=== PATIENT | male | born 1945 | race Caucasian/White ===

== ENCOUNTER 2020-05-27 09:13 | Outpatient (REF) | payer MEDICARE, SELFPAY ==
[2020-05-27 11:07] LABS: MANUAL DIFF FLAG NO
[2020-05-27 11:16] LABS: Basophils Percent Auto 0.5 % (0-2); Eosinophils Absolute Auto 0.3 X10*3/uL (0.0-0.4); Eosinophils Percent Auto 4.7 % (0-4); Hematocrit 45.5 % (42-52); Hemoglobin 14.8 g/dl (14.0-18.0); Imm Gran Abs Auto 0.01 X10*3/uL (0.00-0.03); Imm Gran Pct Auto 0.2 % (0.0-0.4); Lymphocytes Absolute Auto 2.6 X10*3/uL (1.2-4.9); Mean Corpuscular HGB Conc 32.5 g/dl (31.0-36.0); Mean Corpuscular Hemoglobin 31.2 pg (27.0-33.0); Mean Platelet Volume 12.9 fL (9.4-12.4); Monocytes Absolute Auto 0.5 X10*3/uL (0.1-1.2); Monocytes Percent Auto 8.3 % (2-11); Neutrophils Absolute Auto 2.2 X10*3/uL (2.0-8.3); Neutrophils Percent Auto 39.3 % (45-73); Platelet Count 119 X10*3/uL (160-400); Red Blood Count 4.74 X10*6/uL (4.60-5.80); Red Cell Distribution Width 12.7 % (11.0-16.0); White Blood Count 5.5 X10*3/uL (4.8-10.8)
[2020-05-27 11:39] LABS: Alanine Aminotransferase 102 U/L (0-40); Albumin Level 4.2 g/dL (3.5-5.0); Alkaline Phosphatase 93 U/L (39-117); Anion Gap 12 (12-20); Aspartate Amino Transferase 80 U/L (5-37); Bilirubin Total 0.8 mg/dL (0.0-1.0); Blood Urea Nitrogen 18 mg/dL (9-16); Calcium 8.7 mg/dL (8.4-10.2); Carbon Dioxide 28 mmol/L (22-29); Chloride 104 mmol/L (96-108); Estimated Glomerular Filt Rate > 60; Glucose Fasting 105 mg/dL (60-99); Potassium 4.2 mmol/l (3.3-5.1); Sodium 140 mmol/L (135-145); Total Protein 6.8 g/dL (6.5-8.0)
[2020-05-27 11:54] LABS: Hepatitis B Core Antibody Nonreactive (Nonreactive); ~Hepatitis B Surface Antibody NONREACTIVE (Nonreactive); ~Hepatitis C Antibody Nonreactive (Nonreactive)
[2020-05-27 11:59] LABS: HBsAGNum1 0.19 S/CO (0.00-0.99); Hepatitis A Antibody IgM 0.13 Index (0-0.79); Hepatitis B Surface Antigen Negative (Negative); ~Hepatitis A Antibody IgM Nonreactive (Nonreactive)
[2020-05-27 12:20] LABS: PSA,Total (Free>4and<10) < 0.05 ng/mL (0.00-4.00)
== END 2020-05-27 09:14 | disposition home or self-care (01) ==
LOC: HO.HMGCLDS 09:13
PROVIDERS: PCP Internal Medicine; Visit Provider Internal Medicine
DX: D69.6 Thrombocytopenia, unspecified (principal); I10 Essential (primary) hypertension; R74.8 Abnormal levels of other serum enzymes; R73.01 Impaired fasting glucose; Z12.5 Encounter for screening for malignant neoplasm of prostate
CPT/HCPCS: 36415; 80053; 84153; 85025; 86704; 86706; 86709; 86803; 87340

== ENCOUNTER 2020-12-20 10:19 | Outpatient (REF) | payer MEDICARE, SELFPAY ==
[2020-12-20 11:17] LABS: MANUAL DIFF FLAG NO
[2020-12-20 11:28] LABS: Basophils Percent Auto 0.5 % (0-2); Eosinophils Absolute Auto 0.2 X10*3/uL (0.0-0.4); Hemoglobin 14.3 g/dl (14.0-18.0); Imm Gran Abs Auto 0.01 X10*3/uL (0.00-0.03); Imm Gran Pct Auto 0.2 % (0.0-0.4); Lymphocytes Absolute Auto 2.5 X10*3/uL (1.2-4.9); Lymphocytes Percent Auto 45.9 % (20-40); Mean Corpuscular HGB Conc 32.5 g/dl (31.0-36.0); Mean Corpuscular Volume 95.4 fL (80-98); Mean Platelet Volume 12.8 fL (9.4-12.4); Monocytes Absolute Auto 0.5 X10*3/uL (0.1-1.2); Monocytes Percent Auto 9.7 % (2-11); Neutrophils Absolute Auto 2.2 X10*3/uL (2.0-8.3); Neutrophils Percent Auto 39.7 % (45-73); Platelet Count 112 X10*3/uL (160-400); Red Blood Count 4.61 X10*6/uL (4.60-5.80); Red Cell Distribution Width 13.2 % (11.0-16.0); White Blood Count 5.5 X10*3/uL (4.8-10.8)
[2020-12-20 12:07] LABS: Alanine Aminotransferase 84 U/L (0-40); Albumin Level 3.9 g/dL (3.5-5.0); Alkaline Phosphatase 87 U/L (39-117); Anion Gap 13 (12-20); Aspartate Amino Transferase 82 U/L (5-37); Blood Urea Nitrogen 18 mg/dL (9-16); Carbon Dioxide 25 mmol/L (22-29); Chloride 108 mmol/L (96-108); Estimated Glomerular Filt Rate > 60; Glucose Fasting 111 mg/dL (60-99); Potassium 4.4 mmol/L (3.3-5.1); Sodium 142 mmol/L (135-145); Total Protein 6.5 g/dL (6.5-8.0)
[2020-12-20 12:16] LABS: TSH reflex Free T4 2.62 uIU/mL (0.32-4.0)
== END 2020-12-20 10:20 | disposition home or self-care (01) ==
LOC: HO.HMGCLDS 10:19
PROVIDERS: PCP Internal Medicine; Visit Provider Internal Medicine
DX: D69.6 Thrombocytopenia, unspecified (principal); I10 Essential (primary) hypertension; R73.01 Impaired fasting glucose; R74.8 Abnormal levels of other serum enzymes
CPT/HCPCS: 36415; 80053; 82306; 84443; 85025

== ENCOUNTER 2021-02-12 17:21 | Emergency (ER) | payer MEDICARE, OTHER, SELFPAY ==
--- NOTE | ~2021-02-12 | CT_ITS ---
EXAMINATION: CT HEAD WITHOUT CONTRAST CLINICAL INFORMATION: Vertigo. COMPARISON: None TECHNIQUE: Contiguous axial imaging was performed from the skull base to vertex without intravenous administration of contrast. This CT examination was performed using dose optimization techniques as appropriate, variously including the following: *Automated exposure control. *Adjustment of mA and/or kV according to patient size (this includes techniques or standardized protocols for targeted exams where dose is matched to indication/reason for exam; i.e. extremities or head). *Use of iterative reconstruction technique. DLP: 697 mGy-cm FINDINGS: There is no evidence of acute intracranial hemorrhage or territorial infarction. No abnormal mass effect or midline shift is seen. [id number] matter differentiation is well preserved. No extra-axial fluid collections are identified. The ventricles and sulci are mildly prominent, consistent with diffuse atrophy. Mild periventricular white matter hypoattenuation, consistent with mild chronic microvascular ischemic disease. The osseous structures and soft tissues are normal. The mastoid air cells and visualized portions of the paranasal sinuses are well aerated. CT/CT head/brain wo con IMPRESSION: 1. No acute intracranial hemorrhage or mass effect. 2. Mild diffuse volume loss and chronic microvascular ischemic disease.
[2021-02-12 17:26] VITALS: BP 160/90; PULSE 45; O2SAT 98
[2021-02-12 17:30] VITALS: BP 166/59; PULSE 43; RESP 18; O2SAT 97; BMI 34.5
--- NOTE | 2021-02-12 17:42 | ED_ITS ---
HPI - Dizziness General Chief Complaint: Dizziness Stated Complaint: DIZZINESS X'S 2 TODAY Time Seen by Provider: 02/12/21 17:25 Source: patient, family, EMS and old records reviewed History of Present Illness HPI Narrative: Patient is a history of vertigo. He states he has recently been seen in a clinic and was started on meclizine which he has been taking once daily. He has been having intermittent episodes of feeling dizzy which he describes as the room spinning. It is worse with head movement. A causes nausea and vomiting. Episodes typically were lasting 1-2 minutes. The patient lasting increasingly longer. His last 2 episodes, 1 this morning and the 1 that brought him in hip so far lasted 15-20 minutes each. His current episode seems to be improving but he still has some disease symptoms. He has chronic tinnitus but it is not getting worse. He wears hearing aids. He is due to see physical therapy for his vertigo. He has never had imaging the with. History of reflux and hypertension. Not a smoker. No other obvious risk factors for stroke. Related Data Home Medications Medication Instructions Recorded Confirmed aspirin 81 mg tablet,delayed 81 mg PO DAILY 05/16/20 01/24/21 release (Adult Aspirin Regimen) flu vacc 2019-(65yr See Rx Instructions .ROUTE .COMPLEX 05/16/20 01/24/21 up)-MF59C(PF) 60 mcg(15 mcgx4)/0.5 mL IM syringe multivitamin 1 tab PO DAILY 05/16/20 01/24/21 Previous Rx's Medication Instructions Recorded lisinopril 20 mg tablet 20 mg PO DAILY 90 Days #90 tab 09/21/20 omeprazole 20 mg capsule,delayed 20 mg PO DAILY #90 cap 12/20/20 release prednisone 20 mg tablet 20 mg PO .COMPLEX #18 tab 01/14/21 meclizine 25 mg tablet 25 mg PO DAILY #10 tab 02/09/21 ondansetron HCl 4 mg tablet 4 mg PO Q8H PRN #20 tab 02/12/21 (Zofran) Allergies Allergy/AdvReac Type Severity Reaction Status Date / Time No Known Allergies Allergy Verified 02/09/21 13:59 [No Known Allergies*] Review of Systems Constitutional: Comments: No recent fevers or chills Eyes: Comments: No change in vision ENT: Comments: Chronic tinnitus without recent change Cardiovascular: Comments: No chest pain Respiratory: Comments: No difficulty breathing Gastrointestinal: Comments: No abdominal pain. Positive nausea vomiting. No diarrhea Neurologic: Comments: No focal weakness numbness or paresthesias. No diffi culty speaking. [facility] Past Medical History Medical History Elevated liver enzymes Essential hypertension GERD (gastroesophageal reflux disease) Impaired fasting glucose Prostate cancer Right bundle branch block Thrombocytopenia Surgical History History of hernia repair History of prostatectomy Family History Family History Father Diabetes mellitus Mother Alcoholic Brother Cancer of prostate Brother No problems noted. Sister No problems noted. Social History Social History Housing: House Alcohol intake: never Patient Tobacco Use Status: Never used Tobacco e-Cigarette/Vaping Use: Never Used Second Hand Smoke Exposure: No Advance Directives: No Advance Directives Information Provided: No Current occupational status: retired Physical Exam Vital Signs: Vital Signs: Last Vital Signs Temp 97.6 F 02/12/21 20:50 Pulse 45 L 02/12/21 20:50 Resp 18 02/12/21 20:50 BP 130/66 02/12/21 20:50 Pulse Ox 98 02/12/21 20:50 Body Mass Index 34.5 Const: Other: Awake and alert. Initially holding emesis bag and looking uncomfortable. Improved spontaneously during interview HENMT: Other: Normocephalic atraumatic Eyes: Other: Pupils equal round reactive to light. Positive extinguishing horizontal nystagmus on right lateral gaze. He also gets right-sided nystagmus on upward gaze. Also horizontal. No rotatory nystagmus. Vision is at baseline per patient Neck: Other: Full range of motion Resp: Other: Clear and equal bilaterally without wheezes rales or rhonchi. Good air entry Cardio: Other: Regular rhythm without murmurs rubs or gallops. Bradycardic which he states is baseline GI: Other: Soft nontender nondistended. Normoactive bowel sounds Skin: Other: Warm pink and dry without obvious rash Neuro: Other: Normal finger to nose. Normal heel to ruiz. 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 No pronator drift. Normal speech. No facial droop. Extrem: Other: No extremity trauma Psych: Other: Normal Course Course Course Narrative: Vertigo. Most likely peripheral. Less likely central Given risk factors of age and hypertension, will order CT scan to rule out obvious mass or hemorrhage. Treated with meclizine and Zofran. 9:04 p.m.. Workup is negative including CT scan urinalysis and lab work. Patient is feeling much better and was able ambulate independently. Stable for discharge home MDM - Dizziness Lab Data Result diagrams: 02/12/21 18:50 02/12/21 18:50 Labs: Lab Results 02/12/21 02/12/21 02/12/21 Range/Units 18:50 18:50 20:51 WBC 5.4 (4.8-10.8) X10*3/uL RBC 4.32 L (4.60-5.80) X10*6/uL Hgb 13.8 L (14.0-18.0) g/dl Hct 41.1 L (42-52) % MCV 95.1 (80-98) fL MCH 31.9 (27.0-33.0) pg MCHC 33.6 (31.0-36.0) g/dl RDW 13.1 (11.0-16.0) % Plt Count 116 L (160-400) X10*3/uL MPV 12.0 (9.4-12.4) fL Immature Gran % (Auto) 0.2 (0.0-0.4) % Neut % (Auto) 61.2 (45-73) % Lymph % (Auto) 25.2 (20-40) % [place] % (Auto) 9.1 (2-11) % Eos % (Auto) 3.9 (0-4) % Baso % (Auto) 0.4 (0-2) % Lymph # (Auto) 1.4 (1.2-4.9) X10*3/uL [place] # (Auto) 0.5 (0.1-1.2) X10*3/uL Eos # (Auto) 0.2 (0.0-0.4) X10*3/uL Baso # (Auto) 0.0 (0.0-0.2) X10*3/uL Abs Immat Gran (auto) 0.01 (0.00-0.03) X10*3/uL Absolute Neuts (auto) 3.3 (2.0-8.3) X10*3/uL Absolute Nucleated RBC 0.000 (0.0-0.012) X10*3/uL Nucleated RBC % (auto) 0.0 (0.0-0.2) /100WBC Sodium 143 (135-145) mmol/L Potassium 4.2 (3.3-5.1) mmol/L Chloride 110 H (96-108) mmol/L Carbon Dioxide 24 (22-29) mmol/L Anion Gap 13 (12-20) BUN 15 (9-16) mg/dL Creatinine 0.72 (0.5-1.4) mg/dL Estim Creat Clear Calc 119.9 Estimated GFR > 60 Random Glucose 126 H (60-115) mg/dL Calcium 8.8 (8.4-10.2) mg/dL Total Bilirubin 0.7 (0.0-1.0) mg/dL AST 80 H (5-37) U/L ALT 92 H (0-40) U/L Alkaline Phosphatase 86 (39-117) U/L Total Protein 6.3 L (6.5-8.0) g/dL Albumin 3.7 (3.5-5.0) g/dL Urine Color STRAW Urine Appearance CLEAR Urine pH 6.0 (5.0-8.0) Ur Specific [place] <= 1.005 (1.005-1.025) Urine Protein NEG (NEG-TRACE) MG/DL Urine Glucose (UA) NEG (NEG) MG/DL Urine Ketones NEG (NEG) MG/DL Urine Blood NEG (NEG) Urine Nitrite NEG (NEG) Ur Leukocyte Esterase NEG (NEG) Discharge Plan Discharge Clinical Impression: BPV (benign positional vertigo) Patient Disposition: Home, Self-Care Instructions: Benign Paroxysmal Positional Vertigo (ED) Prescriptions: New ondansetron HCl [Zofran] 4 mg tablet 4 mg PO Q8H PRN (Reason: nausea and vomiting) Qty: 20 RF: 0 No Action lisinopril 20 mg tablet 20 mg PO DAILY 90 Days Qty: 90 RF: 1 omeprazole 20 mg capsule,delayed release(DR/EC) 20 mg PO DAILY Qty: 90 RF: 0 Fluad Quad 2020-21(65y up)(PF) 60 mcg (15 mcg x 4)/0.5 mL syringe See Rx Instructions .ROUTE .COMPLEX RF: 0 multivitamin Tablet 1 tab PO DAILY RF: 0 aspirin [Adult Aspirin Regimen] 81 mg tablet,delayed release (DR/EC) 81 mg PO DAILY RF: 0 prednisone 20 mg tablet 20 mg PO .COMPLEX Qty: 18 RF: 0 meclizine 25 mg tablet 25 mg PO DAILY Qty: 10 RF: 0
[2021-02-12] MEDS: Ondansetron ODT 4 MG TAB.RAPDIS TRANSLINGU (17:52)
[2021-02-12] MEDS: Meclizine HCl 25 MG TABLET PO (17:52)
--- NOTE | 2021-02-12 18:00 | PC.NURSE ---
pt alert and oriented x3, vss. HR rate high 40s, pt states that is his baseline and PCP is aware. His also reports he sometimes runs lower than that. Pt reports he had a few episodes of dizziness accompanied by nausea this morning while in [employer]. He has history of vertigo and is on Meclizine. He states his past episodes of dizziness usually do not last long and no nausea however the episodes he had this morning lasted about 15 minutes. He denies pain, vomiting, fever, chills, headache. No other symptoms reported. Pt given PO meds for nausea and dizziness and tolerated meds well. Pt's is at his bedside.
[2021-02-12 18:55] LABS: MANUAL DIFF FLAG NO
[2021-02-12 18:57] LABS: Basophils Percent Auto 0.4 % (0-2); Eosinophils Absolute Auto 0.2 X10*3/uL (0.0-0.4); Eosinophils Percent Auto 3.9 % (0-4); Hematocrit 41.1 % (42-52); Hemoglobin 13.8 g/dl (14.0-18.0); Imm Gran Abs Auto 0.01 X10*3/uL (0.00-0.03); Imm Gran Pct Auto 0.2 % (0.0-0.4); Lymphocytes Absolute Auto 1.4 X10*3/uL (1.2-4.9); Lymphocytes Percent Auto 25.2 % (20-40); Mean Corpuscular HGB Conc 33.6 g/dl (31.0-36.0); Mean Corpuscular Hemoglobin 31.9 pg (27.0-33.0); Mean Corpuscular Volume 95.1 fL (80-98); Monocytes Absolute Auto 0.5 X10*3/uL (0.1-1.2); Monocytes Percent Auto 9.1 % (2-11); Neutrophils Absolute Auto 3.3 X10*3/uL (2.0-8.3); Neutrophils Percent Auto 61.2 % (45-73); Platelet Count 116 X10*3/uL (160-400); Red Blood Count 4.32 X10*6/uL (4.60-5.80); Red Cell Distribution Width 13.1 % (11.0-16.0); White Blood Count 5.4 X10*3/uL (4.8-10.8)
[2021-02-12 19:21] LABS: Alanine Aminotransferase 92 U/L (0-40); Albumin Level 3.7 g/dL (3.5-5.0); Alkaline Phosphatase 86 U/L (39-117); Anion Gap 13 (12-20); Aspartate Amino Transferase 80 U/L (5-37); Bilirubin Total 0.7 mg/dL (0.0-1.0); Blood Urea Nitrogen 15 mg/dL (9-16); Calcium 8.8 mg/dL (8.4-10.2); Carbon Dioxide 24 mmol/L (22-29); Chloride 110 mmol/L (96-108); Creatinine Clr Calc Pharmacy 119.9; Estimated Glomerular Filt Rate > 60; Glucose Random 126 mg/dL (60-115); Potassium 4.2 mmol/L (3.3-5.1); Sodium 143 mmol/L (135-145); Total Protein 6.3 g/dL (6.5-8.0)
[2021-02-12 19:51] VITALS: BP 156/70; PULSE 46; RESP 18; TEMP 36.4; O2SAT 98
[2021-02-12 20:50] VITALS: BP 130/66; PULSE 45; RESP 18; TEMP 36.4; O2SAT 98
[2021-02-12 20:58] LABS: Appearance Urine CLEAR; Color Urine STRAW; Glucose Urine UA NEG (NEG); Leukocyte Esterase Urine NEG (NEG); Nitrite Urine NEG (NEG); Specific Gravity - Urine <= 1.005 (1.005-1.025); Urine Blood NEG (NEG); Urine Ketones NEG (NEG); Urine Protein NEG (NEG-TRACE)
== END 2021-02-12 21:27 | disposition home or self-care (01) ==
PROVIDERS: Emergency Provider Emergency Medicine; PCP Internal Medicine
DX: H81.13 Benign paroxysmal vertigo, bilateral (principal); Z79.899 Other long term (current) drug therapy
CPT/HCPCS: 36415; 70450; 80053; 81003; 85025; 99283; 99284

== ENCOUNTER 2021-02-14 09:39 | Outpatient (RCR) | payer MEDICARE, OTHER, SELFPAY ==
--- NOTE | 2021-02-14 10:58 | MHC.PT.EP ---
[facility] [place] Office [place] Office [place] Office [address] Yuri Torres [address] [phone] F: [phone] F: [phone] F: [phone] F: [phone] Physical Therapy Plan of Care Date of Evaluation: Date of Surgery: Diagnosis: vertigo Assessment: The patient arrived reporting episodic violent vertigo attacks. Today he was negative for all signs and symptoms of BPPV. He had a slight weakness in his VOR. His dynamic and static balance were fairly normal. Minor deficit noted in static balance so I issued a HEP for his balance and his VOR. However, I was unable to provoke his vertigo in clinic. He may benefit from f/u with his Primary Care Doctor or an ENT to rule out Meniere's disease. He reports low frequency hearing loss, episodic vertigo, tinnitus, and occasional aural fullness. He was educated on reducing his current caffeine and salt level to see if it improved his episodes. (He currently drinks 6-8 cups of coffee/day. Frequency and Duration: The patient will be seen HEP Short Term Goals: Pt to demonstrate initial HEP independently. Goal met today [employer] Goals: Treatment Plan: Modalities to reduce pain, spasms and effusion. Manual therapy to restore motion and function. Therapeutic exercise to improve strength and flexibility. Neuromuscular re-education for posture and balance. Therapeutic activities to return to functional activities of daily living. Electronically signed by: Ashly Reyes PT DPT Please sign and return to therapist. Thank you for your referral.
== END 2021-03-20 08:00 | disposition home or self-care (01) ==
LOC: HO.PT 09:39
PROVIDERS: PCP Internal Medicine; Visit Provider Internal Medicine
DX: H81.10 Benign paroxysmal vertigo, unspecified ear (principal)
CPT/HCPCS: 97112; 97162

== ENCOUNTER 2022-04-18 13:12 | Outpatient (REF) | payer MEDICARE, OTHER, SELFPAY ==
[2022-04-18 14:38] LABS: Influenza A PCR NEGATIVE (Negative); Influenza B PCR NEGATIVE (Negative); Resp Syncy Virus RNA Qual PCR NEGATIVE (Negative); SARS COV2 PCR INHOUSE NEGATIVE (Negative)
== END 2022-04-18 13:13 | disposition home or self-care (01) ==
LOC: HO.LAB 13:12
PROVIDERS: Visit Provider Internal Medicine
DX: R43.9 Unspecified disturbances of smell and taste (principal); Z20.822 Contact with and (suspected) exposure to COVID-19
CPT/HCPCS: 0241U

== ENCOUNTER 2022-07-02 11:46 | Outpatient (AMB) | payer MEDICARE, SELFPAY ==
--- NOTE | 2022-07-02 12:16 | MHC.PC.OV ---
Vital Signs 07/02/22 12:17 Height 6 ft Weight 250 lb BMI 33.9 BP 106/70 Blood Pressure Location Lt brachial Position Sitting Pulse 44 L Pulse Oximetry (%) 98 Oxygen Delivery Method Room Air Intake Visit Reasons: 3 month follow up vertigo Allergies No Known Allergies [No Known Allergies*] Allergy (Verified 04/03/23 10:43) Medication List - Last Reconciled 07/02/22 by Deborah Meyer MD aspirin (Adult Aspirin Regimen) 81 mg PO DAILY hydrochlorothiazide 50 mg PO Q OTHER DAY lisinopril 20 mg PO DAILY 90 days meclizine 25 mg PO TID PRN multivitamin 1 tab PO DAILY omeprazole 20 mg PO DAILY ondansetron HCl (Zofran) 4 mg PO Q8H PRN Tobacco use date assessed: 07/02/22 Fall risk assessment: No Falls in past year Last assessed Fall Risk: 07/02/22 HPI 3 month follow up vertigo HPI Details 76 year old male, with history of thrombocytopenia, history of prostate cancer, impaired fasting glucose levels, GERD, hypertension, here today for follow-up on his blood pressure. Patient has been taking hydrochlorothiazide 50 mg 1 tablet every other day, lisinopril 20 mg daily. Blood pressure today is lower than last check. Patient however denies any complaints of chest pain, no lightheadedness, no nausea vomiting or shortness of breath. It was also noted on his vital sign that he is bradycardic, patient however remains asymptomatic [facility] Medical History Meniere disease Thrombocytopenia Elevated liver enzymes Prostate cancer Impaired fasting glucose Right bundle branch block GERD (gastroesophageal reflux disease) Essential hypertension Surgical History History of hernia repair History of prostatectomy Family History Father Diabetes mellitus Mother Alcoholic Brother Cancer of prostate Brother No problems noted. Sister No problems noted. Social History Household Members: Spouse Housing: House Alcohol intake: never Patient Tobacco Use Status: Never used Tobacco e-Cigarette/Vaping Use: Never Used Second Hand Smoke Exposure: No service: Yes Current occupational status: retired Cognitive needs: No Hearing needs: Yes Vision needs: Yes Questionnaire Thrive Questionnaire Date Thrive assessed: 12/19/20 AUDIT C Alcohol Use Questionnaire (AUDIT-C) 1. How often do you have a drink containing alcohol?: Never 3. How often do you have six or more drinks on one occasion?: Never Total Score: 0 Review of Systems Const Denies body aches, Denies fatigue, Denies fever(s), Denies headache(s) and Denies weakness ENT Denies dizziness, Denies headache(s), Denies nasal congestion, Denies nasal discharge and Denies sore throat Card Denies chest pain, Denies lightheadedness, Denies palpitations and Denies dyspnea Resp Denies chest congestion, Denies cough, Denies dyspnea and Denies wheezing GI Denies abdominal pain, Denies melena, Denies hematochezia, Denies change in bowel habits and Denies heartburn Denies dysuria, Denies urinary frequency and Denies urinary urgency Musc Reports no additional complaints Skin/Breast Denies lesions and Denies rash Neuro Denies dizziness, Denies headache(s) and Denies weakness Endo Denies fatigue, Denies polydipsia, Denies polyuria and Denies palpitations Yao/Lymph Denies easy bleeding and Denies easy bruising Aller/Immun Denies seasonal rhinorrhea and Denies wheezing Physical exam (Primary Care) Vital Signs: Last Vital Signs Pulse 44 L 07/02/22 12:17 BP 106/70 07/02/22 12:17 Pulse Ox 98 07/02/22 12:17 Oxygen Delivery Method Room Air 07/02/22 12:17 BMI result Body Mass Index 33.9 Tobacco/Smoking Status: Tobacco use Status Tobacco use date assessed 07/02/22 07/02/22 12:20 Patient Tobacco Use Status Never used Tobacco 07/02/22 12:20 e-Cigarette/Vaping Use Never Used 07/02/22 12:20 Thrive Assessment: Date of Thrive Assessment Date Thrive assessed 12/19/20 07/02/22 12:20 Const General: cooperative, comfortable and no acute distress Orientation/consciousness: patient oriented x3 HENMT Ears: external ears normal General nose exam: Normal external nose present Mouth: Normal oral and palatal mucosa present, oropharynx normal and moist mucous membranes Throat: Yes posterior oropharynx normal Eyes General: appearance normal, both eyes and all related structures Conjunctivae: conjunctivae normal Pupils: Equal, round and reactive pupils present EOM: EOMs intact bilaterally Neck Neck: Yes full ROM, Yes no lymphadenopathy and Yes supple Resp Effort & Inspection: normal respiratory effort and able to speak in complete sentences Auscultation: clear to auscultation bilaterally Cardio Rate: regular rate Rhythm: regular rhythm Heart sounds: S1 normal heart sound present and S2 normal heart sound present GI Inspection: Yes normal to inspection Palpation (GI): Soft to palpation, nontender and no masses Auscultation: normal bowel sounds Neuro General: patient oriented x3 Cranial nerves: Yes Equal, round and reactive pupils present Assessment and Plan Assessment & Plan (1) Impaired fasting glucose: Code(s): R73.01 - Impaired fasting glucose Plan: Fasting blood sugar and hemoglobin A1c ordered today, adherence to healthy eating habits and cutting back on excess carbohydrate intake recommended. He is staying active (2) Right bundle branch block: Code(s): I45.10 - Unspecified right bundle-branch block Plan: Currently symptomatic (3) Essential hypertension: Code(s): I10 - Essential (primary) hypertension Plan: Blood pressure at goal of less than 130/80. Continue with current medication. Reinforced importance of following a low sodium diet, getting regular exercise, and lowering stress levels. Orders: Orders Hemoglobin A1c 07/04/22 R73.01 - Impaired fasting glucose, I45.10 - Unspecified right bundle-branch block, I10 - Essential (primary) hypertension IRON PROFILE 07/04/22 R73.01 - Impaired fasting glucose, I45.10 - Unspecified right bundle-branch block, I10 - Essential (primary) hypertension Lipid Panel 07/04/22 R73.01 - Impaired fasting glucose, I45.10 - Unspecified right bundle-branch block, I10 - Essential (primary) hypertension Comprehensive [place]. Panel Fast 07/04/22 R73.01 - Impaired fasting glucose, I45.10 - Unspecified right bundle-branch block, I10 - Essential (primary) hypertension Complete Blood Count Auto Diff 07/04/22 R73.01 - Impaired fasting glucose, I45.10 - Unspecified right bundle-branch block, I10 - Essential (primary) hypertension Vitamin D 25-OH Total 07/04/22 R73.01 - Impaired fasting glucose, I45.10 - Unspecified right bundle-branch block, I10 - Essential (primary) hypertension Coding Level of Care Code Est Pt Level 3 (21527) Diagnoses Impaired fasting glucose R73.01 Right bundle branch block I45.10 Essential hypertension I10
[2022-07-02 12:17] VITALS: BP 106/70; PULSE 44; O2SAT 98; BMI 33.9
== END 2022-07-02 12:47 | disposition home or self-care (01) ==
LOC: HO.HMGC 11:46
PROVIDERS: PCP Internal Medicine; Visit Provider Internal Medicine
DX: R73.01 Impaired fasting glucose (principal); I45.10 Unspecified right bundle-branch block; I10 Essential (primary) hypertension
CPT/HCPCS: 99213

== ENCOUNTER 2022-07-04 10:05 | Outpatient (REF) | payer MEDICARE, OTHER, SELFPAY ==
[2022-07-04 12:08] LABS: Basophils Percent Auto 0.5 % (0-2); Eosinophils Absolute Auto 0.3 X10*3/uL (0.0-0.4); Eosinophils Percent Auto 3.4 % (0-4); Hematocrit 44.9 % (42.0-52.0); Hemoglobin 14.5 g/dl (14.0-18.0); Imm Gran Abs Auto 0.01 X10*3/uL (0.00-0.03); Imm Gran Pct Auto 0.1 % (0.0-0.4); Lymphocytes Absolute Auto 3.8 X10*3/uL (1.2-4.9); Lymphocytes Percent Auto 50.4 % (20-40); MANUAL DIFF FLAG SCAN; Mean Corpuscular HGB Conc 32.3 g/dl (31.0-36.0); Mean Corpuscular Hemoglobin 31.1 pg (27.0-33.0); Mean Corpuscular Volume 96.4 fL (80.0-98.0); Monocytes Absolute Auto 0.7 X10*3/uL (0.1-1.2); Monocytes Percent Auto 9.3 % (2-11); Neutrophils Absolute Auto 2.7 x10*3/uL (2.0-8.3); Neutrophils Percent Auto 36.3 % (45-73); PLT CLUMP 1; Red Blood Count 4.66 X10*6/uL (4.60-5.80); SCAN SMEAR FLAG 1
[2022-07-04 12:12] LABS: Alanine Aminotransferase 52 U/L (0-40); Albumin Level 4.1 g/dL (3.5-5.0); Alkaline Phosphatase 72 U/L (39-117); Anion Gap 15 (12-20); Aspartate Amino Transferase 45 U/L (5-37); Bilirubin Total 0.8 mg/dL (0.0-1.0); Blood Urea Nitrogen 20 mg/dL (9-16); Calcium 9.2 mg/dL (8.4-10.2); Carbon Dioxide 26 mmol/L (22-29); Chloride 106 mmol/L (96-108); Cholesterol 208 mg/dL; Estimated Glomerular Filt Rate > 60; Glucose Fasting 115 mg/dL (60-99); HDL Cholesterol 46 mg/dL; Iron 141 mcg/dL (45-160); LDL Cholesterol Calculated 133 mg/dl; Percent Iron Saturation 49 % (15-50); Potassium 4.1 mmol/L (3.3-5.1); Sodium 143 mmol/L (135-145); Total Iron Binding Capacity 289 mcg/dL (228-428); Total Protein 6.7 g/dL (6.5-8.0); Triglycerides 148 mg/dL; Unsaturated Iron Binding 148 ug/dL
[2022-07-04 12:26] LABS: Estimated Average Glucose 114 mg/dL; Hemoglobin A1c % 5.6 %
[2022-07-04 12:28] LABS: Vitamin D 25-OH Total 29.5 ng/mL (>30)
[2022-07-04 12:53] LABS: Platelet Count 121 X10*3/uL (160-400); White Blood Count 7.4 X10*3/uL (4.8-10.8)
[2022-07-04 12:55] LABS: SLIDE REVIEW VERIFIED
== END 2022-07-04 10:06 | disposition home or self-care (01) ==
LOC: HO.HMGCLDS 10:05
PROVIDERS: Visit Provider Internal Medicine
DX: I45.10 Unspecified right bundle-branch block (principal); R73.01 Impaired fasting glucose; I10 Essential (primary) hypertension
CPT/HCPCS: 36415; 80053; 80061; 82306; 83036; 83540; 85025

== ENCOUNTER 2022-12-03 09:09 | Outpatient (AMB) | payer MEDICARE, SELFPAY ==
--- NOTE | 2022-12-03 09:29 | MHC.OFFWIV ---
Intake Vital Signs 12/03/22 09:31 BP 120/68 Blood Pressure Location Rt brachial Position Sitting Pulse 56 Pulse Source Pulse Oximeter Temp 97.5 F Temp Source Oral Pulse Oximetry (%) 98 Oxygen Delivery Method Room Air Intake Visit Reasons: Ep, Cough, Ear Pain, Sinus Intake Note: Patient here for cold symptoms. He has been experiencing symptoms since which are cough, sore throat, slight congestion, chills and bodyaches. Denies any nausea, vomiting and diarrhea. Patient Tobacco Use Status: Never used Tobacco Allergies No Known Allergies [No Known Allergies*] Allergy (Verified 12/03/22 10:22) Medication List - Last Reconciled 12/03/22 by Jeromy Fraser MD aspirin (Adult Aspirin Regimen) 81 mg PO DAILY hydrochlorothiazide 50 mg PO Q OTHER DAY lisinopril 20 mg PO DAILY 90 days meclizine 25 mg PO TID PRN multivitamin 1 tab PO DAILY omeprazole 20 mg PO DAILY ondansetron HCl (Zofran) 4 mg PO Q8H PRN Do you need a note to return to daycare/school/sports/work: No HPI Ep, Cough, Ear Pain, Sinus HPI Details Patient presents for a sick visit. Reporting symptoms of sinus congestion, sore throat and difficulty swallowing. Low-grade fever. No family member is sick. No recent travel. Patient reports symptoms of malaise and fatigue. [facility] Medical History (Updated 07/02/22 @ 12:44 by Deborah Meyer MD) Elevated liver enzymes Essential hypertension GERD (gastroesophageal reflux disease) Impaired fasting glucose Meniere disease Prostate cancer Right bundle branch block Thrombocytopenia Surgical History History of hernia repair History of prostatectomy Family History Father Diabetes mellitus Mother Alcoholic Brother Cancer of prostate Brother No problems noted. Sister No problems noted. Social History Household Members: Spouse Housing: House Alcohol intake: never Patient Tobacco Use Status: Never used Tobacco e-Cigarette/Vaping Use: Never Used Second Hand Smoke Exposure: No service: Yes Current occupational status: retired Cognitive needs: No Hearing needs: Yes Vision needs: Yes Physical Exam Vital Signs: Last Vital Signs Temp 97.5 F 12/03/22 09:31 Pulse 56 12/03/22 09:31 BP 120/68 12/03/22 09:31 Pulse Ox 98 12/03/22 09:31 Oxygen Delivery Method Room Air 12/03/22 09:31 Const General: cooperative and healthy appearing Nutritional Appearance: well nourished Orientation/consciousness: patient oriented x3 Limitations: no limitations HEENT Head: Yes normal to inspection Eyes General: appearance normal, both eyes and all related structures Neck Neck: Yes normal visual inspection Chest Chest palpation & inspection: normal palpation of entire chest wall Resp Effort & Inspection: normal respiratory effort Neuro General: patient oriented x3 Assessment & Plan Assessment & Plan (1) Upper respiratory tract infection: Code(s): J06.9 - Acute upper respiratory infection, unspecified Plan: Antibiotics ordered. Increase fluid intake. Tylenol for aches and pains. If symptoms worsen, follow-up here for a recheck. Coding Level of Care Code Est Pt Level 3 (42008) Diagnoses Upper respiratory tract infection J06.9
[2022-12-03 09:31] VITALS: BP 120/68; PULSE 56; TEMP 36.4; O2SAT 98
== END 2022-12-03 10:41 | disposition home or self-care (01) ==
PROVIDERS: PCP Internal Medicine; Visit Provider Internal Medicine
DX: J06.9 Acute upper respiratory infection, unspecified (principal)
CPT/HCPCS: 99213

== ENCOUNTER 2023-04-03 10:02 | Outpatient (AMB) | payer MEDICARE, SELFPAY ==
[2023-04-03 10:09] VITALS: BP 102/64; PULSE 55; O2SAT 96; BMI 33.3
--- NOTE | 2023-04-03 10:09 | A.OFFVIS_ITS ---
Intake Vital Signs 04/03/23 10:09 Height 6 ft Weight 245 lb 8 oz BMI 33.3 BP 102/64 Blood Pressure Location Lt brachial Position Sitting Pulse 55 Pulse Source Pulse Oximeter Pulse Oximetry (%) 96 Oxygen Delivery Method Room Air Intake Visit Reasons: SWV Allergies No Known Allergies [No Known Allergies*] Allergy (Verified 04/03/23 10:43) Medication List - Last Reconciled 04/03/23 by Deborah Meyer MD aspirin (Adult Aspirin Regimen) 81 mg PO DAILY hydrochlorothiazide 50 mg PO Q OTHER DAY lisinopril 20 mg PO DAILY 90 days meclizine 25 mg PO TID PRN multivitamin 1 tab PO DAILY omeprazole 20 mg PO DAILY HPI SWV HPI Details SWV ? 77 year old presents male with hypertension, thrombocytopenia, Meniere's disease, impaired fasting glucose, with history of right bundle branch block and GERD, presents for his subsequent annual wellness visit.? He is up-to-date with his colonoscopy last done 11/04/2015, done by Dr. Parkinson with negative findings, due again in 2025. He is up-to-date with his cholesterol screening, last done 07/04/2022 as well as is screening for diabetes mellitus, which showed impaired fasting glucose with a glucose level at 115 mg per dL. Has history of prostate cancer status post at ectomy, no longer being followed by Urology, with last PSA level within normal limits 05/27/2020. He is up-to-date with his flu shot and COVID vaccination as well as pneumo coccal vaccination, but has not received his shingles vaccine yet. ? Medical / Social History Reviewed? Past Medical History ?Yes . ? [place] of Care / Care Team list updated ?Yes . ? Surgical/Hospitalization History ?Yes . ? Current Medications (including OTC and supplements) ?Yes . ? Family History ?Yes . ? Tobacco Control form ?Yes . ? AUDIT-C (Alcohol use) form ?Yes . ? Illicit drug use in Social History ?Yes . ? Current diagnosis of depression? ?No ? Appropriate PHQ2/PHQ9 completed ?Yes . ? Data entered by ?Legal Collector and reviewed by provider ? Fall Risk ? Fall History? Have you had any falls with injury in the past year? ?No . ? Have you had two or more falls in the past year? ?No . ? Fall Risk Assessment: ?No falls in the past year . ? HRA filled out by the patient, reviewed by Provider and scanned. ?SWV ? Balance? [place] ?Yes . ? Tandem walk ?Yes . ? Walk and Turn ?Yes . ? Rise from sit to stand ?Yes . ?Vision? Corrective lens ?Yes ? Vision screen ? Up-to-date, he sees Dr. Bach ?Hearing? Whisper test ?failed , wears hearing aid ?Written Plan?Completed. See Patient Documents.? [facility] Medical History Meniere disease Thrombocytopenia Elevated liver enzymes Prostate cancer Impaired fasting glucose Right bundle branch block GERD (gastroesophageal reflux disease) Essential hypertension Surgical History History of hernia repair History of prostatectomy Family History Father Diabetes mellitus Mother Alcoholic Brother Cancer of prostate Brother No problems noted. Sister No problems noted. Social History Household Members: Spouse Housing: House Alcohol intake: never Patient Tobacco Use Status: Never used Tobacco e-Cigarette/Vaping Use: Never Used Second Hand Smoke Exposure: No service: Yes Current occupational status: retired Cognitive needs: No Hearing needs: Yes Vision needs: Yes Questionnaire Medicare Wellness Checkup [age] What gender do you identify with?: male During the past 4 weeks, how much have you been bothered by emotional problems such as feeling anxious, depressed, irritable, sad or downhearted, and blue?: not at all During the past 4 weeks, has your physical & emotional health limited your social activities with family, friends, neighbors, or groups?: not at all During the past 4 weeks, how much bodily pain have you generally had?: very mild pain During the past 4 weeks, was someone available to help you if you needed & wanted help?: yes, quite a bit During the past 4 weeks, what was the hardest physical activity you could do for at least 2 minutes?: heavy Can you get to places out of walking distance without help? (For eg., can you travel alone on buses, taxis or drive your car?): Yes Can you go shopping for groceries or clothes without someone's help?: Yes Can you prepare your own meals?: Yes Can you do your housework without help?: Yes Because of any health problems, do you need the help of another person with your personal care needs such as eating, bathing, dressing or getting around the house?: No Can you handle your own money without help?: Yes During the past 4 weeks, how would you rate your health in general?: very good During the past 4 weeks how have things been going for you?: pretty well Are you having difficulties driving your car?: no Do you always fasten your seat belt when you are in a car?: yes, usually During past 4 weeks, have you been bothered by the following: never: Falling or dizzy when standing up, Trouble eating well?, Teeth or denture problems? and Problems using the telephone?, seldom: Tiredness or fatigue? and sometimes: Sexual problems? Have you fallen 2 or more times in the past year?: No Are you afraid of falling?: No Are you a smoker?: no During the past 4 weeks, how many drinks of wine, beer, or other alcoholic beverages did you have?: no alcohol at all Do you exercise for about 20 minutes 3 or more times a week?: yes, some of the time Have you been given information to help with the following?: yes: Hazards in your house that might hurt you? and yes: Keeping track of your medications? How often do you have trouble taking medicines the way you have been told to take them?: I always take medicine as prescribed How confident are you that you can control & manage most of your health problems?: somewhat confident What is your race?: White Mini Mental State Exam (MMSE) Orientation What is the (year) (season) (date) (day) (month)?: year (2022), season (Fall), date (04/03/2023), day (Saturday) and month (March) Where are we (state) (county) (town or city) (hospital) (floor)?: state ([place]), [facility] ([place]), town or city ([place]) and hospital/clinic ([facility]) Score Score: 9 Activity of Daily Living Bathing - sponge bath, tub bath or shower: receives no assistance (gets in/out by self, if usual bathing means Dressing - getting clothes from closets & drawers, including inner/outer garments & fasteners.: gets clothes & gets completely dressed without help Toileting - going to the 'toilet room' for urine/bowel elimination & cleaning self/arranging clothes: goes to toilet room, cleans self, arranges clothes without help Transfer: moves in & out of bed and chair without help (may use support object) Continence: controls urination/bowel movements completely by self Feeding: feeds self without help Total Score: 0 Information obtained from: patient Using telephone: independent Traveling: independent Shopping: independent Preparing meals: independent Housework: independent Taking medicine: independent Managing money: independent PHQ-9 Over the last 2 weeks, how often have you been bothered by any of the following problems? 1. Little interest or pleasure in doing things: not at all 2. Feeling down, depressed, or hopeless: not at all 3. Trouble falling or staying asleep, or sleeping too much: not at all 4. Feeling tired or having little energy: not at all 5. Poor appetite or overeating: not at all 6. Feeling bad about yourself - or that you are a failure or have let yourself or your family down: not at all 7. Trouble concentrating on things, such as reading the newspaper or watching television: not at all 8. Moving or speaking so slowly that other people could have noticed. Or the opposite - being so fidgety or restless that you have been moving around a lot more than usual: not at all 9. Thoughts that you would be better off or of hurting yourself in some way: not at all Total score: 0 Depression Screening Interpretation: Negative Depression Screening Done: Yes 89917 - PHQ-9 Billing: Yes Source: Developed by Drs. Brien Jacinto, Raiza Willams, Neil Pastor and colleagues, with an educational erin from [employer]. Physical Exam Vital Signs: Last Vital Signs Pulse 55 04/03/23 10:09 BP 102/64 04/03/23 10:09 Pulse Ox 96 04/03/23 10:09 Oxygen Delivery Method Room Air 04/03/23 10:09 BMI result Body Mass Index 33.3 Assessment & Plan Assessment & Plan (1) Encounter for subsequent annual wellness visit (AWV) in Medicare patient: Code(s): Z00.00 - Encounter for general adult medical examination without abnormal findings Plan: Medical wellness checklist reviewed, discussed with patient and updated. Copy given. (2) Meniere disease: Comment: sees Dr Harvey , placed on meclizine and HCTZ Code(s): H81.09 - Meniere's disease, unspecified ear Qualifiers: Laterality: bilateral Qualified Code(s): H81.03 - Meniere's disease, bilateral (3) Impaired fasting glucose: Code(s): R73.01 - Impaired fasting glucose Plan: Your fasting blood sugars elevated above 100 mg/dL. Impaired glucose metabolism O2 at risk for developing diabetes mellitus type 2, as well as heart attack and stroke later on. Lifestyle changes at just weight loss, healthy eating habits, and regular exercise are important, and can prevent the progression to diabetes (4) Thrombocytopenia: Code(s): D69.6 - Thrombocytopenia, unspecified Plan: Currently asymptomatic (5) GERD (gastroesophageal reflux disease): Code(s): K21.9 - Gastro-esophageal reflux disease without esophagitis Plan: Takes omeprazole 20 mg daily (6) Essential hypertension: Code(s): I10 - Essential (primary) hypertension Plan: Continue with hydrochlorothiazide and lisinopril Quality Reporting (2019) Depression/Bipolar (159/160/161/177) PHQ-9: Total score: 0 Coding Level of Care Code Medicare Subsequent (G0439) Diagnoses Encounter for subsequent annual wellness visit (AWV) in Medicare patient Z00.00 Meniere's disease of both ears H81.03 Laterality: bilateral Impaired fasting glucose R73.01 Thrombocytopenia D69.6 GERD (gastroesophageal reflux disease) K21.9 Essential hypertension I10 CPT Codes Advance Care Planning - Advance Care Planning discussion: On file, no changes ([id number]) Advance Care Planning - Time spent: 1-15 minutes, on File ([id number]) Advance Care Planning Advance Care Planning discussion: On file, no changes Date of discussion: 04/03/23 Who was present: patient and Time spent: 1-15 minutes, on File Actual minutes spent: 15
== END 2023-04-03 11:09 | disposition home or self-care (01) ==
PROVIDERS: Visit Provider Internal Medicine
DX: Z00.00 Encounter for general adult medical examination without abnormal findings (principal); D69.6 Thrombocytopenia, unspecified; H81.03 Meniere's disease, bilateral; R73.01 Impaired fasting glucose; K21.9 Gastro-esophageal reflux disease without esophagitis; I10 Essential (primary) hypertension
CPT/HCPCS: 1123F; G0439

== ENCOUNTER 2023-06-13 15:09 | Outpatient (AMB) | payer MEDICARE, SELFPAY ==
[2023-06-13 15:10] VITALS: BP 126/72; PULSE 52; TEMP 36.4; O2SAT 96; BMI 33.9
--- NOTE | 2023-06-13 15:10 | AM.OFFWIN_ITS ---
Intake Vital Signs 06/13/23 15:10 Height 6 ft Weight 250 lb BMI 33.9 BP 126/72 Blood Pressure Location Lt brachial Position Sitting Pulse 52 Pulse Source Pulse Oximeter Temp 97.5 F Temp Source Temporal Artery Scan Pulse Oximetry (%) 96 Oxygen Delivery Method Room Air Intake Visit Reasons: EP blood in urine kidney pain Intake Note: pt is here today for blood in urine kidney pain started saturday Patient Tobacco Use Status: Never used Tobacco Allergies No Known Allergies [No Known Allergies*] Allergy (Verified 06/13/23 15:23) Do you need a note to return to daycare/school/sports/work: No HPI HPI Comments History of Present Illness Details 78 y/o male patient presents to walk in clinic with c/o blood in urine since Saturday this week. Reports sharp pain left lower back. Denies Dysuria, burning or odor with urination. Prior h/o Prostate CA with Prostectomy performed by Dr. Trammell ([facility] Medical History Meniere disease Thrombocytopenia Elevated liver enzymes Prostate cancer Impaired fasting glucose Right bundle branch block GERD (gastroesophageal reflux disease) Essential hypertension Surgical History History of hernia repair History of prostatectomy Family History Father Diabetes mellitus Mother Alcoholic Brother Cancer of prostate Brother No problems noted. Sister No problems noted. Social History Household Members: Spouse Housing: House Alcohol intake: never Patient Tobacco Use Status: Never used Tobacco e-Cigarette/Vaping Use: Never Used Second Hand Smoke Exposure: No service: Yes Current occupational status: retired Cognitive needs: No Hearing needs: Yes Vision needs: Yes Review of Systems Const All systems reviewed & are unremarkable except as noted in HPI and below Physical Exam Vital Signs: Last Vital Signs Temp 97.5 F 06/13/23 15:10 Pulse 52 06/13/23 15:10 BP 126/72 06/13/23 15:10 Pulse Ox 96 06/13/23 15:10 Oxygen Delivery Method Room Air 06/13/23 15:10 BMI result Body Mass Index 33.9 Const General: comfortable and no acute distress Resp Auscultation: clear to auscultation bilaterally Cardio Rate: regular rate Rhythm: regular rhythm General: Yes bladder normal to palpation and Yes CVA tenderness on the left Back/Spine/Pelvis Back: CVA tenderness Results AMB Urinalysis, Automated UA Leukoctes 15 Lida/uL Last Edit by Daniella Bourne, MISTY on 06/13/23 15:47 UA Nitrite Negative Last Edit by Daniella Bourne, [facility] on 06/13/23 15:47 UA Urobilinogen 0.2 mg/dL Last Edit by Daniella Bourne, [facility] on 06/13/23 15:47 UA Protein 100 mg/dL Last Edit by Daniella Bourne, [facility] on 06/13/23 15:47 UA pH 5.5 Last Edit by Daniella Bourne, [facility] on 06/13/23 15:47 UA Blood 200 Anthony/uL Last Edit by Daniella Bourne, [facility] on 06/13/23 15:47 UA Specific [place] 1.025 Last Edit by Daniella Bourne, [facility] on 06/13/23 15:47 UA Ketone Negative Last Edit by Daniella Bourne, [facility] on 06/13/23 15:47 UA Bilirubin 0 mg/dL Last Edit by Daniella Bourne, [facility] on 06/13/23 15:47 UA Glucose 0 mg/dL Last Edit by Daniella Bourne, [facility] on 06/13/23 15:47 Assessment & Plan Assessment & Plan (1) Hematuria due to acute cystitis: Code(s): N30.01 - Acute cystitis with hematuria Plan: - Prob Kidney stone/infection - Prev h/o Prostate CA, Advised to f/u with Urology - Hydrate with plenty of water. Orders: Orders AMB Urinalysis Automated Today Z13.9 - Encounter for screening, unspecified Medications: New ciprofloxacin HCl 500 mg PO BID 10 days 20 tabs 0RF N30.01 - Acute cystitis with hematuria Coding Level of Care Code Est Pt Level 3 (30483) Diagnoses Hematuria due to acute cystitis N30.01 Time Spent (min) 15
== END 2023-06-13 15:52 | disposition home or self-care (01) ==
PROVIDERS: PCP Internal Medicine; Visit Provider Nurse Practitioner Family
DX: N30.01 Acute cystitis with hematuria (principal)
CPT/HCPCS: 81003; 99213

== ENCOUNTER 2023-09-09 11:13 | Outpatient (AMB) | payer MEDICARE, SELFPAY ==
--- NOTE | 2023-09-09 11:18 | MHC.PC.OV ---
Vital Signs 09/09/23 11:19 Height 6 ft Weight 245 lb BMI 33.2 BP 112/70 Blood Pressure Location Rt brachial Position Sitting Pulse 57 Pulse Source Pulse Oximeter Pulse Oximetry (%) 100 Oxygen Delivery Method Room Air Intake Visit Reasons: kidnew resection 09/17 Intake Note: Pt is here today for a kidney resection 09/18/23 Allergies No Known Allergies [No Known Allergies*] Allergy (Verified 09/09/23 11:58) Medication List - Last Reconciled 09/09/23 by Deborah Meyer MD aspirin (Adult Aspirin Regimen) 81 mg PO DAILY hydrochlorothiazide 50 mg PO Q OTHER DAY lisinopril 20 mg PO DAILY 90 days meclizine 25 mg PO TID PRN multivitamin 1 tab PO DAILY omeprazole 20 mg PO DAILY Tobacco use date assessed: 09/09/23 Fall risk assessment: No Falls in past year Last assessed Fall Risk: 09/09/23 Dental Screening Dental Screen Date: 09/09/23 Did you have a dental visit in the last 12 months?: Yes Did you have a dental problem in the last 6 months where you did not have access to dental care?: No Was dental information given to patient?: Patient has dentist HPI kidnew resection 09/17 HPI Details 78-year-old male with history of prostate cancer status post prostatectomy in [address] Trammell, has Meniere's disease,, hypertension GERD, and right bundle branch block as seen on EKG with sinus bradycardia, here today for preoperative exam for transfer throat resection of the bladder scheduled for 09/18/2023, requested by Dr. Trammell. Patient has been feeling well, currently without any complaints of chest pain, no abdominal pain, no back pain, urinary urgency or frequent see no further episodes of hematuria . He chronic thrombocytopenia, likely ITP, asymptomatic for which he has never required any therapy, seen by Hematology. Denies any B symptoms like fever, chills or night sweats, no evidence of easy bruisability or abnormal systemic bleeding. Hypertension stable controlled on lisinopril and hydrochlorothiazide. He has sinus bradycardia right bundle branch block, LAD, which has been noted on EKG in 2018 and 2020., as well as on most recent EKG done here the clinic. He has been seen by Cardiology, Dr. Gonzalez who did Holter monitor in 2019 which showed predominant rhythm of sinus bradycardia with right bundle branch block frequent PACs with rare atrial bigeminy., . no significant pause seen. Patient asymptomatic with no further treatment indicated. [facility] Medical History (Updated 09/09/23 @ 12:57 by Deborah Meyer MD) Neoplasm of bladder History of prostate cancer Meniere disease Thrombocytopenia Elevated liver enzymes Prostate cancer Impaired fasting glucose Right bundle branch block GERD (gastroesophageal reflux disease) Essential hypertension Surgical History History of hernia repair History of prostatectomy Family History Father Diabetes mellitus Mother Alcoholic Brother Cancer of prostate Brother No problems noted. Sister No problems noted. Social History Household Members: Spouse Housing: House Alcohol intake: never Patient Tobacco Use Status: Never used Tobacco e-Cigarette/Vaping Use: Never Used Second Hand Smoke Exposure: No service: Yes Current occupational status: retired Cognitive needs: No Hearing needs: Yes Vision needs: Yes Questionnaire PHQ-9 Over the last 2 weeks, how often have you been bothered by any of the following problems? 1. Little interest or pleasure in doing things: not at all 2. Feeling down, depressed, or hopeless: not at all 3. Trouble falling or staying asleep, or sleeping too much: not at all 4. Feeling tired or having little energy: not at all 5. Poor appetite or overeating: not at all 6. Feeling bad about yourself - or that you are a failure or have let yourself or your family down: not at all 7. Trouble concentrating on things, such as reading the newspaper or watching television: not at all 8. Moving or speaking so slowly that other people could have noticed. Or the opposite - being so fidgety or restless that you have been moving around a lot more than usual: not at all 9. Thoughts that you would be better off or of hurting yourself in some way: not at all Total score: 0 Depression Screening Interpretation: Negative Depression Screening Done: Yes 29402 - PHQ-9 Billing: Yes Source: Developed by Drs. Brien Raiza Padron Kurt Kroenke and colleagues, with an educational erin from [employer]. Thrive Questionnaire Date Thrive assessed: 09/09/23 I am a: Patient What is your living situation today?: I have a steady place to live Within the past 12 months, did the food you bought not last and you didn't have the money to get more?: Never true Within the past 12 months, did you worry whether your food would run out before you got money to buy more?: Never true Do you have trouble paying for medicines?: No Do you have trouble getting transportation to medical appointments?: No Do you have trouble paying your heating and electricity bill?: No Do you have trouble taking care of your child, family member or friend?: No Do you have trouble with day-to-day activities such as bathing, preparing meals, shopping, managing finances, etc.?: No Are you currently unemployed and looking for a job?: No Are you interested in more education?: No THRIVE Score: 0 AUDIT C Alcohol Use Questionnaire (AUDIT-C) 1. How often do you have a drink containing alcohol?: Never Total Score: 0 RANULFO-7 AMB Questionnaire RANULFO-7 Date RANULFO - 7 assessed: 09/09/23 Feeling nervous, anxious, or on edge: 0 = Not at all Not being able to stop or control worryin = Not at all Worrying too much about different things: 0 = Not at all Trouble relaxin = Not at all Being so restless that it is hard to sit still: 0 = Not at all Becoming easily annoyed or irritable: 0 = Not at all Feeling afraid as if something awful might happen: 0 = Not at all Total RANULFO-7 score (0-4 normal; 5-9 mild; 10-14 moderate; 15-21 severe): 0 Source: Developed by Drs. Brien Jacinto, Neil Porter and colleagues, with an educational erin from [employer]. RANULFO-7 Assessment Billing RANULFO-7 Assessment Tool: RANULFO-7 Assessment 21924 Review of Systems Const Denies body aches, Denies fatigue, Denies fever(s), Denies headache(s) and Denies weakness Eyes Denies change in vision ENT Denies dizziness, Denies headache(s), Denies nasal congestion, Denies nasal discharge and Denies sore throat Card Denies chest pain, Denies lightheadedness, Denies palpitations and Denies dyspnea Resp Denies chest congestion, Denies cough, Denies dyspnea and Denies wheezing GI Denies abdominal pain, Denies melena, Denies hematochezia, Denies change in bowel habits and Denies heartburn Denies hematuria, Denies oliguria, Denies difficulty urinating, Denies dysuria, Denies urinary frequency and Denies urinary urgency Musc Reports no additional complaints Skin/Breast Denies lesions and Denies rash Neuro Denies dizziness, Denies headache(s) and Denies weakness Psych Reports no additional complaints Endo Denies fatigue, Denies polydipsia, Denies polyuria and Denies palpitations Yao/Lymph Denies easy bleeding and Denies easy bruising Aller/Immun Denies seasonal rhinorrhea and Denies wheezing Physical exam (Primary Care) Vital Signs: Last Vital Signs Pulse 57 09/09/23 11:19 BP 112/70 09/09/23 11:19 Pulse Ox 100 09/09/23 11:19 Oxygen Delivery Method Room Air 09/09/23 11:19 BMI result Body Mass Index 33.2 Tobacco/Smoking Status: Tobacco use Status Tobacco use date assessed 09/09/23 09/09/23 11:26 Patient Tobacco Use Status Never used Tobacco 09/09/23 11:26 e-Cigarette/Vaping Use Never Used 09/09/23 11:26 PHQ-9: PHQ-9 Score PHQ-9: Total score 0 09/09/23 12:00 Depression Screening Interpretation: Negative Thrive Assessment: Date of Thrive Assessment Date Thrive assessed 09/09/23 09/09/23 11:26 Const General: cooperative, comfortable and no acute distress Orientation/consciousness: patient oriented x3 HENMT Ears: external ears normal General nose exam: Normal external nose present Mouth: Normal oral and palatal mucosa present, oropharynx normal and moist mucous membranes Throat: Yes posterior oropharynx normal Eyes General: appearance normal, both eyes and all related structures Conjunctivae: conjunctivae normal Pupils: Equal, round and reactive pupils present EOM: EOMs intact bilaterally Neck Neck: Yes full ROM, Yes no lymphadenopathy and Yes supple Resp Effort & Inspection: normal respiratory effort and able to speak in complete sentences Auscultation: clear to auscultation bilaterally Cardio Rate: regular rate Rhythm: regular rhythm Heart sounds: S1 normal heart sound present and S2 normal heart sound present GI Inspection: Yes normal to inspection Palpation (GI): Soft to palpation, nontender and no masses Auscultation: normal bowel sounds General: Yes Bimanual renal exam normal bilaterally and Yes no CVA tenderness Back/Spine/Pelvis Back: no CVA tenderness Skin General skin exam: no rashes or lesions noted Neuro General: patient oriented x3 Cranial nerves: Yes Equal, round and reactive pupils present Extrem General: Yes full ROM, Yes no joint enlargement, Yes no pedal edema and Yes normal gait Psych Appearance: grossly normal and well kempt Speech and movement: Normal speech and movement present Affect: normal affect Results Reviewed Results Reviewed: EKG done in the office showed presence of sinus bradycardia with a rate of 55 beats per min, right bundle branch block present with LAD, no change from EKG done 02/09/2021 Assessment and Plan Assessment & Plan (1) Encounter for pre-operative examination: Code(s): Z01.818 - Encounter for other preprocedural examination Plan: 78 year old male with hypertension, sinus bradycardia with right bundle branch block, unchanged from previous EKGs, history of prostate cancer status post prostatectomy in 2002 , chronic thrombocytopenia currently asymptomatic, here for pre-op clearance for trans urethral resection of the bladder with Dr. Trammell scheduled for 09/18/2023. Pre-op exam is unremarkable. EKG shows: Sinus bradycardia with a rate of 55 beats per minute, right bundle branch block, LAD, no change from previous EKG of 02/09/2021 patient advised to hold aspirin 5 days prior to scheduled surgery. He has low cardiac risk index for proposed procedure (2) Neoplasm of bladder: Code(s): D49.4 - Neoplasm of unspecified behavior of bladder Plan: Scheduled for transurethral resection of bladder with Dr. Trammell on 09/18/2023 (3) Thrombocytopenia: Comment: Seen and evaluated by Hematology in 2017, currently asymptomatic, with platelet count stable Code(s): D69.6 - Thrombocytopenia, unspecified Plan: Currently asymptomatic (4) Essential hypertension: Code(s): I10 - Essential (primary) hypertension Plan: Blood pressure at goal of less than 130/80. Continue with lisinopril 20 mg daily and hydrochlorothiazide 50 mg 1 tablet every other day. Reinforced importance of following a low sodium diet, getting regular exercise, and lowering stress levels. Orders: Orders AMB EKG-In Office Today D49.4 - Neoplasm of unspecified behavior of bladder, Z01.818 - Encounter for other preprocedural examination Coding Level of Care Code Est Pt Level 4 (34724) Diagnoses Encounter for pre-operative examination Z01.818 Neoplasm of bladder D49.4 Thrombocytopenia D69.6 Essential hypertension I10 Additional Codes RANULFO-7 Assessment Billing - RANULFO-7 Assessment Tool: RANULFO-7 Assessment 26649 ([id number])
[2023-09-09 11:19] VITALS: BP 112/70; PULSE 57; O2SAT 100; BMI 33.2
== END 2023-09-09 13:25 | disposition home or self-care (01) ==
LOC: HO.HMGC 11:13
PROVIDERS: PCP Internal Medicine; Visit Provider Internal Medicine
DX: Z01.818 Encounter for other preprocedural examination (principal); D49.4 Neoplasm of unspecified behavior of bladder; D69.6 Thrombocytopenia, unspecified; I10 Essential (primary) hypertension
CPT/HCPCS: 99214

== ENCOUNTER → 2024-01-28 10:26 | Outpatient (RCR) | payer MEDICARE, SELFPAY ==
--- NOTE | 2021-01-24 13:30 | PM.HEMONCCN ---
Subjective - Subjective Chief complaint: Consult for: Thrombocytopenia. Patient: new to practice Consult date: 01/24/21 Requesting Physician: Betsy. 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 ITP. HPI - Consult Narrative Reason for consult: Consult for: Thrombocytopenia. Narrative: Bobo Yost is a pleasant 75 year old gentleman, who was seen here previously in 2018. He has had a chronic mild thrombocytopenia, since he was 22-year-old, he says. Review of his labs from October of 2019 reveal serial platelet count to be: 115/119/112/149. Review of his previous labs from May 1995 revealed a normal CBC with a platelet count of 155. October 1996, the platelets are 124. June 2015, the platelets were 133 and December 15, white count 5.9, hemoglobin 14.1, hematocrit 41.8, platelets of 125. He tells me that back in about 35 years ago, he was actually seen at [facility] by a supervisor [employer] and had had a bone marrow exam done. ROS: He denies easy fatigability. No fever nor chills. Appetite is good. He denies weight loss. He denies headaches. Only thing is he had developed vertigo after he cleaned his ear with a Q-tip. He was given a course of steroids he just completed that 2 days ago. That did help his vertigo. Denies chest pain or trouble breathing. No abdominal pain nausea vomiting heartburn indigestion. Bowels are working without any gross blood in it. He enjoys a good appetite. His weight is stable. Denies any urinary complaints. Sometime he feels achy. Sometimes his knees hurt. Denies any focal weakness. Denies depression. No rashes not pruritus. Family history: A brother also has low platelet count. Two brothers had heart attacks. 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 He is . He adopted 2 daughters. He denies smoking nor alcohol use. Review of Systems - Constitutional Reports system reviewed and no additional complaints, except as documented - Eyes Reports system reviewed and no additional complaints, except as documented - ENT Reports system reviewed and no additional complaints, except as documented - Cardiovascular Reports system reviewed and no additional complaints, except as documented - Respiratory Reports no additional respiratory complaints - Gastrointestinal Reports system reviewed and no additional complaints, except as documented - Genitourinary Genitourinary: Reports no additional male genitourinary complaints - Musculoskeletal Reports system reviewed and no additional complaints, except as documented - Integumentary/Breasts Skin/Breast: Reports no additional skin complaints - Neurologic Reports system reviewed and no additional complaints, except as documented - Psychiatric Reports system reviewed and no additional complaints, except as documented - Endocrine Reports no additional endocrine complaints - Hematologic/Lymphatic Reports system reviewed and no additional complaints, except as documented - Allergic/Immunologic Reports system reviewed and no additional complaints, except as documented Oncology Screenings - ECOG Performance Status ECOG Performance Status: 0 [facility] Medical History: Medical History (Last Reviewed 01/24/21 @ 13:32 by Girma Weber) Elevated liver enzymes Essential hypertension GERD (gastroesophageal reflux disease) Impaired fasting glucose Prostate cancer Right bundle branch block Thrombocytopenia Functional capacity: independent ambulation Patient : No Family History: Family History (Last Reviewed 01/24/21 @ 13:32 by Girma Weber) Father Diabetes mellitus Mother Alcoholic Brother Cancer of prostate Brother No problems noted. Sister No problems noted. Surgical History: Surgical History (Last Reviewed 01/24/21 @ 13:32 by Girma Weber) History of hernia repair History of prostatectomy Social History: Social History (Last Reviewed 01/24/21 @ 13:32 by Girma Weber) Living Situation History: Housing: House Alcohol History: Alcohol intake: never Tobacco History: Patient Tobacco Use Status: Never used Tobacco e-Cigarette/Vaping Use: Never Used Second Hand Smoke Exposure: No Nutrition Assessment: Patient : No Occupation Assessmet: Current occupational status: retired Home Medications and Allergies Home Medications Medication Instructions Recorded Confirmed Type aspirin 81 mg tablet,delayed 81 mg PO DAILY 05/16/20 01/24/21 History release (Adult Aspirin Regimen) flu vacc 2019-(65yr See Rx Instructions .ROUTE .COMPLEX 05/16/20 01/24/21 History up)-MF59C(PF) 60 mcg(15 mcgx4)/0.5 mL IM syringe multivitamin 1 tab PO DAILY 05/16/20 01/24/21 History Allergies Allergy/AdvReac Type Severity Reaction Status Date / Time No Known Allergies Allergy Verified 01/14/21 11:31 [No Known Allergies*] Physical Exam - Constitutional Present: no acute distress - Routine HEENT Exam Head: Present: normal inspection ENT: Present: mucous membranes moist - Routine Neck Exam Present: supple - Routine Respiratory Exam Present: CTAB - Routine Cardiovascular Exam Cardiovascular: Present: RRR, S1, S2 - Routine Abdominal Exam Present: nontender - Routine Rectal Exam Patient deferred: digital exam - Routine Exam Groin: Absent: inguinal lymphadenopathy - Routine Extremities Exam Absent: clubbing Hem/Onc Consult Result - Labs CBC & Chem 7: 01/24/21 14:00 01/24/21 14:00 Assessment and Plan Patient Active problem list reviewed?: Yes (1) Thrombocytopenia Status: Acute Assessment and plan: 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 Other possibilities include: 2) Drug-induced thrombocytopenia or 3) Viral infection although he is not on any medication that could be responsible. He has not had any recent viral syndrome or chronic infections like hepatitis C or HIV. 4) Other possibility is that of a collagen vascular disorder. He does not have any systemic symptoms to suggest that; however, we will check his collagen vascular profile. 5) A myeloinfiltrative disorder, multiple myeloma or myelodysplastic syndrome are in the differential and we will check an SIEP. 6) B2 and folate deficiencies can sometimes also cause thrombocytopenia, but that should be associated with anemia, which he does not have. He has no easy bruising nor systemic symptoms. His platelet count is up at 149. Likely beneficial effect of steroids. PLAN: At this point, he is clinically doing very well and his platelet count is holding stable so the plan is to follow him along over time to follow the trend of the platelet count. If the platelets fall below 50, then we will proceed with a bone marrow exam for further evaluation. In the meantime, I will look for his previous bone marrow results if they are available in Pathology Department. He was advised to stay away from aspirin and nonsteroidal. If he has ITP, then he can be a candidate for steroid therapy. Other alternatives would be Rituxan or splenectomy; however, if his platelets stay above 100,000, he would not need any of that, just a followup. He will return in 6 months for a follow up visit. Thank you, CC: Dr. Meyer. - Time Spent With Patient Time Spent with Patient (in minutes): 35
[2021-01-24 13:31] VITALS: BP 178/81; PULSE 50; RESP 16; TEMP 36; O2SAT 96; BMI 34.3
[2021-01-24 14:06] LABS: MANUAL DIFF FLAG NO
[2021-01-24 14:11] LABS: Basophils Absolute Auto 0.1 X10*3/uL (0.0-0.2); Basophils Percent Auto 0.8 % (0-2); Eosinophils Absolute Auto 0.2 X10*3/uL (0.0-0.4); Eosinophils Percent Auto 2.9 % (0-4); Hematocrit 44.9 % (42-52); Hemoglobin 14.9 g/dl (14.0-18.0); Imm Gran Abs Auto 0.02 X10*3/uL (0.00-0.03); Imm Gran Pct Auto 0.3 % (0.0-0.4); Lymphocytes Absolute Auto 3.2 X10*3/uL (1.2-4.9); Lymphocytes Percent Auto 40.2 % (20-40); Mean Corpuscular HGB Conc 33.2 g/dl (31.0-36.0); Mean Corpuscular Hemoglobin 31.8 pg (27.0-33.0); Mean Corpuscular Volume 95.9 fL (80-98); Mean Platelet Volume 12.2 fL (9.4-12.4); Monocytes Absolute Auto 0.8 X10*3/uL (0.1-1.2); Monocytes Percent Auto 10.1 % (2-11); Neutrophils Absolute Auto 3.6 X10*3/uL (2.0-8.3); Neutrophils Percent Auto 45.7 % (45-73); Platelet Count 149 X10*3/uL (160-400); Red Blood Count 4.68 X10*6/uL (4.60-5.80); Red Cell Distribution Width 13.5 % (11.0-16.0); White Blood Count 7.9 X10*3/uL (4.8-10.8)
[2021-01-24 14:39] LABS: Alanine Aminotransferase 125 U/L (0-40); Albumin Level 3.9 g/dL (3.5-5.0); Alkaline Phosphatase 95 U/L (39-117); Anion Gap 11 (12-20); Aspartate Amino Transferase 72 U/L (5-37); Blood Urea Nitrogen 19 mg/dL (9-16); Calcium 9.1 mg/dL (8.4-10.2); Carbon Dioxide 30 mmol/L (22-29); Chloride 105 mmol/L (96-108); Creatinine Clr Calc Pharmacy 102.4; Estimated Glomerular Filt Rate > 60; Glucose Random 100 mg/dL (60-115); Lactate Dehydrogenase 230 U/L (118-273); Potassium 4.8 mmol/L (3.3-5.1); Sodium 141 mmol/L (135-145); Total Protein 6.6 g/dL (6.5-8.0)
[2021-01-24 14:47] LABS: Erythrocyte Sedimentation Rate 3 MM/HR (0-15)
--- NOTE | 2021-01-24 16:35 | MHC.HEMONCMA ---
Pt came in for hem consult and states he is doing well. clinical summary was updated and labs were drawn. pt will reach out if follow up is needed.
[2021-01-25 07:51] LABS: HIV AB/AG Nonreactive (Nonreactive); HIV Num 1 0.05 S/CO (0.00-0.99)
[2021-01-26 18:42] LABS: IgA 178 mg/dL (70-320); IgG 1065 mg/dL (600-1540); IgM 97 mg/dL (50-300)
== END | disposition home or self-care (01) ==
LOC: HO.ONC 01-24 13:09
PROVIDERS: PCP Internal Medicine; Referring Provider Internal Medicine; Visit Provider Internal Medicine Medical Oncology
DX: D69.6 Thrombocytopenia, unspecified (principal)
CPT/HCPCS: 36415; 80053; 82784; 83615; 85025; 85652; 86334; 87389; 99204

== ENCOUNTER 2024-04-20 10:56 | Outpatient (AMB) | payer MEDICARE, SELFPAY ==
[2024-04-20 11:16] VITALS: BP 136/72; PULSE 41; O2SAT 97; BMI 33.9
--- NOTE | 2024-04-20 11:16 | A.OFFPC_ITS ---
Vital Signs 04/20/24 11:16 Height 6 ft Weight 250 lb BMI 33.9 BP 136/72 Blood Pressure Location Rt brachial Position Sitting Pulse 41 L Pulse Source Pulse Oximeter Pulse Oximetry (%) 97 Oxygen Delivery Method Room Air Intake Visit Reasons: Annual PE Intake Note: Pt is here today for his PE: Last colonoscopy 11/04/15 Allergies No Known Allergies [No Known Allergies*] Allergy (Verified 04/20/24 11:27) Medication List - Last Reconciled 04/20/24 by Deborah Meyer MD aspirin (Adult Aspirin Regimen) 81 mg PO DAILY hydrochlorothiazide 50 mg PO Q OTHER DAY lisinopril 20 mg PO DAILY 90 days meclizine 25 mg PO TID PRN multivitamin 1 tab PO DAILY omeprazole 20 mg PO DAILY Tobacco use date assessed: 04/20/24 Fall risk assessment: No Falls in past year Last assessed Fall Risk: 04/20/24 Dental Screening Dental Screen Date: 04/20/24 Did you have a dental visit in the last 12 months?: Yes Did you have a dental problem in the last 6 months where you did not have access to dental care?: No Was dental information given to patient?: Patient has dentist HPI Annual PE HPI Details The patient is a 78-year-old male , presenting today for his physical examination . He has recurrent bladder cancer, treated with a six-week regimen involving intravesical administration of an immunotherapeutic agent. The treatment requires two-hour retention sessions post-administration, and to date, the patient has completed four out of six total sessions, showing minimal adverse effects beyond transient hematuria following the initial treatments. The follow-up cystoscopy is scheduled post-treatment completion to determine ef ficacy. Has been diagnosed to have Meniere's Disease, managed with meclizine, has Essential Hypertension with noted recent elevation, gastroesophageal reflux disease managed with daily omeprazole, and thrombocytopenia. The patient has a history of prostate cancer s/p prostatectomy done by Dr Trammell in 2002 with favorable outcomes under consistent surveillance. During exam , he was noted to have a 5-pound weight gain, elevated blood pressure, and persistently low heart rate, consistent with baseline measurements over the last 12 years; however, the patient denies any associated dizziness, shortness of breath, or weakness at present. He has been feeling well, currently without any complaints of chest pain, no abdominal pain, no back pain, urinary urgency or hematuria . He has chronic thrombocytopenia, likely ITP, asymptomatic for which he has never required any therapy, seen by Hematology. Denies any B symptoms HIs last colonoscopy was done by Dr Parkinson at [facility] in 2015, repeat due again in 2025 [facility] Medical History (Updated 04/20/24 @ 11:55 by Deborah Meyer MD) Hx of bladder cancer Neoplasm of bladder History of prostate cancer Meniere disease Thrombocytopenia Elevated liver enzymes Prostate cancer Impaired fasting glucose Right bundle branch block GERD (gastroesophageal reflux disease) Essential hypertension Surgical History History of hernia repair History of prostatectomy Family History Father Diabetes mellitus Mother Alcoholic Brother Cancer of prostate Brother No problems noted. Sister No problems noted. Social History Household Members: Spouse Housing: House Alcohol intake: never Patient Tobacco Use Status: Never used Tobacco e-Cigarette/Vaping Use: Never Used Second Hand Smoke Exposure: No service: Yes Current occupational status: retired Cognitive needs: No Hearing needs: Yes Vision needs: Yes Questionnaire PHQ-9 Over the last 2 weeks, how often have you been bothered by any of the following problems? 1. Little interest or pleasure in doing things: not at all 2. Feeling down, depressed, or hopeless: not at all 3. Trouble falling or staying asleep, or sleeping too much: not at all 4. Feeling tired or having little energy: not at all 5. Poor appetite or overeating: not at all 6. Feeling bad about yourself - or that you are a failure or have let yourself or your family down: not at all 7. Trouble concentrating on things, such as reading the newspaper or watching television: not at all 8. Moving or speaking so slowly that other people could have noticed. Or the opposite - being so fidgety or restless that you have been moving around a lot more than usual: not at all 9. Thoughts that you would be better off or of hurting yourself in some way: not at all Total score: 0 Depression Screening Interpretation: Negative Depression Screening Done: Yes 74293 - PHQ-9 Billing: Yes Source: Developed by Drs. Brien Jacinto, Raiza Willams, Neil Pastor and colleagues, with an educational erin from [employer]. Thrive Questionnaire Date Thrive assessed: 04/20/24 I am a: Patient What is your living situation today?: I have a steady place to live Within the past 12 months, did the food you bought not last and you didn't have the money to get more?: Never true Within the past 12 months, did you worry whether your food would run out before you got money to buy more?: Never true Do you have trouble paying for medicines?: I choose not to answer this question Do you have trouble getting transportation to medical appointments?: No Do you have trouble paying your heating and electricity bill?: I choose not to answer this question Do you have trouble taking care of your child, family member or friend?: No Do you have trouble with day-to-day activities such as bathing, preparing meals, shopping, managing finances, etc.?: No Are you currently unemployed and looking for a job?: No Are you interested in more education?: No Please select the resources that you would like help with: None Currently or been in a relationship where the following occur: No concerns reported THRIVE Score: 0 AUDIT C Alcohol Use Questionnaire (AUDIT-C) 1. How often do you have a drink containing alcohol?: Monthly or less 2. How many drinks containing alcohol do you have on a typical day when you are drinking?: 1 or 2 3. How often do you have six or more drinks on one occasion?: Never Total Score: 1 RANULFO-7 AMB Questionnaire RANULFO-7 Date RANULFO - 7 assessed: 04/20/24 Feeling nervous, anxious, or on edge: 0 = Not at all Not being able to stop or control worryin = Not at all Worrying too much about different things: 0 = Not at all Trouble relaxin = Not at all Being so restless that it is hard to sit still: 0 = Not at all Becoming easily annoyed or irritable: 0 = Not at all Feeling afraid as if something awful might happen: 0 = Not at all Total RANULFO-7 score (0-4 normal; 5-9 mild; 10-14 moderate; 15-21 severe): 0 Source: Developed by Drs. Brien Jacinto, Raiza Willams, Neil Pastor and colleagues, with an educational erin from [employer]. RANULFO-7 Assessment Billing RANULFO-7 Assessment Tool: RANULFO-7 Assessment 06702 Review of Systems Const Denies body aches, Denies fatigue, Denies fever(s), Denies headache(s) and Denies weakness Eyes Denies change in vision ENT Denies dizziness, Denies headache(s), Denies nasal congestion, Denies nasal discharge and Denies sore throat Card Denies chest pain, Denies lightheadedness, Denies palpitations and Denies dyspnea Resp Denies chest congestion, Denies cough, Denies dyspnea and Denies wheezing GI Denies abdominal pain, Denies melena, Denies hematochezia, Denies change in bowel habits and Denies heartburn Denies hematuria, Denies oliguria, Denies difficulty urinating, Denies dysuria, Denies urinary frequency and Denies urinary urgency Musc Reports no additional complaints Skin/Breast Denies lesions and Denies rash Neuro Denies dizziness, Denies headache(s) and Denies weakness Psych Reports no additional complaints Endo Denies fatigue, Denies polydipsia, Denies polyuria and Denies palpitations Yao/Lymph Denies easy bleeding and Denies easy bruising Aller/Immun Denies seasonal rhinorrhea and Denies wheezing Physical exam (Primary Care) Vital Signs: Last Vital Signs Pulse 41 L 04/20/24 11:16 BP 136/72 04/20/24 11:16 Pulse Ox 97 04/20/24 11:16 Oxygen Delivery Method Room Air 04/20/24 11:16 BMI result Body Mass Index 33.9 Tobacco/Smoking Status: Tobacco use Status Tobacco use date assessed 04/20/24 04/20/24 11:20 Patient Tobacco Use Status Never used Tobacco 04/20/24 11:20 e-Cigarette/Vaping Use Never Used 04/20/24 11:20 PHQ-9: PHQ-9 Score PHQ-9: Total score 0 04/20/24 11:44 Depression Screening Interpretation: Negative Thrive Assessment: Date of Thrive Assessment Date Thrive assessed 04/20/24 04/20/24 11:25 Currently or been in a relationship where the following occur: No concerns reported Const General: cooperative, comfortable and no acute distress Orientation/consciousness: patient oriented x3 HENMT Ears: external ears normal General nose exam: Normal external nose present Mouth: Normal oral and palatal mucosa present, oropharynx normal and moist muc ous membranes Throat: Yes posterior oropharynx normal Eyes General: appearance normal, both eyes and all related structures Conjunctivae: conjunctivae normal Pupils: Equal, round and reactive pupils present EOM: EOMs intact bilaterally Neck Neck: Yes full ROM, Yes no lymphadenopathy and Yes supple Chest Chest palpation & inspection: normal inspection of the chest Resp Effort & Inspection: normal respiratory effort and able to speak in complete sentences Auscultation: clear to auscultation bilaterally Cardio Rate: bradycardic Rhythm: regular rhythm Heart sounds: S1 normal heart sound present and S2 normal heart sound present GI Inspection: Yes normal to inspection Palpation (GI): Soft to palpation, nontender and no masses Auscultation: normal bowel sounds General: Yes Bimanual renal exam normal bilaterally and Yes no CVA tenderness Back/Spine/Pelvis Back: no CVA tenderness Skin General skin exam: no rashes or lesions noted Neuro General: patient oriented x3 Cranial nerves: Yes Equal, round and reactive pupils present Extrem General: Yes full ROM, Yes no joint enlargement, Yes no pedal edema and Yes normal gait Psych Appearance: grossly normal and well kempt Speech and movement: Normal speech and movement present Affect: normal affect Coding Level of Care Code Est Pt Prev Care >65y(55560) Diagnoses Annual visit for general adult medical examination with abnormal findings Z00. History of prostate cancer Z85.46 Hx of bladder cancer Z85.51 Meniere's disease of both ears H81.03 Laterality: bilateral Thrombocytopenia D69.6 Impaired fasting glucose R73.01 GERD (gastroesophageal reflux disease) K21.9 Essential hypertension I10 Additional Codes RANULFO-7 Assessment Billing - RANULFO-7 Assessment Tool: RANULFO-7 Assessment 19687 ([id number]) PHQ-9 - 06165 - PHQ-9 Billing: Yes ([id number]) Assessment & Plan Assessment & Plan (1) Annual visit for general adult medical examination with abnormal findings: Code(s): Z00.01 - Encounter for general adult medical examination with abnormal findings (2) History of prostate cancer: Code(s): Z85.46 - Personal history of malignant neoplasm of prostate Category: Medical (3) Hx of bladder cancer: Code(s): Z85.51 - Personal history of malignant neoplasm of bladder Category: Medical (4) Meniere disease: Comment: sees Dr Harvey , placed on meclizine and HCTZ Code(s): H81.09 - Meniere's disease, unspecified ear Category: Medical Qualifiers: Laterality: bilateral Qualified Code(s): H81.03 - Meniere's disease, bilateral (5) Thrombocytopenia: Comment: Seen and evaluated by Hematology in 2017, currently asymptomatic, with platelet count stable Code(s): D69.6 - Thrombocytopenia, unspecified Category: Medical (6) Impaired fasting glucose: Code(s): R73.01 - Impaired fasting glucose Category: Medical (7) GERD (gastroesophageal reflux disease): Code(s): K21.9 - Gastro-esophageal reflux disease without esophagitis Category: Medical (8) Essential hypertension: Code(s): I10 - Essential (primary) hypertension Category: Medical Plan - Recurrent Bladder Cancer: Continue with the current immunotherapeutic regimen and reassess post-treatment with cystoscopy, followed by Urology.. - Thrombocytopenia: Monitor platelet levels, especially concerning potential dental procedures, to evaluate bleeding risk. - Meniere's Disease: Continue meclizine therapy and follow-up with Dr. Harvey as scheduled. - Hypertension: Monitor blood pressure closely, no immediate medication changes discussed. - Gastroesophageal Reflux Disease: Continue omeprazole therapy daily. - Periodontal Disease: Recommended obtaining a second opinion regarding deep cleaning proposal, due to low platelet counts . - Obesity: Encourage lifestyle modification post-discussion of weight status. - General Health Maintenance: fasting lab ordered, schedule updated shingles vaccination post-cancer treatment, and maintain periodic screenings and vaccinations as per guidelines. Patient was informed and verbally consented to the use of an ambient scribe for clinic note documentation during this visit.
== END 2024-04-20 11:56 | disposition home or self-care (01) ==
PROVIDERS: PCP Internal Medicine; Visit Provider Internal Medicine
DX: Z00.00 Encounter for general adult medical examination without abnormal findings (principal); D69.6 Thrombocytopenia, unspecified; Z85.46 Personal history of malignant neoplasm of prostate; Z85.51 Personal history of malignant neoplasm of bladder; H81.03 Meniere's disease, bilateral; R73.01 Impaired fasting glucose; K21.9 Gastro-esophageal reflux disease without esophagitis; I10 Essential (primary) hypertension

== ENCOUNTER → 2024-04-20 10:56 | Outpatient (BNVA) | payer MEDICARE, SELFPAY | PROVIDERS: PCP Internal Medicine; Visit Provider Internal Medicine | DX: Z00.01 Encounter for general adult medical examination with abnormal findings (principal); H81.03 Meniere's disease, bilateral; D69.6 Thrombocytopenia, unspecified; R73.01 Impaired fasting glucose; K21.9 Gastro-esophageal reflux disease without esophagitis; I10 Essential (primary) hypertension; Z85.51 Personal history of malignant neoplasm of bladder; Z85.46 Personal history of malignant neoplasm of prostate | CPT/HCPCS: 96127; 99397 ==

== ENCOUNTER 2024-04-24 11:28 | Outpatient (REF) | payer MEDICARE, SELFPAY ==
[2024-04-24 13:11] LABS: MANUAL DIFF FLAG NO
[2024-04-24 13:19] LABS: Basophils Percent Auto 0.7 % (0-2); Eosinophils Absolute Auto 0.2 X10*3/uL (0.0-0.4); Eosinophils Percent Auto 3.5 % (0-4); Hematocrit 39.9 % (42.0-52.0); Hemoglobin 13.4 g/dl (14.0-18.0); Imm Gran Abs Auto 0.01 X10*3/uL (0.00-0.03); Imm Gran Pct Auto 0.2 % (0.0-0.4); Lymphocytes Absolute Auto 2.2 X10*3/uL (1.2-4.9); Lymphocytes Percent Auto 40.4 % (20-40); Mean Corpuscular HGB Conc 33.6 g/dl (31.0-36.0); Mean Corpuscular Hemoglobin 31.5 pg (27.0-33.0); Mean Corpuscular Volume 93.9 fL (80.0-98.0); Mean Platelet Volume 12.5 fL (9.4-12.4); Monocytes Absolute Auto 0.6 X10*3/uL (0.1-1.2); Monocytes Percent Auto 10.1 % (2-11); Neutrophils Absolute Auto 2.5 x10*3/uL (2.0-8.3); Neutrophils Percent Auto 45.1 % (45-73); Platelet Count 111 X10*3/uL (160-400); Red Blood Count 4.25 X10*6/uL (4.60-5.80); Red Cell Distribution Width 13.1 % (11.0-16.0); White Blood Count 5.5 X10*3/uL (4.8-10.8)
[2024-04-24 13:50] LABS: Alanine Aminotransferase 58 U/L (0-40); Anion Gap 11 (12-20); Aspartate Amino Transferase 55 U/L (5-37); Blood Urea Nitrogen 21 mg/dL (9-16); Calcium 9.2 mg/dL (8.4-10.2); Carbon Dioxide 28 mmol/L (22-29); Chloride 108 mmol/L (96-108); Cholesterol 181 mg/dL (<200); Estimated Glomerular Filt Rate > 60; Glucose Fasting 119 mg/dL (60-99); HDL Cholesterol 46 mg/dL (>40); LDL Cholesterol Calculated 114 mg/dL (<100); Potassium 4.3 mmol/L (3.3-5.1); Sodium 143 mmol/L (135-145); Triglycerides 106 mg/dL (<150); Vitamin D 25-OH Total 52.3 ng/mL (>30)
== END 2024-04-24 11:29 | disposition home or self-care (01) ==
LOC: HO.HMGCLDS 11:28
PROVIDERS: PCP Internal Medicine; Visit Provider Internal Medicine
DX: D69.6 Thrombocytopenia, unspecified (principal); R73.01 Impaired fasting glucose; I10 Essential (primary) hypertension
CPT/HCPCS: 36415; 80048; 80061; 82306; 84450; 84460; 85025

== ENCOUNTER 2024-05-19 09:35 | Outpatient (AMB) | payer MEDICARE, SELFPAY ==
--- NOTE | 2024-05-19 09:52 | MHC.OFFWIV ---
Intake Vital Signs 05/19/24 10:00 Height 6 ft Weight 242 lb BMI 32.8 BP 108/60 Blood Pressure Location Rt brachial Position Sitting Pulse 51 Pulse Source Pulse Oximeter Temp 97.8 F Temp Source Oral Pulse Oximetry (%) 96 Oxygen Delivery Method Room Air Intake Visit Reasons: EP vomiting, diarreah, coughing, sinus Intake Note: Patient here for cough, fatigue, sinus pressure, chills and vomiting that has been present since . Patient Tobacco Use Status: Never used Tobacco Allergies No Known Allergies [No Known Allergies*] Allergy (Verified 05/19/24 10:01) Do you need a note to return to daycare/school/sports/work: No HPI HPI Comments History of Present Illness Details History - The patient is a 79-year-old male presenting with acute respiratory and gastrointestinal symptoms. - Symptoms began more than a week before present, initially perceived as sinus congestion and sore throat. His symptoms worsened after exposure to cold weather during travel. - Manifestations evolved into severe vomiting and diarrhea by the following Saturday evening, requiring intensive cleaning efforts. - Reports subjective chills and a requirement for additional clothing layers in a controlled home environment, notably over a weekend period. - Vomiting ceased 3 days ago, with gradual dietary reintroduction evident by yesterday involving chicken soup. - No fever was objectively measured; however, intense febrile sensations and thermal discomfort were noted. - Patient has a history of bladder cancer under recent treatment with immunotherapy, with pending cystoscopy in May for assessment. - denies bloody or black in diarrhea or vomitus. - Reports audible wheezing perceived externally. - Utilizes Tylenol for symptomatic relief but reports no known drug allergies. Physical Exam General: Cooperative, healthy appearing, comfortable and no acute distress Orientation/consciousness: Patient oriented x3 Limitations: No limitations Head: Normal to inspection Ears: Hearing grossly normal bilaterally, external ears normal and TM's normal bilaterally Nose: Normal external nose present, Normal nares present and No nasal discharge present Face and sinus: Normal facial exam and Yes sinuses nontender Mouth: Normal oral and palatal mucosa present and moist mucous membranes Throat: Yes tonsils normal, Yes uvula midline. Posterior oropharynx erythema Eyes: Appearance normal, both eyes and all related structures Neck: Normal visual inspection Respiratory: Clear to auscultation bilaterally. Normal respiratory effort, able to speak in complete sentences, Actively coughing, no respiratory distress, not tachypneic, no tripod positioning and no use of accessory muscles Cardiovascular: Regular rate and rhythm. Normal S1 and S2 Skin: No rashes or lesions noted Neuro: Patient oriented x3 Extremities: Normal to inspection and Yes no clubbing, cyanosis or edema [facility] Medical History (Updated 05/19/24 @ 10:06 by Shirley Irby PA-C) Hx of bladder cancer Neoplasm of bladder History of prostate cancer Meniere disease Thrombocytopenia Elevated liver enzymes Prostate cancer Impaired fasting glucose Right bundle branch block GERD (gastroesophageal reflux disease) Essential hypertension Surgical History History of hernia repair History of prostatectomy Family History Father Diabetes mellitus Mother Alcoholic Brother Cancer of prostate Brother No problems noted. Sister No problems noted. Social History Household Members: Spouse Housing: House Alcohol intake: never Patient Tobacco Use Status: Never used Tobacco e-Cigarette/Vaping Use: Never Used Second Hand Smoke Exposure: No service: Yes Current occupational status: retired Cognitive needs: No Hearing needs: Yes Vision needs: Yes Review of Systems Const All systems reviewed & are unremarkable except as noted in HPI and below Physical Exam Vital Signs: Last Vital Signs Temp 97.8 F 05/19/24 10:00 Pulse 51 05/19/24 10:00 BP 108/60 05/19/24 10:00 Pulse Ox 96 05/19/24 10:00 Oxygen Delivery Method Room Air 05/19/24 10:00 Assessment & Plan Assessment & Plan (1) Viral illness: Code(s): B34.9 - Viral infection, unspecified Plan: VSS, baseline bradycardic, PE unremarkable. The plan is to manage the presenting symptoms conservatively with supportive care targeting the suspected viral etiology. This includes promoting hydration with water and oral rehydration solutions, use of acetaminophen to manage fever and discomfort, and monitoring of heart rate to guard against dehydration. Recommended BRAT diet. Testing for influenza, RSV, and COVID-19 is done to confirm the diagnosis. Given the onset of symptoms exceeds the period in which oseltamivir would be effective, its prescription is not indicated at this time. Should symptoms persist with potential bacterial involvement, a backup plan for antibiotic intervention, specifically azithromycin, will be considered. Attention to the patient's background of bladder cancer, recently managed with immunotherapy, is noted, with recommendations for follow-up care with their primary care physician and urologist. The avoidance of unwarranted antibiotic use is stressed to minimize the risk of gastrointestinal side effects unless necessary based on clinical assessments. Patient was informed and verbally consented to the use of an ambient scribe for clinic note documentation during this visit Orders: Orders SARS-CoV2/FLU/RSV Today B34.9 - Viral infection, unspecified Coding Level of Care Code Est Pt Level 4 (63233) Diagnoses Viral illness B34.9
[2024-05-19 10:00] VITALS: BP 108/60; PULSE 51; TEMP 36.6; O2SAT 96; BMI 32.8
== END 2024-05-19 10:22 | disposition home or self-care (01) ==
PROVIDERS: PCP Internal Medicine; Visit Provider Physician Assistant
DX: B34.9 Viral infection, unspecified (principal)

== ENCOUNTER 2024-05-19 09:35 | Outpatient (REF) | payer MEDICARE, SELFPAY ==
[2024-05-19 15:23] LABS: Influenza A PCR NEGATIVE (Negative); Influenza B PCR NEGATIVE (Negative); Resp Syncy Virus RNA Qual PCR NEGATIVE (Negative); SARS COV2 PCR INHOUSE NEGATIVE (Negative)
== END 2024-05-19 09:36 | disposition home or self-care (01) ==
LOC: HO.LAB 09:35
PROVIDERS: PCP Internal Medicine; Visit Provider Physician Assistant
DX: B34.9 Viral infection, unspecified (principal); R05.9 Cough, unspecified
CPT/HCPCS: 0241U; 99212

== ENCOUNTER 2024-09-20 20:13 | Emergency (ER) | payer MEDICARE, SELFPAY ==
--- NOTE | ~2024-09-20 | XR_ITS ---
CLINICAL HISTORY: pain 5 view right knee Comparison: None Findings: No fractures or dislocations. Tricompartmental osteoarthritis. Moderate joint effusion. No radiopaque foreign body. IMPRESSION: No acute fracture. Moderate joint effusion. This document has been electronically signed by: John Jacobo MD on 09/20/2024 21:48:59
--- NOTE | ~2024-09-20 | US_ITS ---
CLINICAL HISTORY: pain Venous duplex ultrasound right lower extremity Comparison: None Findings: The visualized deep veins are fully compressible with normal Doppler color flow and spectral tracings. No popliteal cyst. IMPRESSION: 1. Negative for right lower extremity deep vein thrombosis. This document has been electronically signed by: John Jacobo MD on 09/20/2024 22:29:44
[2024-09-20 20:51] VITALS: BP 140/49; PULSE 42; RESP 20; TEMP 36.4; O2SAT 96; BMI 34.9
--- NOTE | 2024-09-20 20:58 | ED_ITS ---
HPI - Extremity Injury (Lower) General Chief Complaint: Extremity Injury, Lower Stated Complaint: rt leg pain/swollen Time Seen by Provider: 09/20/24 21:36 Source: patient Mode of arrival: ambulatory Limitations: no limitations History of Present Illness ED Provider: Mary Lamas NP HPI Narrative: Patient is a 79-year-old male who presents emergency department for evaluation. He reports that he had a normal day today, was walking around and assuring at muslim. He states that he was relaxing in the recliner chair, took an in, and when he went to get up he noticed he was having pain in his right leg particularly his knee and when he looked he noticed that there was swelling. He denies any known injury. Denies any redness. Denies recent fevers, chills, chest pain, or shortness of breath. Related Data Home Medications ?Medication ?Instructions ?Recorded ?Confirmed aspirin 81 mg tablet,delayed 81 mg PO DAILY 05/16/20 07/02/22 release (Adult Aspirin Regimen) multivitamin 1 tab PO DAILY 05/16/20 07/02/22 hydrochlorothiazide 50 mg tablet 50 mg PO Q OTHER DAY 03/27/21 07/02/22 Previous Rx's ?Medication ?Instructions ?Recorded meclizine 25 mg tablet 25 mg PO TID PRN dizziness #20 tabs 02/12/21 azithromycin 250 mg tablet See Rx Instructions PO .COMPLEX #6 05/19/24 tabs omeprazole 20 mg capsule,delayed 20 mg PO DAILY #90 caps 07/27/24 release lisinopril 20 mg tablet 20 mg PO DAILY 90 days #90 tabs 08/24/24 Allergies Allergy/AdvReac Type Severity Reaction Status Date / Time No Known Allergies Allergy Verified 09/20/24 20:58 [No Known Allergies*] Review of Systems 2 Review of Systems: Yes all other systems are reviewed and are negative PMFSH Past Medical History Attestation statement: The following information was validated with the patient. Source: old records reviewed Medical History Hx of bladder cancer Neoplasm of bladder History of prostate cancer Meniere disease Thrombocytopenia Elevated liver enzymes Prostate cancer Impaired fasting glucose Right bundle branch block GERD (gastroesophageal reflux disease) Essential hypertension Surgical History History of hernia repair History of prostatectomy Family History Family History Father Diabetes mellitus Mother Alcoholic Brother Cancer of prostate Brother No problems noted. Sister No problems noted. Social History Social History Household Members: Spouse Housing: House Alcohol intake: never Patient Tobacco Use Status: Never used Tobacco Smoked in Last 30 Days: No e-Cigarette/Vaping Use: Never Used Second Hand Smoke Exposure: No Use of substances other than those prescribed or required for medical reasons: No Advance Directives: Yes Advance Directives on File: Yes Advance Directives Date on File: 07/02/22 Do you have a plan to hurt others: No Plan service: Yes Current occupational status: retired Cognitive needs: No Hearing needs: Yes Vision needs: Yes Physical Exam 2 Vital Signs: Vital Signs: Last Vital Signs Temp 98.6 F 09/20/24 22:36 Pulse 50 09/20/24 22:36 Resp 18 09/20/24 22:36 BP 114/63 09/20/24 22:36 Pulse Ox 100 09/20/24 22:36 O2 Del Method Room Air 09/20/24 22:36 BMI result Body Mass Index 34.9 Appearance: Alert.?Oriented to person, place and time. No acute distress.?Normal affect.? CVS: Heart sounds normal. Normal heart rate and rhythm.? Pulses normal.?? Respiratory: No respiratory distress.? Lung sounds clear to auscultation bilaterally?? Skin: Skin warm and dry.? Normal skin color.? Extremities: Bilateral lower extremity nonpitting edema. 2+ DP/PT pulse bilaterally. Right knee with obvious effusion no erythema or warmth, decreased AROM. No tenderness upon palpation. No obvious deformity. Neuro: Moves all extremities spontaneously. Sensation intact bilaterally. Ambulates with antalgia gait. Course Course Course Narrative: This is an RME: Additional HPI, ROS, PE not included below will be deferred to primary provider. RME assessment and note performed by: Flores Peace PA-C This is a 79-year-old male, with a history of bladder cancer on immunotherapy, who presents emergency department with concerns for right knee swelling and leg swelling for the last day. Patient reports that he fell asleep in a recliner, and went to get up and noticed increased pain and swelling in his right leg, unable to bear weight on his right leg. Right knee with moderate edema noted, no calf tenderness. 1+ pitting edema noted. No chest pain or shortness for breath. Plan: Basic labs, x-ray, ultrasound, further ER evaluation needed. Medical Decision Making Medical Decision Making MDM Narrative: Patient is a 79-year-old male past medical history of bladder cancer on immunotherapy, prostate cancer, impaired fasting glucose, hypertension, GERD presenting for evaluation of right knee pain and swelling as per HPI. Overall he is well-appearing, nontoxic, afebrile, no tachypnea or hypoxia, no respiratory distress. He does arrive bradycardic but upon review of medical records this does not appear to be a new finding for him. He has no dizziness or lightheadedness no associated chest pain. Bilateral lower extremities are neurovascularly intact distally. He has a obvious effusion to the left knee without erythema or warmth, afebrile no tachycardia, I have a lower suspicion for septic joint. He does not recall any overt injury however he did do a lot of walking today. 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 On evaluation serum labs he has a leukocytosis, has a mild normocytic anemia that does not meet transfusion criteria, mild thrombocytopenia. No electrolyte derangement. No VITOR. X-ray of the knee does not show evidence of fracture dislocation, there is however arthritic changes and a moderate effusion. Venous duplex ultrasound does not show evidence of DVT. I reviewed elastic bandage for compression, elevation, ice, strict return precautions, otherwise outpatient follow-up with PCP, provided with crutches. All questions answered Differential Diagnosis Differential Diagnoses: The differential diagnosis associated with the presentation includes (See narrative above) Lab Data [facility] Lab Attestation statement: I reviewed the patient's lab results. (See narrative) 09/20/24 21:14 09/20/24 21:14 Labs: Lab Results 09/20/24 Range/Units 21:14 WBC 6.2 (4.8-10.8) X10*3/uL RBC 4.19 L (4.60-5.80) X10*6/uL Hgb 13.3 L (14.0-18.0) g/dl Hct 39.3 L (42.0-52.0) % MCV 93.8 (80.0-98.0) fL MCH 31.7 (27.0-33.0) pg MCHC 33.8 (31.0-36.0) g/dl RDW 13.1 (11.0-16.0) % Plt Count 117 L (160-400) X10*3/uL MPV 12.1 (9.4-12.4) fL Immature Gran % (Auto) 0.2 (0.0-0.4) % Neut % (Auto) 50.5 (45-73) % Lymph % (Auto) 37.2 (20-40) % Loíza % (Auto) 9.7 (2-11) % Eos % (Auto) 1.9 (0-4) % Baso % (Auto) 0.5 (0-2) % Lymph # (Auto) 2.3 (1.2-4.9) X10*3/uL Loíza # (Auto) 0.6 (0.1-1.2) X10*3/uL Eos # (Auto) 0.1 (0.0-0.4) X10*3/uL Baso # (Auto) 0.0 (0.0-0.2) X10*3/uL Abs Immat Gran (auto) 0.01 (0.00-0.03) X10*3/uL Absolute Neuts (auto) 3.1 (2.0-8.3) x10*3/uL Absolute Nucleated RBC 0.000 (0.0-0.012) X10*3/uL Nucleated RBC % (auto) 0.0 (0.0-0.2) /100WBC PT 12.0 (10.9-12.4) SEC INR 1.0 (0.9-1.1) Sodium 141 (135-145) mmol/L Potassium 4.2 (3.3-5.1) mmol/L Chloride 107 (96-108) mmol/L Carbon Dioxide 24 (22-29) mmol/L Anion Gap 14 (12-20) BUN 30 H (9-16) mg/dL Creatinine 0.78 (0.5-1.4) mg/dL Estim Creat Clear Calc 101.5 Estimated GFR > 60 Random Glucose 99 (60-115) mg/dL Calcium 9.0 (8.4-10.2) mg/dL Magnesium 1.8 (1.6-2.6) mg/dL Total Bilirubin 0.6 (0.0-1.0) mg/dL Direct Bilirubin 0.2 (0.0-0.5) mg/dL AST 57 H (5-37) U/L ALT 53 H (0-40) U/L Alkaline Phosphatase 76 (39-117) U/L B-Natriuretic Peptide 101 H (<100) pg/mL Total Protein 7.0 (6.5-8.0) g/dL Albumin 4.0 (3.5-5.0) g/dL Independent Interpretation I performed an independent interpretation of an: Plain X-Ray (See narrative above) Radiology Impression Discussion of test interpretation with radiology: I have reviewed the radiologist's reading. Radiologist Impression: 5 view right knee Comparison: None Findings: No fractures or dislocations. Tricompartmental osteoarthritis. Moderate joint effusion. No radiopaque foreign body. IMPRESSION: No acute fracture. Moderate joint effusion. Venous duplex ultrasound right lower extremity Comparison: None Findings: The visualized deep veins are fully compressible with normal Doppler color flow and spectral tracings. No popliteal cyst. IMPRESSION: 1. Negative for right lower extremity deep vein thrombosis. Independent Historian Clinical information obtained from an independent historian. History obtained from or confirmed by: Spouse External Record Review External record reviewed: Outpatient record Prescription Management I considered prescription management with: Pain Medication Discharge Plan Discharge Clinical Impression: Effusion of knee joint right Patient Disposition: Home, Self-Care Instructions: Swollen Knee Joint (ED) Additional Instructions: Use elastic bandage as provided to keep compression on the right knee. Apply ice for 10-15 minutes 4-6 times daily. You may use crutches as needed to rest/take the pressure off of the knee when walking. Elevate the leg above the level of your chest. You should have prompt re-evaluation if you develop new or worsening symptoms or concerns which includes but is not limited to worsening pain, swelling, redness, numbness or tingling of the extremity, cold sensation to the leg, fevers, chills. Follow-up with your primary care doctor. Prescriptions: No Action omeprazole 20 mg capsule,delayed release(DR/EC) 20 mg PO DAILY Qty: 90 1RF lisinopril 20 mg tablet 20 mg PO DAILY 90 Days Qty: 90 1RF meclizine 25 mg tablet 25 mg PO TID PRN (Reason: dizziness) Qty: 20 0RF multivitamin Tablet 1 tab PO DAILY aspirin [Adult Aspirin Regimen] 81 mg tablet,delayed release (DR/EC) 81 mg PO DAILY hydrochlorothiazide 50 mg tablet 50 mg PO Q OTHER DAY azithromycin 250 mg tablet See Rx Instructions PO .COMPLEX Qty: 6 0RF Rx Instructions: For 250 mg dose pack: take 500 mg today (day 1), then 250 mg for 4 days (days 2-5) PO Referrals: Deborah Meyer MD [Primary Care Provider] - Print Language: Wolof
[2024-09-20 21:21] LABS: MANUAL DIFF FLAG NO
[2024-09-20 21:25] LABS: Basophils Percent Auto 0.5 % (0-2); Eosinophils Absolute Auto 0.1 X10*3/uL (0.0-0.4); Eosinophils Percent Auto 1.9 % (0-4); Hematocrit 39.3 % (42.0-52.0); Hemoglobin 13.3 g/dl (14.0-18.0); Imm Gran Abs Auto 0.01 X10*3/uL (0.00-0.03); Imm Gran Pct Auto 0.2 % (0.0-0.4); Lymphocytes Absolute Auto 2.3 X10*3/uL (1.2-4.9); Lymphocytes Percent Auto 37.2 % (20-40); Mean Corpuscular HGB Conc 33.8 g/dl (31.0-36.0); Mean Corpuscular Hemoglobin 31.7 pg (27.0-33.0); Mean Corpuscular Volume 93.8 fL (80.0-98.0); Mean Platelet Volume 12.1 fL (9.4-12.4); Monocytes Absolute Auto 0.6 X10*3/uL (0.1-1.2); Monocytes Percent Auto 9.7 % (2-11); Neutrophils Absolute Auto 3.1 x10*3/uL (2.0-8.3); Neutrophils Percent Auto 50.5 % (45-73); Platelet Count 117 X10*3/uL (160-400); Red Blood Count 4.19 X10*6/uL (4.60-5.80); Red Cell Distribution Width 13.1 % (11.0-16.0); White Blood Count 6.2 X10*3/uL (4.8-10.8)
[2024-09-20 21:38] LABS: Alanine Aminotransferase 53 U/L (0-40); Alkaline Phosphatase 76 U/L (39-117); Anion Gap 14 (12-20); Aspartate Amino Transferase 57 U/L (5-37); Bilirubin Direct 0.2 mg/dL (0.0-0.5); Bilirubin Total 0.6 mg/dL (0.0-1.0); Blood Urea Nitrogen 30 mg/dL (9-16); Carbon Dioxide 24 mmol/L (22-29); Chloride 107 mmol/L (96-108); Creatinine Clr Calc Pharmacy 101.5; Estimated Glomerular Filt Rate > 60; Glucose Random 99 mg/dL (60-115); Magnesium 1.8 mg/dL (1.6-2.6); Potassium 4.2 mmol/L (3.3-5.1); Sodium 141 mmol/L (135-145)
[2024-09-20 21:44] LABS: B Type Natriuretic Peptide 101 pg/mL (<100)
[2024-09-20 22:36] VITALS: BP 114/63; PULSE 50; RESP 18; TEMP 37; O2SAT 100
--- OUTSIDE RECORDS SUMMARY | 2024-09-20 22:47 | XMS_ITS | Encounter Summary ---
Author Organization [facility] Address [address] [place] [address] Care Team Providers Care Potato Grader Name Role Phone Deborah Meyer MD Primary Care Provider [phone] Encounter Details Date Type Department Care Team (Late st Contact Info) Description 07/15/2024 Lab Requisition [facility] - Main Lab [address] [facility] [place] [address] Chuck Trammell MD [address] [facility] [address] [place] [address] Personal history of malignant neoplasm of bladder Social History Tobacco Use Types Packs/Day Years Used Date Smoking Tobacco: Never Assessed Sex and Gender Information Value Date Recorded Sex Assigned at Not on file Legal Sex Male 9:24 AM EST Gender Identity Not on file Sexual Orientation Not on file documented as of this encounter Plan of Treatment Not on file documented as of this encounter Procedures Procedure Name Priority Date/Time Associated Diagnosis Comments AP OUTSIDE CONSULT Routine 07/28/2024 10 :52 AM EDT Personal history of malignant neoplasm of bladder documented in this encounter Results * Anatomic pathology outside consult (07/28/2024 10:52 AM EDT) Addendum Results of UroVysion fluorescence in situ hybridization (FISH) testing: Although FISH was performed, insufficient non-obscured hybridization signals are present for evaluation and interpretation. 07/28/2024 10:52 AM EDT [facility] ([facility]) [facility] Addendum electronically signed by Josr Burgos MD on 07/28/2024 at 10:52 AM Final Diagnosis A. Urine, cystoscopic ([id number]): Atypical urothelial cells. Note: Based upon the cytologic findings, UroVysion testing will be performed, the result to follow in an addendum. 07/28/2024 10:52 AM EDT [facility] Clinical Information History of bladder neoplasm (malignant) Z85.51 Urine cytology with reflex UroVysion ([facility]) 07/28/2024 10:52 AM EDT [facility] Gross Description A. Cystoscopic, ([id number]) Urine: Received one ThinPrep slide for cytology. 07/28/2024 10:52 AM EDT [facility] Disclaimer Unless otherwise specified, all tissue is 10% NB formalin fixed and paraffin embedded. 07/28/2024 10:[address] [facility] Tissue Cystoscope / Unknown 07/15/2024 1:45 PM EST us Chuck Trammell MD LAB PATHOLOGY ORDERABLES Ed ited Result - Final [facility] [address] [place] [address], documented in this encounter Visit Diagnoses Diagnosis Personal history of malignant neoplasm of bladder documented in this encounter Care Teams Potato Grader Relationship Specialty Start Date End Date Deborah Meyer MD [address] [place] [address] PCP - General Internal Medicine 07/28/24 documented as of this encounter
--- OUTSIDE RECORDS SUMMARY | 2024-09-20 22:47 | XMS_ITS | Encounter Summary ---
Author Organization [facility] Address [address] [place] [address] Care Team Providers Care Manager Online Name Role Phone Deborah Meyer MD Primary Care Provider [phone] Encounter Details Date Type Department Care Team (Late st Contact Info) Description 06/03/2024 Lab Requisition [facility] - Main Lab [address] [facility] [place] [address] Chuck Trammell MD [address] [facility] [address] [place] [address] Personal history of malignant neoplasm of bladder [...] Associated Diagnosis Comments AP OUTSIDE CONSULT Routine 05/27/2024 12 :00 AM EST Personal history of malignant neoplasm of bladder documented in this encounter Results * Anatomic pathology outside consult (05/27/2024 12:00 AM EST) Final Diagnosis A. Urine, Voided, ([id number]): Negative for high grade urothelial carcinoma. Results of UroVysion fluorescence in situ hybridization (FISH) testing: CEP3: Abnormal CEP7: Abnormal CEP17: Abnormal LSI 9p21: Normal Interpretation: Abnormal profile Controls stained appropriately. Note: Abnormal results are considered suspicious for urothelial carcinoma. 06/12/2024 5:21 PM EST [facility] Clinical Information History of bladder neoplasm (malignant) Z85.51 Urine Cytology/FISH (now) 06/12/2024 5:[address] [facility] Gross Description A. Urine, Voided, ([id number]): Received is one ThinPrep slide for cytology screen and one ThinPrep slide for UroVysion FISH 06/12/2024 5:21 PM [facility] Disclaimer Unless otherwise specified, all tissue is 10% NB formalin fixed and paraffin embedded. Technical pathology services provided by [facility] [address] [facility] [address] [place] [address] (CLIA #[id number]/Su Steele MD, Obstetrics Nurse Practitioner) 06/12/2024 5:21 PM [facility] Tissue Urine specimen from urethra / Unknown 05/27/2024 06/03/2024 11:08 AM EST us Chuck Trammell MD LAB PATHOLOGY ORDERABLES Fi nal Result [facility] [address] [place] [address], documented in this encounter Visit Diagnoses Diagnosis Personal history of malignant neoplasm of bladder documented in this encounter Care Teams Manager Online Relationship Specialty Start Date End Date Deborah Meyer MD [address] [place] [address] PCP - General Internal Medicine 07/28/24 documented as of this encounter
--- OUTSIDE RECORDS SUMMARY | 2024-09-20 22:47 | XMS_ITS | Clinical Summary ---
Author Organization [address] [facility] Address [address] [place] [address] Phone Care Team Providers Care Certified Mortician Name Role Phone Deborah Meyer MD Primary Care Provider Encounters Date Type Department Care Team Description 07/28/2024 Lab Requisition [facility] Lab [address] [place] [phone] Chuck Trammell MD Urinary tract infection, site not specified; Acute cystitis without hematuria 07/15/2024 Lab Requisition [facility] Lab [address] [place] [phone] Chuck Trammell MD Personal history of malignant neoplasm of bladder 07/15/2024 Lab Requisition [facility] [address] [place] [phone] Chuck Trammell MD 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 (CMS/HCC V24, CMS/HCC V28) from Last 3 Months Social History Tobacco Use Types Packs/Day Years Used Date Smoking Tobacco: Never Assessed Sex and Gender Information Value Date Recorded Sex Assigned at Not on file Legal Sex Male 9:24 AM EST Gender Identity Not on file Sexual Orientation Not on file Plan of Treatment Health Maintenance Due Date Last Done Comments COVID-19 Vaccine (#1) 1950 DTaP,Tdap,and Td Vaccines (1 - Tdap) 1966 Pneumococcal Vaccine: 50+ Ye ars (1 of 2 - PCV) 1966 Zoster Vaccines (1 of 2) 1966 RSV Immunization Adult Patie nts (1 - 1-dose 75+ series) 2022 Cholesterol Screening (Lipid Panel) 07/05/2024 Depression Screening 07/05/2024 Falls Risk Assessment 07/05/2024 Hepatitis C Screening 07/05/2024 Medicare Annual Wellness Visit 07/05/2024 Social Influencers of Health Screening 07/05/2024 Influenza Vaccine (Season Ended) 2025 HIB Vaccines Aged Out No longer eligi ble based on patient's age to complete this topic HPV Vaccines Aged Out No longer eligi ble based on patient's age to complete this topic Hepatitis A Vaccines Aged Out No long er eligible based on patient's age to complete this topic Hepatitis B Vaccines Aged Out No long er eligible based on patient's age to complete this topic IPV Vaccines Aged Out No longer eligi ble based on patient's age to complete this topic MMR Vaccines Aged Out No longer eligi ble based on patient's age to complete this topic Meningococcal ACWY Vaccine Aged Out N o longer eligible based on patient's age to complete this topic Meningococcal B Vaccine Aged Out No l onger eligible based on patient's age to complete this topic RSV Immunization Patients Un mehnaz 20 months Aged Out No longer eligible b ased on patient's age to complete this topic Varicella Vaccines Aged Out No longer eligible based on patient's age to complete this topic Procedures Procedure Name Priority Date/Time Associated Diagnosis Comments AP OUTSIDE CONSULT Routine 07/28/2024 10 :52 AM EDT Personal history of malignant neoplasm of bladder CULTURE URINE Routine 07/28/2024 9:15 AM EDT Urinary tract infection, site not specified Acute cystitis without hematuria AP OUTSIDE CONSULT Routine 07/13/2024 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 Addendum Results of UroVysion fluorescence in situ hybridization (FISH) testing: Although FISH was performed, insufficient non-obscured hybridization signals are present for evaluation and interpretation. 07/28/2024 10:52 AM EDT [facility] Addendum electronically signed by Josr Burgos MD on 07/28/2024 at 10:52 AM Final Diagnosis A. Urine, cystoscopic ([id number]): Atypical urothelial cells. Note: Based upon the cytologic findings, UroVysion testing will be performed, the result to follow in an addendum. 07/28/2024 10:52 AM EDT [facility] Clinical Information History of bladder neoplasm (malignant) Z85.51 Urine cytology with reflex UroVysion ([facility]) 07/28/2024 10:52 AM EDT [facility] Gross Description A. Cystoscopic, ([id number]) Urine: Received one ThinPrep slide for cytology. 07/28/2024 10:52 AM EDT [facility] Disclaimer Unless otherwise specified, all tissue is 10% NB formalin fixed and paraffin embedded. 07/28/2024 10:52 AM EDT [facility] Tissue Cystoscope / Unknown 07/15/2024 1:45 PM EST Chuck Trammell MD LAB PATHOLOGY ORDERABLES Ed ited Result - Final Performing Organization Address [facility]/ZIP Co de Phone Number [facility] [address] [place] [address], [place] [phone] * Culture urine (07/28/2024 9:15 AM EDT) Culture, Urine No growth 07/29/2024 1:19 PM EDT [facility] Urine Urine specimen obtained by clean catch procedure / Unknown 07/28/2024 9:15 AM EDT 07/28/2024 7:07 PM EDT Chuck Trammell MD LAB MICROBIOLOGY - GENERAL ORDERABLES Final Result [facility] [address] [place] [address], [place] [phone] from Last 3 Months Insurance [employer] - [place] MEDICARE ADVANTAGE Care Teams Certified Mortician Relationship Specialty Start Date End Date Deborah Meyer MD [address] [place] [address] PCP - General Internal Medicine 07/28/24
--- OUTSIDE RECORDS SUMMARY | 2024-09-20 22:47 | XMS_ITS | Encounter Summary ---
Author Organization [facility] Address [address] [place] [address] Care Team Providers Care Telecommunications Network Engineer Name Role Phone Deborah Meyer MD Primary Care Provider [phone]- [phone] Encounter Details Date Type Department Care Team (Late st Contact Info) Description 07/28/2024 Lab Requisition [facility] - Main Lab [address] [place] [address] Chuck Trammell MD [address] [facility] [address] [place], [place] [id number] Urinary tract infection, site not specified; Acute cystitis without hematuria Social History Tobacco Use Types Packs/Day Years [...] Procedure Name Priority Date/Time Associated Diagnosis Comments CULTURE URINE Routine 07/28/2024 9:15 AM EDT Urinary tract infection, site not specified Acute cystitis without hematuria documented in this encounter Results * Culture urine (07/28/2024 9:15 AM EDT) Culture, Urine No growth 07/29/2024 1:19 PM EDT [facility] ([facility]) [facility] Urine Urine specimen obtained by clean catch procedure / Unknown 07/28/2024 9:15 AM EDT 07/28/2024 7:07 PM EDT Chuck Trammell MD LAB MICROBIOLOGY - GENERAL ORDERABLES Final Result Performing Organization Address City/State/[facility] Co de Phone Number [facility] [address] [place] [address], documented in this encounter Visit Diagnoses Diagnosis Urinary tract infection, site not specified Acute cystitis without hematuria documented in this encounter Care Teams Telecommunications Network Engineer Relationship Specialty Start Date End Date Deborah Meyer MD [address] [place] [address] PCP - General Internal Medicine 07/28/24 documented as of this encounter
[2024-09-20 23:34] VITALS: BP 114/63; PULSE 50; RESP 18; TEMP 37; O2SAT 100
== END 2024-09-20 23:35 | disposition home or self-care (01) ==
PROVIDERS: Physician Assistant Medical; Emergency Provider Emergency Medicine; PCP Internal Medicine
DX: M25.461 Effusion, right knee (principal); M25.561 Pain in right knee; R60.0 Localized edema; R00.1 Bradycardia, unspecified; D69.6 Thrombocytopenia, unspecified; Z79.899 Other long term (current) drug therapy
CPT/HCPCS: 36415; 73564; 80048; 80076; 83735; 83880; 85025; 85610; 93971; 99284

== ENCOUNTER → 2024-09-20 20:58 | Outpatient (BNV) | payer MEDICARE, SELFPAY | PROVIDERS: PCP Internal Medicine; Visit Provider Radiology Diagnostic Radiology | DX: M79.604 Pain in right leg (principal); M25.561 Pain in right knee | CPT/HCPCS: 73564; 93971 ==

== ENCOUNTER 2024-12-02 09:22 | Outpatient (AMB) | payer MEDICARE, SELFPAY ==
--- OUTSIDE RECORDS SUMMARY | 2024-12-02 09:44 | XMS_ITS | Encounter Summary ---
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 (CMS/HCC V24, CMS/HCC V28) Social History Tobacco Use Types Packs/Day Years [...] Associated Diagnosis Comments AP OUTSIDE CONSULT Routine 07/13/2024 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 Urinary Bladder, : Labeled Bladder tumor. Received in formalin is a 0.3x0.3x0.2cm soft, combs-red tissue fragment, which is wrapped in paper and submitted in toto in one cassette, one piece, multiple levels. /al 07/15/2024 4:39 PM EST [facility] Disclaimer Unless otherwise specified, all tissue is 10% NB formalin fixed and paraffin embedded. 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
[2024-12-02 10:04] VITALS: BP 112/70; PULSE 51; RESP 16; TEMP 36.4; O2SAT 95; BMI 34.0
--- NOTE | 2024-12-02 10:04 | MHC.PC.OV ---
Vital Signs 12/02/24 10:04 Height 5 ft 11 in Weight 244 lb BMI 34.0 BP 112/70 Blood Pressure Location Rt brachial Position Sitting Respiration 16 Pulse 51 Pulse Source Pulse Oximeter Temp 97.6 F Temp Source Oral Pulse Oximetry (%) 95 Oxygen Delivery Method Room Air Intake Visit Reasons: 6 months f/up ~ R/S by patient from October 08 Intake Note: Pt is here today for his 6mo. f/u Allergies No Known Allergies (No Known Allergies*) Allergy (Verified 12/02/24 10:27) Medication List - Last Reconciled 12/02/24 by Deborah Meyer MD aspirin (Adult Aspirin Regimen) 81 mg PO DAILY hydrochlorothiazide 50 mg PO Q OTHER DAY lisinopril 20 mg PO DAILY 90 days meclizine 25 mg PO TID PRN multivitamin 1 tab PO DAILY omeprazole 20 mg PO DAILY Tobacco use date assessed: 12/02/24 Fall risk assessment: No Falls in past year Last assessed Fall Risk: 12/02/24 Dental Screening Dental Screen Date: 12/02/24 Did you have a dental visit in the last 12 months?: No Did you have a dental problem in the last 6 months where you did not have access to dental care?: No Was dental information given to patient?: Patient declined HPI 6 months f/up ~ R/S by patient from October 08 HPI Details 79-year-old male with history of bladder cancer, prostate cancer, followed by Urology, Meniere's disease, thrombocytopenia and anemia, GERD and hypertension, here today for his follow-up. Patient states that he feels well, denies any chest pain, no headache, no lightheadedness, no shortness of breath, no abnormal bleeding episodes of noted. His blood pressure today is on the low end of normal. He is currently taking lisinopril 20 mg daily and has been taking hydrochlorothiazide 50 mg every other day, which patient states was started by Dr. Harvey for treatment of his Meniere's disease, together with meclizine. He states that he decreased his dosing frequency of hydrochlorothiazide to 50 mg every other day as he has been having urinary frequency. Will also like a referral to see a it consulting manager, for evaluation of yellow thickened toenails in both big toes [facility] Medical History (Updated 12/02/24 @ 11:03 by Deborah Meyer MD) New onset atrial fibrillation Hypertrophic toenail Anemia Hx of bladder cancer Neoplasm of bladder History of prostate cancer Meniere disease Thrombocytopenia Elevated liver enzymes Prostate cancer Impaired fasting glucose Right bundle branch block GERD (gastroesophageal reflux disease) Essential hypertension Surgical History History of hernia repair History of prostatectomy Family History Father Diabetes mellitus Mother Alcoholic Brother Cancer of prostate Brother No problems noted. Sister No problems noted. Social History Household Members: Spouse Housing: House Alcohol intake: never Patient Tobacco Use Status: Never used Tobacco e-Cigarette/Vaping Use: Never Used Second Hand Smoke Exposure: No Advance Directives Date on File: 07/02/22 service: Yes Current occupational status: retired Cognitive needs: No Hearing needs: Yes Vision needs: Yes Questionnaire PHQ-9 Over the last 2 weeks, how often have you been bothered by any of the following problems? 1. Little interest or pleasure in doing things: not at all 2. Feeling down, depressed, or hopeless: not at all 3. Trouble falling or staying asleep, or sleeping too much: not at all 4. Feeling tired or having little energy: not at all 5. Poor appetite or overeating: not at all 6. Feeling bad about yourself - or that you are a failure or have let yourself or your family down: not at all 7. Trouble concentrating on things, such as reading the newspaper or watching television: not at all 8. Moving or speaking so slowly that other people could have noticed. Or the opposite - being so fidgety or restless that you have been moving around a lot more than usual: not at all 9. Thoughts that you would be better off or of hurting yourself in some way: not at all Total score: 0 Depression Screening Interpretation: Negative Depression Screening Done: Yes 07438 - PHQ-9 Billing: Yes Source: Developed by Drs. Brien Jacinto, Raiza Willams, Neil Pastor and colleagues, with an educational erin from [employer]. Thrive Questionnaire Date Thrive assessed: 12/01/24 I am a: Patient What is your living situation today?: I have a steady place to live Within the past 12 months, did the food you bought not last and you didn't have the money to get more?: Never true Within the past 12 months, did you worry whether your food would run out before you got money to buy more?: Never true Do you have trouble paying for medicines?: No Do you have trouble getting transportation to medical appointments?: No Do you have trouble paying your heating and electricity bill?: No Do you have trouble taking care of your child, family member or friend?: No Do you have trouble with day-to-day activities such as bathing, preparing meals, shopping, managing finances, etc.?: No Are you currently unemployed and looking for a job?: No Are you interested in more education?: No Please select the resources that you would like help with: None Currently or been in a relationship where the following occur: No concerns reported THRIVE Score: 0 AUDIT C Alcohol Use Questionnaire (AUDIT-C) 1. How often do you have a drink containing alcohol?: Monthly or less 2. How many drinks containing alcohol do you have on a typical day when you are drinking?: 1 or 2 3. How often do you have six or more drinks on one occasion?: Never Total Score: 1 RANULFO-7 AMB Questionnaire RANULFO-7 Date RANULFO - 7 assessed: 12/02/24 Feeling nervous, anxious, or on edge: 0 = Not at all Not being able to stop or control worryin = Not at all Worrying too much about different things: 0 = Not at all Trouble relaxin = Not at all Being so restless that it is hard to sit still: 0 = Not at all Becoming easily annoyed or irritable: 0 = Not at all Feeling afraid as if something awful might happen: 0 = Not at all Total RANULFO-7 score (0-4 normal; 5-9 mild; 10-14 moderate; 15-21 severe): 0 Source: Developed by Drs. Brien Jacinto, Raiza Willams, Neil Pastor and colleagues, with an educational erin from [employer]. RANULFO-7 Assessment Billing RANULFO-7 Assessment Tool: RANULFO-7 Assessment 36727 Review of Systems Const Denies body aches, Denies fatigue, Denies fever(s), Denies headache(s) and Denies weakness Eyes Denies change in vision ENT Denies dizziness, Denies headache(s), Denies nasal congestion, Denies nasal discharge and Denies sore throat Card Denies chest pain, Denies lightheadedness, Denies palpitations and Denies dyspnea Resp Denies chest congestion, Denies cough, Denies dyspnea and Denies wheezing GI Denies abdominal pain, Denies melena, Denies hematochezia, Denies change in bowel habits and Denies heartburn Denies hematuria, Denies oliguria, Denies difficulty urinating, Denies dysuria, Denies urinary frequency and Denies urinary urgency Musc Reports no additional complaints Skin/Breast Reports as per HPI, Denies lesions and Denies rash Neuro Denies dizziness, Denies headache(s) and Denies weakness Psych Reports no additional complaints Endo Denies fatigue, Denies polydipsia, Denies polyuria and Denies palpitations Yoa/Lymph Denies easy bleeding and Denies easy bruising Aller/Immun Denies seasonal rhinorrhea and Denies wheezing Physical exam (Primary Care) Vital Signs: Last Vital Signs Temp 97.6 F 12/02/24 10:04 Pulse 51 12/02/24 10:04 Resp 16 12/02/24 10:04 BP 112/70 12/02/24 10:04 Pulse Ox 95 12/02/24 10:04 Oxygen Delivery Method Room Air 12/02/24 10:04 BMI result Body Mass Index 34.0 Tobacco/Smoking Status: Tobacco use Status Tobacco use date assessed 12/02/24 12/02/24 10:09 Patient Tobacco Use Status Never used Tobacco 12/02/24 10:09 e-Cigarette/Vaping Use Never Used 12/02/24 10:09 PHQ-9: PHQ-9 Score PHQ-9: Total score 0 12/02/24 15:11 Depression Screening Interpretation: Negative Thrive Assessment: Date of Thrive Assessment Date Thrive assessed 12/01/24 12/02/24 10:09 Currently or been in a relationship where the following occur: No concerns reported Const General: cooperative, comfortable and no acute distress Orientation/consciousness: patient oriented x3 HENMT Ears: external ears normal General nose exam: Normal external nose present Mouth: Normal oral and palatal mucosa present, oropharynx normal and moist mucous membranes Throat: Yes posterior oropharynx normal Eyes General: appearance normal, both eyes and all related structures Conjunctivae: conjunctivae normal Pupils: Equal, round and reactive pupils present EOM: EOMs intact bilaterally Neck Neck: Yes full ROM, Yes no lymphadenopathy and Yes supple Resp Effort & Inspection: normal respiratory effort and able to speak in complete sentences Auscultation: clear to auscultation bilaterally Cardio Rate: tachycardic Rhythm: abnormal rhythm irregularly irregular GI Inspection: Yes normal to inspection Palpation (GI): Soft to palpation, nontender and no masses Auscultation: normal bowel sounds Skin General skin exam: no rashes or lesions noted Nails: yellow and thickened (Bilateral big toenails) Neuro General: patient oriented x3 Cranial nerves: Yes Equal, round and reactive pupils present Extrem General: Yes full ROM, Yes no joint enlargement, Yes no pedal edema and Yes normal gait Psych Appearance: grossly normal and well kempt Speech and movement: Normal speech and movement present Affect: normal affect Results Reviewed Results Reviewed: Name: Bobo Yost Age/Sex: 79/M : 1945 Unit#: [id number] Attend Dr: Bartolome Nieves MD Re09/20/24 Status: DEP ER Location: [facility] Disch: SPEC : [id number] DANNIE: 09/20/24 STATUS: COMP REQ : [id number] RECD: 09/20/[address]: Flores Velásquez COMP: 09/20/24 ENTERED: 09/20/[address]: Deborah Meyer MD ORDERED: CBC Auto Diff Test Result Flag Reference WBC 6.2 4.8-10.8 X10*3/uL RBC 4.19 L 4.60-5.80 X10*6/uL HGB 13.3 L 14.0-18.0 g/dl HCT 39.3 L 42.0-52.0 % MCV 93.8 80.0-98.0 fL MCH 31.7 27.0-33.0 pg MCHC 33.8 31.0-36.0 g/dl RDW 13.1 11.0-16.0 % PLT 117 L 160-400 X10*3/uL MPV 12.1 9.4-12.4 fL Neut Pct Auto 50.5 45-73 % ImGran Pct Auto 0.2 0.0-0.4 % Lymp Pct Auto 37.2 20-40 % Sweet Grass Pct Auto 9.7 2-11 % Eos Pct Auto 1.9 0-4 % Baso Pct Auto 0.5 0-2 % NRBC Pct Auto 0.0 0.0-0.2 /100WBC ANC Neut Abs # 3.1 2.0-8.3 x10*3/uL ImGran Abs Auto 0.01 0.00-0.03 X10*3/uL Lymph Abs Auto 2.3 1.2-4.9 X10*3/uL Sweet Grass Abs Auto 0.6 0.1-1.2 X10*3/uL Eos Abs Auto 0.1 0.0-0.4 X10*3/uL Baso Abs Auto 0.0 0.0-0.2 X10*3/uL NRBC Abs Auto 0.000 0.0-0.012 X10*3/uL Name: Bobo Yost Age/Sex: 79/M : 1945 Unit#: [id number] Attend Dr: Bartolome Nieves MD Re09/20/24 Status: DEP ER Location: [facility] Disch: SPEC : [id number] DANNIE: 09/20/24 STATUS: COMP REQ : [id number] RECD: 09/20/[address]: Flores Velásquez COMP: 09/20/24 ENTERED: 09/20/[address]: Deborah Meyer MD ORDERED: Liver Panel, BMP, MG Test Result Flag Reference Sodium 141 135-145 mmol/L Potassium 4.2 3.3-5.1 mmol/L CL 107 96-108 mmol/L CO2 24 22-29 mmol/L Gap 14 12-20 BUN 30 H 9-16 mg/dL Creat 0.78 0.5-1.4 mg/dL Estimated CrCl 101.5 eGFR (calculated from the MDRD study equation) and eCrCl (calculated from the Cockcroft-Gault equation) are based on different parameters and may not yield comparable results. If eCrCl result is absurd, please check patient's height/weight. eGFR > 60 Chronic Kidney Disease: Estimated GFR < 60 mL/min/1.73m2 Severe Kidney Disease: Estimated GFR < 15 mL/min/1.73m2 Glucose, Random 99 60-115 mg/dL CA 9.0 8.4-10.2 mg/dL Magnesium 1.8 1.6-2.6 mg/dL Total Bili 0.6 0.0-1.0 mg/dL Direct Bili 0.2 0.0-0.5 mg/dL AST (GOT) 57 H 5-37 U/L ALT (GPT) 53 H 0-40 U/L Protein, Total 7.0 6.5-8.0 g/dL Alb 4.0 3.5-5.0 g/dL Alk Phos 76 39-117 U/L Name: Bobo Yost Age/Sex: 78/M : 1945 Unit#: [id number] Attend Dr: Deborah Meyer MD Re04/24/24 Status: DEP REF [facility] Disch: SPEC : [id number] DANNIE: 04/24/24 STATUS: COMP REQ : [id number] RECD: 04/24/[address]: Deborah Meyer MD COMP: 04/24/24 ENTERED: 04/24/[address]: ORDERED: Met Prof Fast, AST, ALT, Lipid Panel, Vitamin D 25-OH Test Result Flag Reference Sodium 143 135-145 mmol/L Potassium 4.3 3.3-5.1 mmol/L CL 108 96-108 mmol/L CO2 28 22-29 mmol/L Gap 11 L 12-20 BUN 21 H 9-16 mg/dL Creat 0.79 0.5-1.4 mg/dL eGFR > 60 Chronic Kidney Disease: Estimated GFR < 60 mL/min/1.73m2 Severe Kidney Disease: Estimated GFR < 15 mL/min/1.73m2 FBS 119 H 60-99 mg/dL A fasting glucose from 100-125 mg/dl is considered impaired (pre-diabetes). CA 9.2 8.4-10.2 mg/dL AST (GOT) 55 H 5-37 U/L ALT (GPT) 58 H 0-40 U/L Triglyceride 106 <150 mg/dL Desirable Triglyceride: less than 150 mg/dL Borderline High Triglyceride 150-199 mg/dL High Triglyceride: 200-499 mg/dL Very High Triglyceride: greater than or equal to 5OO mg/dL Cholesterol 181 <200 mg/dL Desirable Cholesterol: less than 200 mg/dL Borderline High Cholesterol: 200-239 mg/dL High Cholesterol: greater than 239 mg/dL LDL Calculated 114 H <100 mg/dL Desirable LDL: less than 100 mg/dL Near Optimal/Above Optimal LDL: 110-129 mg/dL Borderline High LDL: 130-159 mg/dL High LDL: 160-189 mg/dL Very High LDL: greater than or equal to 190 mg/dL HDL 46 >40 mg/dL Desirable HDL: greater than 40 mg/dL Note: This HDL assay may give artificially low results in patients with liver disease. Vit D 25-OH Tot 52.3 >30 ng/mL Health Based Reference Values* < 20 ng/mL Deficient 20-30 ng/mL Insufficient > 30 ng/mL Sufficient Coding Level of Care Code Est Pt Level 4 (67768) Diagnoses New onset atrial fibrillation I48.91 Essential hypertension I10 Thrombocytopenia D69.6 Anemia, unspecified type D64.9 Anemia type: unspecified type Impaired fasting glucose R73.01 Hypertrophic toenail L60.2 Additional Codes RANULFO-7 Assessment Billing - RANULFO-7 Assessment Tool: RANULFO-7 Assessment 33141 ([id number]) PHQ-9 - 68019 - PHQ-9 Billing: Yes ([id number]) Assessment & Plan Assessment & Plan (1) New onset atrial fibrillation: Code(s): I48.91 - Unspecified atrial fibrillation Category: Medical Plan: EKG done today showed presence of atrial fibrillation, with rapid ventricular response, right bundle branch block, latter seen on previous EKG. Start metoprolol succinate 25 mg 1 tablet to be taken at night with supper, continue on lisinopril, decreased hydrochlorothiazide to 25 mg daily in a.m as needed for pedal edema. continue aspirin 81 mg daily . cardiology consult ordered (2) Essential hypertension: Code(s): I10 - Essential (primary) hypertension Category: Medical Plan: Decrease hydrochlorothiazide to 25 mg once a day, continued on lisinopril 20 mg daily (3) Thrombocytopenia: Comment: Seen and evaluated by Hematology in 2017, currently asymptomatic, with platelet count stable Code(s): D69.6 - Thrombocytopenia, unspecified Category: Medical Plan: No abnormal bleeding tendencies noted, will repeat another CBC with platelet count (4) Anemia: Code(s): D64.9 - Anemia, unspecified Category: Medical Qualifiers: Anemia type: unspecified type Qualified Code(s): D64.9 - Anemia, unspecified Plan: Will repeat another CBC, order ordered iron profile and ferritin level. (5) Impaired fasting glucose: Code(s): R73.01 - Impaired fasting glucose Category: Medical Plan: Your previous fasting blood sugars were elevated above 100 mg/dL. Impaired glucose metabolism increases the risk for developing diabetes mellitus type 2, as well as heart attack and stroke later on. Lifestyle changes that promotes weight loss, healthy eating habits, and regular exercise are important, and can prevent the progression to diabetes (6) Hypertrophic toenail: Code(s): L60.2 - Onychogryphosis Category: Medical Plan: Referred to podiatry for further evaluation Orders: Orders Lipid Panel Today D64.9 - Anemia, unspecified, D69.6 - Thrombocytopenia, unspecified, I10 - Essential (primary) hypertension, R73.01 - Impaired fasting glucose Complete Blood Count Auto Diff Today D64.9 - Anemia, unspecified, D69.6 - Thrombocytopenia, unspecified, I10 - Essential (primary) hypertension, R73.01 - Impaired fasting glucose AMB EKG-In Office Today I10 - Essential (primary) hypertension Hemoglobin A1c Today D64.9 - Anemia, unspecified, D69.6 - Thrombocytopenia, unspecified, I10 - Essential (primary) hypertension, R73.01 - Impaired fasting glucose Alanine Aminotransferase Today D64.9 - Anemia, unspecified, D69.6 - Thrombocytopenia, unspecified, I10 - Essential (primary) hypertension, R73.01 - Impaired fasting glucose Aspartate Amino Transferase Today D64.9 - Anemia, unspecified, D69.6 - Thrombocytopenia, unspecified, I10 - Essential (primary) hypertension, R73.01 - Impaired fasting glucose Basic Metabolic Panel Fasting Today D64.9 - Anemia, unspecified, D69.6 - Thrombocytopenia, unspecified, I10 - Essential (primary) hypertension, R73.01 - Impaired fasting glucose IRON PROFILE Today D64.9 - Anemia, unspecified, D69.6 - Thrombocytopenia, unspecified, I10 - Essential (primary) hypertension, R73.01 - Impaired fasting glucose Ferritin Today D64.9 - Anemia, unspecified, D69.6 - Thrombocytopenia, unspecified, I10 - Essential (primary) hypertension, R73.01 - Impaired fasting glucose Referrals Podiatry Referral L60.2 - Onychogryphosis Cardiology Referral D64.9 - Anemia, unspecified, I10 - Essential (primary) hypertension, I45.10 - Unspecified right bundle-branch block, I48.91 - Unspecified atrial fibrillation Medications: New metoprolol succinate ER 25 mg PO DAILY 30 tabs 3RF Changed From hydrochlorothiazide 50 mg PO Q OTHER DAY To hydrochlorothiazide 25 mg PO Q OTHER DAY PRN
== END 2024-12-02 11:05 | disposition home or self-care (01) ==
LOC: HO.HMCC 09:23
PROVIDERS: PCP Internal Medicine; Visit Provider Internal Medicine
DX: I48.91 Unspecified atrial fibrillation (principal); I10 Essential (primary) hypertension; D69.6 Thrombocytopenia, unspecified; D64.9 Anemia, unspecified; R73.01 Impaired fasting glucose; L60.2 Onychogryphosis

== ENCOUNTER → 2024-12-02 09:22 | Outpatient (BNVA) | payer MEDICARE, SELFPAY | PROVIDERS: PCP Internal Medicine; Visit Provider Internal Medicine | DX: K21.9 Gastro-esophageal reflux disease without esophagitis (principal); I10 Essential (primary) hypertension; R35.0 Frequency of micturition; I48.91 Unspecified atrial fibrillation; D69.3 Immune thrombocytopenic purpura; D64.9 Anemia, unspecified; R73.01 Impaired fasting glucose; L60.2 Onychogryphosis; Z79.899 Other long term (current) drug therapy | CPT/HCPCS: 96127; 99212 ==

== ENCOUNTER 2024-12-07 11:38 | Outpatient (REF) | payer MEDICARE, SELFPAY ==
--- OUTSIDE RECORDS SUMMARY | 2024-12-07 12:45 | XMS_ITS | Encounter Summary ---
Author Organization 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 Urinary Bladder, : Labeled Bladder tumor. Received in formalin is a 0.3x0.3x0.2cm soft, combs-red tissue fragment, which is wrapped in paper and submitted in toto in one cassette, one piece, multiple levels. /al 07/15/2024 4:[address] [facility] Disclaimer Unless otherwise specified, all tissue is 10% NB formalin fixed and paraffin embedded. 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
[2024-12-07 12:57] LABS: MANUAL DIFF FLAG NO
[2024-12-07 13:01] LABS: Hematocrit 40.9 % (42.0-52.0); Hemoglobin 13.2 g/dl (14.0-18.0); Imm Gran Abs Auto 0.01 X10*3/uL (0.00-0.03); Imm Gran Pct Auto 0.2 % (0.0-0.4); Lymphocytes Absolute Auto 2.3 X10*3/uL (1.2-4.9); Mean Corpuscular HGB Conc 32.3 g/dl (31.0-36.0); Mean Corpuscular Hemoglobin 31.3 pg (27.0-33.0); Mean Corpuscular Volume 96.9 fL (80.0-98.0); NRBC Abs Auto 0.000 X10*3/uL (0.0-0.012); NRBC Pct Auto 0.0 /100WBC (0.0-0.2); Platelet Count 104 X10*3/uL (160-400); Red Blood Count 4.22 X10*6/uL (4.60-5.80); White Blood Count 5.5 X10*3/uL (4.8-10.8)
[2024-12-07 13:20] LABS: Hemoglobin A1C 133.9951 umol/L; Total Hemoglobin (HGBA1C) 3455.0530 umol/L
[2024-12-07 13:39] LABS: Alanine Aminotransferase 65 U/L (0-40); Anion Gap 14 (12-20); Aspartate Amino Transferase 52 U/L (5-37); Blood Urea Nitrogen 21 mg/dL (9-16); Calcium 8.8 mg/dL (8.4-10.2); Carbon Dioxide 27 mmol/L (22-29); Chloride 107 mmol/L (96-108); Cholesterol 174 mg/dL (<200); Estimated Glomerular Filt Rate > 60; HDL Cholesterol 48 mg/dL (>40); Iron 159 mcg/dL (45-160); Percent Iron Saturation 58 % (15-50); Potassium 4.3 mmol/L (3.3-5.1); Sodium 144 mmol/L (135-145); Total Iron Binding Capacity 275 mcg/dL (228-428); Triglycerides 105 mg/dL (<150); Unsaturated Iron Binding 116 ug/dL
[2024-12-07 13:45] LABS: Ferritin 228 ng/mL (20-250)
== END 2024-12-07 11:39 | disposition home or self-care (01) ==
LOC: HO.HMGCLDS 11:38
PROVIDERS: PCP Internal Medicine; Visit Provider Internal Medicine
DX: D69.6 Thrombocytopenia, unspecified (principal); R73.01 Impaired fasting glucose; D64.9 Anemia, unspecified; I10 Essential (primary) hypertension
CPT/HCPCS: 36415; 80048; 80061; 82728; 83036; 83540; 84450; 84460; 85025

== ENCOUNTER 2024-12-14 12:44 | Outpatient (AMB) | payer MEDICARE, SELFPAY ==
--- NOTE | 2024-12-14 13:16 | A.OFFVIS_ITS ---
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/ jonathan Label Printing Machinist Required: No Bindery Machine Operator: Bindery Machine Operator Present Allergies No Known Allergies (No Known Allergies*) Allergy (Verified 12/14/24 13:19) Medication List - Last Reconciled 12/14/24 by Francois Mars MD hydrochlorothiazide 50 mg PO Q OTHER DAY PRN lisinopril 20 mg PO DAILY 90 days meclizine 25 mg PO TID PRN metoprolol succinate ER 25 mg PO DAILY multivitamin 1 tab PO DAILY omeprazole 20 mg PO DAILY HPI Comments Details: [age] year gentleman with background history of hypertension, prostate cancer, bladder cancer status post surgery and immune therapy, chronic thrombocytopenia, right bundle-branch block and gastroesophageal reflux disease. He also has been here disease and has been using hydrochlorothiazide. He was seen in his primary care physician office for a routine visit where EKGs showed atrial fibrillation with rapid ventricular response. The patient had no symptoms. He was started on metoprolol succinate 25 mg daily and was referred to us for further assessment. Today his EKGs showing sinus bradycardia with premature ventricular complexes. The patient is saying that he has no symptoms. Denying palpitations, chest pain or shortness of breath. He has had previously when he used to drink coffee we will get some palpitations but he has stopped doing that since it got the diagnosis of Meniere's disease. Blood pressure control has been good. From bladder cancer point of view, he has been stable. He will get repeat cystoscopy in 3 months. No recent bleeding. He is taking baby aspirin currently. [facility] Medical History (Updated 12/02/24 @ 11:03 by Deborah Meyer MD) New onset atrial fibrillation Hypertrophic toenail Anemia Hx of bladder cancer Neoplasm of bladder History of prostate cancer Meniere disease Thrombocytopenia Elevated liver enzymes Prostate cancer Impaired fasting glucose Right bundle branch block GERD (gastroesophageal reflux disease) Essential hypertension Surgical History History of hernia repair History of prostatectomy Family History (Updated 12/14/24 @ 13:22 by Chrsitelle Mendez CMA) Father Diabetes mellitus Mother Alcoholic Brother Cancer of prostate Heart attack Brother No problems noted. Sister No problems noted. Social History Household Members: Spouse Housing: House Alcohol intake: never Patient Tobacco Use Status: Never used Tobacco e-Cigarette/Vaping Use: Never Used Second Hand Smoke Exposure: No Advance Directives Date on File: 07/02/22 service: Yes Current occupational status: retired Cognitive needs: No Hearing needs: Yes Vision needs: Yes Review of Systems ENT Reports dizziness Card Denies chest pain, Denies chest pain at rest, Denies chest pain with activity, Denies rapid heart rate, Denies pedal edema, Denies edema, Denies leg edema, Denies lightheadedness, Denies palpitations, Denies dyspnea, Denies dyspnea on exertion and Denies orthopnea Resp Denies cough, Denies dyspnea and Denies dyspnea on exertion GI Denies hematochezia and Denies change in stool character Musc Denies abnormal gait, Reports limited range of motion, Reports muscle cramps, De nies muscle weakness, Denies numbness, Denies radiating pain into limb, Denies stiffness and Denies tingling Neuro Denies abnormal gait, Reports dizziness, Denies numbness and Denies tingling Endo Denies palpitations Physical Exam Vital Signs: Last Vital Signs Pulse 48 L 12/14/24 13:17 BP 124/62 12/14/24 13:17 BMI result Body Mass Index 34.2 GENERAL APPEARANCE: in no acute distress, pleasant. NECK: no carotid bruit, no jugular venous distention. SKIN: no suspicious lesions, warm and dry. HEART: no murmurs, regular rate and rhythm. LUNGS: clear to auscultation bilaterally. ABDOMEN: soft, nontender. EXTREMITIES: 1 to 2+ edema. PERIPHERAL PULSES: equal. NEUROLOGIC: No gross deficits, AAO X 3 Office Procedures EKG Details: Marked sinus bradycardia 48 beats per minute, premature ventricular complexes, right bundle-branch block, leftward axis, QTC 444 milliseconds. [id number], Complete Assessment & Plan Assessment & Plan (1) Essential hypertension: Code(s): I10 - Essential (primary) hypertension Category: Medical (2) Right bundle branch block: Code(s): I45.10 - Unspecified right bundle-branch block Category: Medical (3) New onset atrial fibrillation: Code(s): I48.91 - Unspecified atrial fibrillation Category: Medical Plan [age] year gentleman who is referred to us for atrial fibrillation. He was incidentally found to have atrial fibrillation in his primary care physician's office. He is back in sinus rhythm at this point. He is saying that his heart rate is usually slow in 40s. He is on Toprol-XL 25 mg and his heart rate is in high 40s to 50s. He has no dizziness or lightheadedness. We discussed about management of atrial fibrillation. It appears he has paroxysmal atrial fibrillation. He does have bradycardia at rest which limits our ability to give him any antiarrhythmic medications. I will start with a Holter monitor to see how much atrial fibrillation burden he has. We will also check the heart with echocardiography to rule out any cardiomyopathy or valvular issues. He does not have any significant murmurs on exam. He has peripheral edema which is a chronic issue for him. We have decided to start him on Eliquis after discussion. We will stop the baby aspirin. He will see us back in few months once the testing is done. If he bleeds on Eliquis then would stop the Eliquis and refer him to Dr Gil for Watchman placement. Thank you for allowing me to participate in the care of your patient. Please feel free to contact me if you have any questions. Orders: Orders CA echo transthoracic complete Today I48.91 - Unspecified atrial fibrillation ECG 14 day holter monitor Today I48.91 - Unspecified atrial fibrillation Coding Level of Care Code New Pt Level 4 (59810) Diagnoses Essential hypertension I10 Right bundle branch block I45.10 New onset atrial fibrillation I48.91 CPT Codes EKG - CPT: 61800-[id number], Complete ([id number])
[2024-12-14 13:17] VITALS: BP 124/62; PULSE 48; BMI 34.2
--- OUTSIDE RECORDS SUMMARY | 2024-12-14 13:28 | XMS_ITS | Encounter Summary ---
Author Organization [facility] Address [address] [place] [address] Care Team Providers Care Dental Financial Coordinator Name Role Phone Physician, Pcp Unknown Primary Care Provider Monica vailable Encounter Details Date Type Department Care Team (Late st Contact Info) Description 07/15/2024 Lab Requisition [facility] - Main Lab [address] [facility] [place] [address] Chuck Trammell MD [address] [facility] [address] [place] [address] 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 [...] situ: Not identified 07/15/2024 4:[address] [facility] Clinical Information C67.3 [id number] 07/15/2024 4:39 PM EST [facility] Gross Description A. Urinary Bladder, : Labeled Bladder tumor. Received in formalin is a 0.3x0.3x0.2cm soft, combs-red tissue fragment, which is wrapped in paper and submitted in toto in one cassette, one piece, multiple levels. /al 07/15/2024 4:39 PM EST [facility] Disclaimer Unless otherwise specified, all tissue is 10% NB formalin fixed and paraffin embedded. Technical pathology services provided by [facility] [address] [facility] [address] [place] [address] (CLIA #[id number]/S rosemarie Steele MD, Packaging Clerk) 07/15/2024 4:39 PM EST [facility] Tissue Urinary bladder structure / Unknown 07/13/2024 07/15/2024 11:47 AM EST us Chuck Trammell MD LAB PATHOLOGY ORDERABLES Fi nal Result [facility] [address] [place] [address], documented in this encounter Visit Diagnoses Diagnosis 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 (CMS/HCC V24, CMS/HCC V28) Malignant neoplasm of anterior wall of urinary bladder documented in this encounter Care Teams Dental Financial Coordinator Relationship Specialty Start Date End Date Physician, Pcp Unknown PCP - General 12/03/24 documented as of this encounter
== END 2024-12-14 13:54 | disposition home or self-care (01) ==
LOC: HO.HCS 12:45
PROVIDERS: PCP Internal Medicine; Visit Provider Internal Medicine Cardiovascular Disease
DX: I10 Essential (primary) hypertension (principal); I45.10 Unspecified right bundle-branch block; I48.91 Unspecified atrial fibrillation
CPT/HCPCS: 93010; 99204

== ENCOUNTER → 2024-12-14 12:44 | Outpatient (BNVA) | payer MEDICARE, SELFPAY | PROVIDERS: PCP Internal Medicine; Visit Provider Internal Medicine Cardiovascular Disease | DX: I10 Essential (primary) hypertension (principal); I45.10 Unspecified right bundle-branch block; I48.91 Unspecified atrial fibrillation | CPT/HCPCS: 93005; 99202 ==

== ENCOUNTER 2025-01-04 10:44 | Outpatient (AMB) | payer MEDICARE, SELFPAY ==
--- NOTE | 2025-01-04 10:48 | A.OFFPC_ITS ---
Vital Signs 01/04/25 10:58 Height 5 ft 11 in Weight 248 lb BMI 34.6 BP 122/80 Blood Pressure Location Rt brachial Position Sitting Respiration 16 Pulse 52 Pulse Source Pulse Oximeter Temp 97.6 F Temp Source Oral Pulse Oximetry (%) 100 Oxygen Delivery Method Room Air Intake Visit Reasons: 1m follow up Intake Note: Pt is here today for his 1 mo. f/u Allergies No Known Allergies (No Known Allergies*) Allergy (Verified 01/04/25 11:11) Medication List - Last Reconciled 01/04/25 by Deborah Meyer MD apixaban (Eliquis) 5 mg PO BID 90 days hydrochlorothiazide 50 mg PO Q OTHER DAY PRN lisinopril 20 mg PO DAILY 90 days meclizine 25 mg PO TID PRN metoprolol succinate ER 25 mg PO DAILY multivitamin 1 tab PO DAILY omeprazole 20 mg PO DAILY Tobacco use date assessed: 01/04/25 Fall risk assessment: No Falls in past year Last assessed Fall Risk: 01/04/25 Dental Screening Dental Screen Date: 01/04/25 Did you have a dental visit in the last 12 months?: No Did you have a dental problem in the last 6 months where you did not have access to dental care?: No Was dental information given to patient?: No HPI 1m follow up HPI Details 79-year-old male with history of bladder cancer, prostate cancer, followed by Urology, Meniere's disease, thrombocytopenia and anemia, GERD and hypertension, here today for his follow-up. Recently diagnosed to have paroxysmal atrial fibrillation, started on metoprolol and aspirin, currently asymptomatic. He was recently seen by Cardiology and found that patient is back in sinus rhythm , but has a slow heart rate with patient saying that his heart rate is usually slow in 40s. It appears he has paroxysmal atrial fibrillation. Due to patient having bradycardia at rest, they were unable to to give him any antiarrhythmic medications. Holter monitor was ordered to see how much atrial fibrillation burden he has, and echocardiography was scheduled to rule out any cardiomyopathy or valvular issues. They have decided to start him on Eliquis and aspirin B1 mg daily was stopped. It was stated that if he bleeds on Eliquis, it would be discontinued and would refer him to Dr Gil for Watchman placement. Had recent fasting labs done which showed mild anemia and thrombocytopenia unchanged from previous tests. Fasting glucose, electrolytes, renal function are all within normal limits, mildly elevated liver enzymes noted with normal lipids [facility] Medical History (Updated 01/04/25 @ 11:28 by Deborah Meyer MD) Paroxysmal atrial fibrillation New onset atrial fibrillation Hypertrophic toenail Anemia Hx of bladder cancer Neoplasm of bladder History of prostate cancer Meniere disease Thrombocytopenia Elevated liver enzymes Prostate cancer Impaired fasting glucose Right bundle branch block GERD (gastroesophageal reflux disease) Essential hypertension Surgical History History of hernia repair History of prostatectomy Family History Father Diabetes mellitus Mother Alcoholic Brother Cancer of prostate Heart attack Brother No problems noted. Sister No problems noted. Social History Household Members: Spouse Housing: House Alcohol intake: never Patient Tobacco Use Status: Never used Tobacco e-Cigarette/Vaping Use: Never Used Second Hand Smoke Exposure: No Advance Directives Date on File: 07/02/22 service: Yes Current occupational status: retired Cognitive needs: No Hearing needs: Yes Vision needs: Yes Questionnaire Thrive Questionnaire Date Thrive assessed: 12/01/24 I am a: Patient What is your living situation today?: I have a steady place to live Within the past 12 months, did the food you bought not last and you didn't have the money to get more?: Never true Within the past 12 months, did you worry whether your food would run out before you got money to buy more?: Never true Do you have trouble paying for medicines?: No Do you have trouble getting transportation to medical appointments?: No Do you have trouble paying your heating and electricity bill?: No Do you have trouble taking care of your child, family member or friend?: No Do you have trouble with day-to-day activities such as bathing, preparing meals, shopping, managing finances, etc.?: No Are you currently unemployed and looking for a job?: No Are you interested in more education?: No Please select the resources that you would like help with: None Currently or been in a relationship where the following occur: No concerns reported THRIVE Score: 0 RANULFO-7 AMB Questionnaire RANULFO-7 Date RANULFO - 7 assessed: 12/02/24 Source: Developed by Drs. Brien Jacinto, Raiza Willams, Neil Pastor and colleagues, with an educational erin from [employer]. Review of Systems Const Reports no additional complaints ENT Reports no additional complaints Card Denies chest pain at rest, Denies chest pain with activity, Denies pedal edema, Denies lightheadedness, Denies dyspnea and Denies dyspnea on exertion Resp Denies cough, Denies dyspnea and Denies dyspnea on exertion GI Reports no additional complaints Reports no additional complaints Musc Reports no additional complaints Neuro Reports no additional complaints Psych Reports no additional complaints Endo Reports no additional complaints Yao/Lymph Reports no additional complaints Physical exam (Primary Care) Vital Signs: Last Vital Signs Temp 97.6 F 01/04/25 10:58 Pulse 52 01/04/25 10:58 Resp 16 01/04/25 10:58 BP 122/80 01/04/25 10:58 Pulse Ox 100 01/04/25 10:58 Oxygen Delivery Method Room Air 01/04/25 10:58 BMI result Body Mass Index 34.6 Tobacco/Smoking Status: Tobacco use Status Tobacco use date assessed 01/04/25 01/04/25 11:01 Patient Tobacco Use Status Never used Tobacco 01/04/25 10:50 e-Cigarette/Vaping Use Never Used 01/04/25 10:50 Thrive Assessment: Date of Thrive Assessment Date Thrive assessed 12/01/24 01/04/25 10:50 Currently or been in a relationship where the following occur: No concerns reported Const General: comfortable and no acute distress Orientation/consciousness: patient oriented x3 HENMT Ears: external ears normal General nose exam: Normal external nose present Mouth: Normal oral and palatal mucosa present, oropharynx normal and moist mucous membranes Eyes General: appearance normal, both eyes and all related structures Neck Neck: Yes full ROM, Yes no lymphadenopathy and Yes supple Resp Effort & Inspection: normal respiratory effort and able to speak in complete sentences Auscultation: clear to auscultation bilaterally Cardio Rate: bradycardic GI Inspection: Yes normal to inspection Palpation (GI): Soft to palpation, nontender and no masses Auscultation: normal bowel sounds Skin General skin exam: no rashes or lesions noted Neuro General: patient oriented x3 Extrem General: Yes full ROM, Yes no joint enlargement, Yes no pedal edema and Yes normal gait Psych Appearance: grossly normal and well kempt Speech and movement: Normal speech and movement present Affect: normal affect Results Reviewed Results Reviewed: Name: Bobo Yost Age/Sex: 79/M : 1945 Unit#: [id number] Attend Dr: Deborah Meyer MD Re12/07/24 Status: DEP REF Location: [facility] Disch: SPEC : [id number] DANNIE: 12/07/24 STATUS: COMP REQ : [id number] RECD: 12/07/[address]: Deborah Meyer MD COMP: 12/07/24 ENTERED: 12/07/[address] [facility] [address]: ORDERED: CBC Auto Diff Test Result Flag Reference WBC 5.5 4.8-10.8 X10*3/uL RBC 4.22 L 4.60-5.80 X10*6/uL HGB 13.2 L 14.0-18.0 g/dl HCT 40.9 L 42.0-52.0 % MCV 96.9 80.0-98.0 fL MCH 31.3 27.0-33.0 pg MCHC 32.3 31.0-36.0 g/dl RDW 12.8 11.0-16.0 % PLT 104 L 160-400 X10*3/uL MPV 12.7 H 9.4-12.4 fL Neut Pct Auto 45.1 45-73 % ImGran Pct Auto 0.2 0.0-0.4 % Lymp Pct Auto 41.3 H 20-40 % Isabela Pct Auto 10.0 2-11 % Eos Pct Auto 2.9 0-4 % Baso Pct Auto 0.5 0-2 % NRBC Pct Auto 0.0 0.0-0.2 /100WBC ANC Neut Abs # 2.5 2.0-8.3 x10*3/uL ImGran Abs Auto 0.01 0.00-0.03 X10*3/uL Lymph Abs Auto 2.3 1.2-4.9 X10*3/uL Isabela Abs Auto 0.6 0.1-1.2 X10*3/uL Eos Abs Auto 0.2 0.0-0.4 X10*3/uL Baso Abs Auto 0.0 0.0-0.2 X10*3/uL NRBC Abs Auto 0.000 0.0-0.012 X10*3/uL kasey: Bobo Yost Age/Sex: 79/M : 1945 Unit#: [id number] Attend Dr: Deborah Meyer MD Re12/07/24 Status: DEP REF Location: [facility] Disch: SPEC : [id number] DANNIE: 12/07/24 STATUS: COMP REQ : [id number] RECD: 12/07/[address]: Deborah Meyer MD COMP: 12/07/24 ENTERED: 12/07/[address]: ORDERED: Met Prof Fast, IRON PROF, Ferritin, AST, ALT, Lipid Panel Test Result Flag Reference Sodium 144 135-145 mmol/L Potassium 4.3 3.3-5.1 mmol/L CL 107 96-108 mmol/L CO2 27 22-29 mmol/L Gap 14 12-20 BUN 21 H 9-16 mg/dL Creat 0.77 0.5-1.4 mg/dL eGFR > 60 Chronic Kidney Disease: Estimated GFR < 60 mL/min/1.73m2 Severe Kidney Disease: Estimated GFR < 15 mL/min/1.73m2 FBS 96 60-99 mg/dL CA 8.8 8.4-10.2 mg/dL Iron 159 45-160 mcg/dL TIBC 275 228-428 mcg/dL Saturation 58 H 15-50 % UIBC 116 ug/dL Ferritin 228 20-250 ng/mL AST (GOT) 52 H 5-37 U/L ALT (GPT) 65 H 0-40 U/L Triglyceride 105 <150 mg/dL Desirable Triglyceride: less than 150 mg/dL Borderline High Triglyceride 150-199 mg/dL High Triglyceride: 200-499 mg/dL Very High Triglyceride: greater than or equal to 5OO mg/dL Cholesterol 174 <200 mg/dL Desirable Cholesterol: less than 200 mg/dL Borderline High Cholesterol: 200-239 mg/dL High Cholesterol: greater than 239 mg/dL LDL Calculated 105 H <100 mg/dL Desirable LDL: less than 100 mg/dL Near Optimal/Above Optimal LDL: 110-129 mg/dL Borderline High LDL: 130-159 mg/dL High LDL: 160-189 mg/dL Very High LDL: greater than or equal to 190 mg/dL HDL 48 >40 mg/dL Desirable HDL: greater than 40 mg/dL Note: This HDL assay may give artificially low results in patients with liver disease. Coding Level of Care Code Est Pt Level 4 (87433) Complex EM visit Add On G2211 Diagnoses Essential hypertension I10 Paroxysmal atrial fibrillation I48.0 Thrombocytopenia D69.6 Assessment & Plan Assessment & Plan (1) Essential hypertension: Code(s): I10 - Essential (primary) hypertension Category: Medical Plan: Blood pressure at goal of less than 130/80. Continue with current medication. Reinforced importance of following a low sodium diet, getting regular exercise, and lowering stress levels. (2) Paroxysmal atrial fibrillation: Code(s): I48.0 - Paroxysmal atrial fibrillation Category: Medical Plan: Now on Eliquis, continued on metoprolol, seen by Cardiology who ordered Holter monitoring and echocardiogram (3) Thrombocytopenia: Comment: Seen and evaluated by Hematology in 2017, currently asymptomatic, with platelet count stable Code(s): D69.6 - Thrombocytopenia, unspecified Category: Medical Plan: Currently asymptomatic, will continue to monitor
[2025-01-04 10:58] VITALS: BP 122/80; PULSE 52; RESP 16; TEMP 36.4; O2SAT 100; BMI 34.6
--- OUTSIDE RECORDS SUMMARY | 2025-01-04 11:44 | XMS_ITS | Encounter Summary ---
Author Organization [facility] Address [address] [place] [address] Care Team Providers Care Blender / Cook Name Role Phone Physician, Pcp Unknown Primary Care Provider Monica vailable Encounter Details Date Type Department Care Team (Late st Contact Info) Description 07/15/2024 Lab Requisition [facility] - Main Lab [address] [facility] [place] [address] Chuck Trammell MD [address] [facility] [address] [place] [address] 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 [...] situ: Not identified 07/15/2024 4:39 PM EST [facility] Clinical Information C67.3 [id number] 07/15/2024 4:39 PM EST [facility] Gross Description A. Urinary Bladder, : Labeled Bladder tumor. Received in formalin is a 0.3x0.3x0.2cm soft, combs-red tissue fragment, which is wrapped in paper and submitted in toto in one cassette, one piece, multiple levels. /al 07/15/2024 4:39 PM EST [facility] Disclaimer Unless otherwise specified, all tissue is 10% NB formalin fixed and paraffin embedded. Technical pathology services provided by [facility] [address] [facility] [address] [place] [address] (CLIA #[id number]/S rosemarie Steele MD, Landscape Supervisor) 07/15/2024 4:39 PM EST [facility] Tissue Urinary bladder structure / Unknown 07/13/2024 07/15/2024 11:47 AM EST us Chuck Trammell MD LAB PATHOLOGY ORDERABLES Fi nal Result [facility] [address] [place] [address], documented in this encounter Visit Diagnoses Diagnosis 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 (CMS/HCC V24, CMS/HCC V28) Malignant neoplasm of anterior wall of urinary bladder documented in this encounter Care Teams Blender / Cook Relationship Specialty Start Date End Date Physician, Pcp Unknown PCP - General 12/03/24 documented as of this encounter
== END 2025-01-04 12:07 | disposition home or self-care (01) ==
LOC: HO.HMCC 10:45
PROVIDERS: PCP Internal Medicine; Visit Provider Internal Medicine
DX: I10 Essential (primary) hypertension (principal); I48.0 Paroxysmal atrial fibrillation; D69.6 Thrombocytopenia, unspecified

== ENCOUNTER → 2025-01-04 10:44 | Outpatient (BNVA) | payer MEDICARE, SELFPAY | PROVIDERS: PCP Internal Medicine; Visit Provider Internal Medicine | DX: I10 Essential (primary) hypertension (principal); I48.0 Paroxysmal atrial fibrillation; H81.09 Meniere's disease, unspecified ear; K21.9 Gastro-esophageal reflux disease without esophagitis; D69.6 Thrombocytopenia, unspecified; Z79.01 Long term (current) use of anticoagulants | CPT/HCPCS: 99212 ==

== ENCOUNTER → 2025-01-14 07:48 | Outpatient (REF) | payer MEDICARE, SELFPAY ==
--- OUTSIDE RECORDS SUMMARY | 2025-01-14 07:52 | XMS_ITS | Encounter Summary ---
Author Organization [facility] Address [address] [place] [address] Care Team Providers Care Gun Fertilizer Name Role Phone Physician, Pcp Unknown Primary Care Provider Monica vailable Encounter Details Date Type Department Care Team (Late st Contact Info) Description 07/15/2024 Lab Requisition [facility] - Main Lab [address] [facility] [place] [address] Chuck Trammell MD [address] [facility] [address] [place] [address] 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 [...] situ: Not identified 07/15/2024 4:39 PM EST [facility] Clinical Information C67.3 [id number] 07/15/2024 4:39 PM EST [facility] [...] paraffin embedded. Technical pathology services provided by [facility] [address] [address] [place] [address] (CLIA #[id number]/S rosemarie Steele MD, Rd Scientist) 07/15/2024 4:39 PM EST [facility] Tissue Urinary bladder structure / Unknown 07/13/2024 07/15/2024 11:47 AM EST us Chuck Trammell MD LAB PATHOLOGY ORDERABLES Fi nal Result [facility] [address] [place] [address], documented in this encounter Visit Diagnoses Diagnosis 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 (CMS/HCC V24, CMS/HCC V28) Malignant neoplasm of anterior wall of urinary bladder documented in this encounter Care Teams Gun Fertilizer Relationship Specialty Start Date End Date Physician, Pcp Unknown PCP - General 12/03/24 documented as of this encounter
--- OUTSIDE RECORDS SUMMARY | 2025-01-14 07:52 | XMS_ITS | Encounter Summary ---
Author Organization [facility] Address [address] [place] [address] Care Team Providers Care Operations Vice President Name Role Phone Physician, Pcp Unknown Primary Care Provider Monica vailable Encounter Details Date Type Department Care Team (Late st Contact Info) Description 07/28/2024 Lab Requisition [facility] - Main Lab [address] [facility] [place] [address] Chuck Trammell MD [address] [place] [address] Urinary tract infection, site not specified; Acute [...] Urine No growth 07/29/2024 1:19 PM EDT [facility] [place] ([facility]) [facility] Urine Urine specimen obtained by clean catch procedure / Unknown 07/28/2024 9:15 AM EDT 07/28/2024 7:07 PM EDT Chuck Trammell MD LAB MICROBIOLOGY - GENERAL ORDERABLES Final Result [facility] ([facility]) [facility] [address] [place] [address], documented in this encounter Visit Diagnoses Diagnosis Urinary tract infection, site not specified Acute cystitis without hematuria documented in this encounter Care Teams Operations Vice President Relationship Specialty Start Date End Date Physician, Pcp Unknown PCP - General 12/03/24 documented as of this encounter
--- OUTSIDE RECORDS SUMMARY | 2025-01-14 07:52 | XMS_ITS | Encounter Summary ---
Author Organization [facility] Address [address] [place] [address] Care Team Providers Care Service Center Manager Name Role Phone Physician, Pcp Unknown Primary Care Provider Monica vailable Encounter Details Date Type Department Care Team (Late st Contact Info) Description 07/15/2024 Lab Requisition [facility] - Main Lab 299 [facility] [place] [address] Chuck Trammell MD [address] [facility] [address] [place] [address] Personal history of malignant neoplasm of bladder [...] evaluation and interpretation. 07/28/2024 10:52 AM EDT [facility] ([facility]) [facility] Addendum electronically signed by Josr Burgos MD on 07/28/2024 at 10:52 AM Final Diagnosis A. Urine, cystoscopic ([id number]): Atypical urothelial cells. Note: Based upon the cytologic findings, UroVysion testing will be performed, the result to follow in an addendum. 07/28/2024 10:52 AM [facility] Clinical Information History of bladder neoplasm (malignant) Z85.51 Urine cytology with reflex UroVysion (AUC/SHGUC) 07/28/2024 10:52 AM [facility] Gross Description A. Cystoscopic, ([id number]) Urine: Received one ThinPrep slide for cytology. 07/28/2024 10:52 AM [facility] Disclaimer Unless otherwise specified, all tissue is 10% NB formalin fixed and paraffin embedded. 07/28/2024 10:52 AM [facility] Tissue Cystoscope / Unknown 07/15/2024 1:45 PM EST us Chuck Trammell MD LAB PATHOLOGY ORDERABLES Ed ited Result - Final [facility] [address] [place] [address], documented in this encounter Visit Diagnoses Diagnosis Personal history of malignant neoplasm of bladder documented in this encounter Care Teams Service Center Manager Relationship Specialty Start Date End Date Physician, Pcp Unknown PCP - General 12/03/24 documented as of this encounter
--- OUTSIDE RECORDS SUMMARY | 2025-01-14 07:52 | XMS_ITS | Encounter Summary ---
Author Organization [facility] Address [address] [place] [address] Care Team Providers Care Promotion Producer Name Role Phone Physician, Pcp Unknown Primary Care Provider Monica vailable Encounter Details Date Type Department Care Team (Late st Contact Info) Description 12/03/2024 Lab Requisition [facility] - Main Lab 299 [facility] [place] [address] Chuck Trammell MD [address] [facility] [address] [place] [address] Personal history of malignant neoplasm of bladder [...] Associated Diagnosis Comments AP OUTSIDE CONSULT Routine 11/25/2024 12 :00 AM EDT Personal history of malignant neoplasm of bladder documented in this encounter Results * Anatomic pathology outside consult (11/25/2024 12:00 AM EDT) Final Diagnosis A. Urine, Voided, [id number]: Negative for high grade urothelial carcinoma. Results of UroVysion fluorescence in situ hybridization (FISH) testing: Although FISH was performed, insufficient non-obscured hybridization signals are present for evaluation and interpretation. 12/14/2024 4:51 PM EDT [facility] ([facility]) [facility] Clinical Information History of bladder neoplasm (malignant) Z85.51 Urine Cytology/FISH (now) 12/14/2024 4:51 PM EDT [facility] Gross Description A. Urine, Voided, [id number]: Received one ThinPrep slide for cytology and one ThinPrep slide for UroVysion FISH 12/14/2024 4:51 PM EDT [facility] Disclaimer Unless otherwise specified, all tissue is 10% NB formalin fixed and paraffin embedded. Technical pathology services provided by [facility] at [address] [place] [address] [address], [place] [address] (CLIA #[id number]/Su Steele MD, Furniture Technician) 12/14/2024 4:51 PM EDT [facility] Tissue Urine specimen from urethra / Unknown 11/25/2024 12/03/2024 2:06 PM EDT us Chuck Trammell MD LAB PATHOLOGY ORDERABLES Fi nal Result [facility] [address] [place] [address], documented in this encounter Visit Diagnoses Diagnosis Personal history of malignant neoplasm of bladder documented in this encounter Care Teams Promotion Producer Relationship Specialty Start Date End Date Physician, Pcp Unknown PCP - General 12/03/24 documented as of this encounter
--- OUTSIDE RECORDS SUMMARY | 2025-01-14 07:52 | XMS_ITS | Encounter Summary ---
Author Organization [facility] Address [address] [place] [address] Care Team Providers Care Crown Assembly Machine Set Up Mechanic Name Role Phone Physician, Pcp Unknown Primary Care Provider Monica vailable Encounter Details Date Type Department Care Team (Late st Contact Info) Description 06/03/2024 Lab Requisition [facility] - Main Lab 299 [facility] [place] [address] Chuck Trammell MD [address] [facility] [address] [place] [address] Personal history of malignant neoplasm of bladder [...] for urothelial carcinoma. 06/12/2024 5:21 PM EST [facility] ([facility] HOSPITAL LAB Clinical Information History of bladder neoplasm (malignant) Z85.51 Urine Cytology/FISH (now) 06/12/2024 5:21 PM EST [facility] Gross Description A. Urine, Voided, ([id number]): Received is one ThinPrep slide for cytology screen and one ThinPrep slide for UroVysion FISH 06/12/2024 5:21 PM [facility] Disclaimer Unless otherwise specified, all tissue is 10% NB formalin fixed and paraffin embedded. Technical pathology services provided by [facility] at [address] [facility] [address] [place] [address] (CLIA #[id number]/Su Steele MD, Coil Former) 06/12/2024 5:21 PM [facility] Tissue Urine specimen from urethra / Unknown 05/27/2024 06/03/2024 11:08 AM EST us Chuck Trammell MD LAB PATHOLOGY ORDERABLES Fi nal Result [facility] [address] [place] [address], documented in this encounter Visit Diagnoses Diagnosis Personal history of malignant neoplasm of bladder documented in this encounter Care Teams Crown Assembly Machine Set Up Mechanic Relationship Specialty Start Date End Date Physician, Pcp Unknown PCP - General 12/03/24 documented as of this encounter
--- OUTSIDE RECORDS SUMMARY | 2025-01-14 07:52 | XMS_ITS | Clinical Summary ---
Author Organization [address] [facility] Address [address] [place] [address] Phone Care Team Providers Care Bus Assistant Name Role Phone Physician, Pcp Unknown Primary Care Provider Monica vailable Encounters Date Type Department Care Team Description 12/03/2024 Lab Requisition [facility] - Main Lab [address] [facility] [address] Chuck Trammell MD Personal history of malignant neoplasm of bladder from Last 3 Months Social History Tobacco Use Types Packs/Day Years Used Date Smoking Tobacco: Never Assessed Sex and Gender Information Value Date Recorded Sex Assigned at Not on file Legal Sex Male 9:24 AM EST Gender Identity Not on file Sexual Orientation Not on file Plan of Treatment Health Maintenance Due Date Last Done Comments DTaP,Tdap,and Td Vaccines (1 - Tdap) 1966 Pneumococcal Vaccine: 50+ Ye ars (1 of 1 - PCV) 1997 Zoster Vaccines (1 of 2) 1997 RSV Immunization Adult Patie nts (1 - 1-dose 75+ series) 2022 COVID-19 Vaccine ( - 2023-2 5 season) 2024 Depression Screening 05/20/2024 Cholesterol Screening (Lipid Panel) 07/05/2024 Falls Risk Assessment 07/05/2024 Hepatitis C Screening 07/05/2024 Medicare Annual Wellness Visit 07/05/2024 Social Influencers of Health Screening 07/05/2024 Influenza Vaccine (#1) 2025 HIB Vaccines Aged Out No longer [...] Personal history of malignant neoplasm of bladder from Last 3 Months Results * Anatomic pathology outside consult (11/25/2024 12:00 AM EDT) Final Diagnosis A. Urine, Voided, [id number]: Negative for high grade urothelial carcinoma. Results of UroVysion fluorescence in situ hybridization (FISH) testing: Although FISH was performed, insufficient non-obscured hybridization signals are present for evaluation and interpretation. 12/14/2024 4:51 PM EDT [facility] Clinical Information History of bladder neoplasm (malignant) Z85.51 Urine Cytology/FISH (now) 12/14/2024 4:51 PM EDT [facility] Gross Description A. Urine, Voided, [id number]: Received one ThinPrep slide for cytology and one ThinPrep slide for UroVysion FISH 12/14/2024 4:51 PM EDT [facility] Disclaimer Unless otherwise specified, all tissue is 10% NB formalin fixed and paraffin embedded. Technical pathology services provided by [facility] at [address] [place] [address] [address], [place] [address] (CLIA #[id number]/Su Steele MD, Product Support Manager) 12/14/2024 4:51 PM EDT [facility] Tissue Urine specimen from urethra / Unknown 11/25/2024 12/03/2024 2:06 PM EDT us Chuck Trammell MD LAB PATHOLOGY ORDERABLES nal Result [facility]) [facility] [address] [place] [address], [place] [phone] from Last 3 Months Insurance [employer] - [place] MEDICARE ADVANTAGE Care Teams Bus Assistant Relationship Specialty Start Date End Date Physician, Pcp Unknown PCP - General 12/03/24
--- NOTE | 2025-01-14 07:53 | HM_ITS ---
* Total monitoring time 14 days. * Underlying rhythm is sinus with an average rate of 55/Min. About 63% of the time, rate < 60/Min. * Frequent supraventricular ectopy with a burden of 9.6%. * Frequent ventricular ectopy with a burden of 5.4%. Evidence of couplets, triplets, bigeminy, trigeminy. Multiple morphologies. * No significant pauses or high-grade AV blocks. * No patient markers or diary events. MTDD
--- NOTE | 2025-01-14 07:53 | CA_ITS ---
Transthoracic Echocardiogram Patient (Last, First, Middle): Bobo Yost H Gender: Male Date of : 1945 Age: 79 Procedure Date: 01/14/2025 Procedure Type: Transthoracic Echocardiogram Location: OP Height: 182.88 cm Weight: 113.4 kg BSA: 2.34 m2 Heart Rate: bpm BP: 122 / 80 mmHg Sub Assembly Team Worker: NOAH Referring MD: Francois Mars MD Piano Teacher: Francois Mars MD Symptoms: I48.91 - Unspecified atrial fibrillation Study Quality: Adequate w contrast ECG Rhythm: Sinus with PACs Conclusions: - The left ventricular systolic function is normal. The visually estimated ejection fraction is between 55-60%. - No obvious valvular pathology seen on this study. Findings Procedure Information Contrast agent, definity, is being given per protocol without apparent complications. The quality of the study was technically difficult. The study quality is limited by patients body habitus and lung artifact. Left Ventricle Normal left ventricular cavity size. There is normal left ventricular wall thickness. The left ventricular systolic function is normal. The visually estimated ejection fraction is between 55-60%. There is no evidence of regional wall motion abnormalities. Diastolic function is indeterminate on the basis of available data. Right Ventricle Normal right ventricular cavity size and systolic function. Atria Both atria are normal in size. Aortic Valve There is a normal trileaflet aortic valve. There is mild calcification of the aortic valve. There is no aortic valve stenosis. There is no aortic valve regurgitation. Mitral Valve There is mild anterior mitral leaflet thickening. There is mild mitral valve regurgitation. There is no mitral valve stenosis. Pulmonic Valve There is mild pulmonic valve regurgitation. Tricuspid Valve There is mild tricuspid valve regurgitation. There is no evidence of pulmonary hypertension. Great Vessels The asc aorta is normal in size. Venous The inferior vena cava was not well visualized. Pericardium/Pleural There is a trivial pericardial effusion. Prior Study Comparison No prior study available for comparison. Recommendations, Care & Conclusions No obvious valvular pathology seen on this study. Measurements 2D Linear Measurements IVSd: 0.84 0.6-0.9/0.6-1.0 cm LVIDd: 5.52 3.9-5.3/4.2-5.9 cm LVIDd Index: 2.36 2.4-3.2/2.2-3.1 cm/m2 LVIDs: 2.76 2.0-3.6 cm LVPWd: 0.65 0.7-1.1 cm LA Diam: 4.20 2.7-3.8/3.0-4.0 cm LAIDs Index: 1.79 1.5-2.3 cm/m2 LV Mass: 181.95 67-162/88-224 g LV Mass Index: 77.76 43-95/49-115 g/m2 LVOT Diam: 2.10 3.0+(-)1.3 cm 2D Systolic Function EF 4C: 50.20 >55% EF 2C: 53.70 >55% EF BiP: 54.70 >55% Mitral Valve MV Pk E: 0.58 MV PK A: 0.62 MV Decel Time: 261.00 E/A: 0.90 E'Medial: 4.90 E/E' Med: 11.80 PHT: 76.00 MVA PHT: 2.89 Decel [place]: 2.22 Aortic Valve AoV Pk Sammy: 1.80 AoV Mn Sammy: 1.14 AoV VTI: 0.33 AoV Pk Grad: 13.00 Aov Mn Grad: 6.00 SUSSY Cont.VTI: 2.95 LVOT LVOT Pk Sammy: 1.60 LVOT Mn Sammy: 1.02 LVOT VTI: 0.28 LVOT Pk Grad: 10.00 LVOT Mn Grad: 5.00 LVOT Diam: 2.10 LVOT Area: 3.46 Diastolic Function MV Pk E: 0.58 MV Pk A: 0.62 E/A: 0.90 E'Medial: 4.90 E/E' Med: 11.80 Right Ventricle TAPSE (mm): 16.90 Tricuspid Valve TR Pk Sammy: 2.64 TR Pk Grad: 28.00 RA Press: 3.00 RVSP: 31.00 Great Vessels Aorta Sinus of Valsalva: 3.80 2.0-3.5 cm Ao Asc: 3.90 2.1-3.4 cm Ao Arch: 3.60 Pulmonary Valve PV Pk Sammy: 0.82 Peak PV Grad: 3.00 KS Pk Sammy: 1.73 Updated in Other Vendor System with Status of Final Javier Sullivan MD electronically signed on 01/16/2025 11:09:07 AM with status of Final
== END ==
LOC: HO.CARD 07:48
PROVIDERS: PCP Internal Medicine; Visit Provider Internal Medicine Cardiovascular Disease
DX: I48.91 Unspecified atrial fibrillation (principal)
CPT/HCPCS: 93246; 93306; Q9957

== ENCOUNTER → 2025-01-14 07:53 | Outpatient (BNV) | payer MEDICARE, SELFPAY | PROVIDERS: PCP Internal Medicine; Visit Provider Internal Medicine | DX: I48.91 Unspecified atrial fibrillation (principal); I34.0 Nonrheumatic mitral (valve) insufficiency; I36.1 Nonrheumatic tricuspid (valve) insufficiency | CPT/HCPCS: 93306 ==

== ENCOUNTER 2025-03-09 08:57 | Outpatient (AMB) | payer MEDICARE, SELFPAY ==
--- NOTE | 2025-03-09 09:08 | MHC.OFFVIS ---
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 He expresses he was diagnosed with arthritis of the bilateral knees however right is the one that gives him the most problems. He states his pain has been going on for roughly 8 years. He reports toruble with kneeling and standing after kneeling. 4 months, his right knee went out entirely and could not bear weight. Has went to [facility] ED where x-rays were done and an ultrasound was done due to how bad his swelling was, ED wanted to rule out a blood clot. Ambulation becomes very difficult and tedious he says when his knee goes out. Getting in an out of a vehicle is difficult because he can not raise his knee up past a certain point. At a certain degree he reports hearing grinding. He has tried Tylenol and ibuprofen with minimal relief. He has tried Mariano wrap for swelling and says this has helped slightly only with swelling. He has not had a cortisone injection. He wishes to hold off on surgery if at all possible. Allergies No Known Allergies (No Known Allergies*) Allergy (Verified 01/04/25 11:11) Medication List - Last Reconciled 03/09/25 by Gregorio Abbasi MD apixaban (Eliquis) 5 mg PO BID 90 days hydrochlorothiazide 50 mg PO Q OTHER DAY PRN lisinopril 20 mg PO DAILY 90 days meclizine 25 mg PO TID PRN metoprolol succinate ER 25 mg PO DAILY multivitamin 1 tab PO DAILY omeprazole 20 mg PO DAILY [facility] Medical History Paroxysmal atrial fibrillation New onset atrial fibrillation Hypertrophic toenail Anemia Hx of bladder cancer Neoplasm of bladder History of prostate cancer Meniere disease Thrombocytopenia Elevated liver enzymes Prostate cancer Impaired fasting glucose Right bundle branch block GERD (gastroesophageal reflux disease) Essential hypertension Surgical History History of hernia repair History of prostatectomy Family History Father Diabetes mellitus Mother Alcoholic Brother Cancer of prostate Heart attack Brother No problems noted. Sister No problems noted. Social History Household Members: Spouse Housing: House Alcohol intake: never Patient Tobacco Use Status: Never used Tobacco e-Cigarette/Vaping Use: Never Used Second Hand Smoke Exposure: No Advance Directives Date on File: 07/02/22 service: Yes Current occupational status: retired Cognitive needs: No Hearing needs: Yes Vision needs: Yes Physical Exam Vital Signs: BMI result Body Mass Index 34.6 Const Other: Well-nourished well-developed very friendly male awake alert and oriented x3 in no acute distress Extrem Other: Right knee examination shows a mild effusion, palpable crepitus with range of motion, pain with range of motion, no instability Office Procedures AMB Joint Injection/Aspiration Joint Injection/Aspiration Primary Site: right knee Prep: site was prepped using aseptic technique Injected: 40 mg of, DepoMedrol and 1% plain lidocaine Procedure: The patient tolerated the procedure well Coding - Large joint Procedure code (CPT) selection complete Results Reviewed Results Reviewed: X-rays of the patient's right knee show moderate diffuse joint space narrowing, subchondral sclerosis, no acute bony abnormalities Assessment & Plan Assessment & Plan (1) Osteoarthritis of right knee: Code(s): M17.11 - Unilateral primary osteoarthritis, right knee Category: Medical Plan Mr. Yost presents with right knee pain due to degenerative joint disease. The risks and benefits of a right knee cortisone injection were discussed at length with the patient. The patient wished to proceed. He tolerated the injection well. He will continue with his activity modifications. He will contact me prior to his follow-up appointment in 3 months should any questions or concerns arise. Feel free to call me at any time should questions regarding his orthopedic management arise. Thank you very much for asking me to see this very friendly gentleman. I spent 20 minutes in reviewing the patient's records and imaging studies, seeing the patient and documenting in the medical record. Orders: Orders AMB Joint Injection/Aspiration Today M17.11 - Unilateral primary osteoarthritis, right knee Coding Level of Care Code New Pt Level 3 (53085) Complex EM visit Add On G2211 Diagnoses Osteoarthritis of right knee M17.11 CPT Codes Coding - 45633 Large joint: 68608 - Large joint ([id number])
[2025-03-09 09:11] VITALS: BMI 34.6
== END 2025-03-09 09:40 | disposition home or self-care (01) ==
LOC: HO.HOS 08:58
PROVIDERS: PCP Internal Medicine; Visit Provider Orthopaedic Surgery
DX: M17.11 Unilateral primary osteoarthritis, right knee (principal)
CPT/HCPCS: 20610; 99203

== ENCOUNTER → 2025-03-09 08:57 | Outpatient (BNVA) | payer MEDICARE, SELFPAY | PROVIDERS: PCP Internal Medicine; Visit Provider Orthopaedic Surgery | DX: M25.561 Pain in right knee (principal); M17.11 Unilateral primary osteoarthritis, right knee | CPT/HCPCS: 20610; 99202; J1010; J2003 ==

== ENCOUNTER 2025-03-29 12:53 | Outpatient (AMB) | payer MEDICARE, SELFPAY ==
--- NOTE | 2025-03-29 12:56 | A.OFFVIS_ITS ---
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 Required: No Accompanied by: Spouse Allergies No Known Allergies (No Known Allergies*) Allergy (Verified 01/04/25 11:11) Medication List - Last Reconciled 03/29/25 by Francois Mars MD apixaban (Eliquis) 5 mg PO BID 90 days hydrochlorothiazide 50 mg PO Q OTHER DAY PRN lisinopril 20 mg PO DAILY 90 days meclizine 25 mg PO TID PRN metoprolol succinate ER 25 mg PO DAILY multivitamin 1 tab PO DAILY omeprazole 20 mg PO DAILY HPI Comments Details: [age] year gentleman with background history of hypertension, prostate cancer, bladder cancer status post surgery and immune therapy, chronic thrombocytopenia, right bundle-branch block and gastroesophageal reflux disease. He also has been here disease and has been using hydrochlorothiazide. He was seen in his primary care physician office for a routine visit where EKGs showed atrial fibrillation with rapid ventricular response. The patient had no symptoms. He was started on metoprolol succinate 25 mg daily and was referred to us for further assessment. Today his EKGs showing sinus bradycardia with premature ventricular complexes. The patient is saying that he has no symptoms. Denying palpitations, chest pain or shortness of breath. He has had previously when he used to drink coffee we will get some palpitations but he has stopped doing that since it got the diagnosis of Meniere's disease. Blood pressure control has been good. From bladder cancer point of view, he has been stable. He will get repeat cystoscopy in 3 months. No recent bleeding. He is taking baby aspirin currently. 03/29/2025: He is here for follow-up. He has been started on apixaban on previous visit. He had echocardiography done which showed preserved LV function. He also had Holter monitoring done we did not show atrial fibrillat ion but did show frequent PACs and PVCs. He has been fairly active without any chest discomfort shortness of breath. He is taking apixaban and metoprolol currently. [facility] Medical History Paroxysmal atrial fibrillation New onset atrial fibrillation Hypertrophic toenail Anemia Hx of bladder cancer Neoplasm of bladder History of prostate cancer Meniere disease Thrombocytopenia Elevated liver enzymes Prostate cancer Impaired fasting glucose Right bundle branch block GERD (gastroesophageal reflux disease) Essential hypertension Surgical History History of hernia repair History of prostatectomy Family History Father Diabetes mellitus Mother Alcoholic Brother Cancer of prostate Heart attack Brother No problems noted. Sister No problems noted. Social History Household Members: Spouse Housing: House Alcohol intake: never Patient Tobacco Use Status: Never used Tobacco e-Cigarette/Vaping Use: Never Used Second Hand Smoke Exposure: No Advance Directives Date on File: 07/02/22 service: Yes Current occupational status: retired Cognitive needs: No Hearing needs: Yes Vision needs: Yes Review of Systems Const Denies chills, Denies fatigue, Denies fever(s), Denies frequent falls, Denies weakness, Denies weight gain and Denies weight loss ENT Denies dizziness Card Denies chest pain, Denies leg edema, Denies lightheadedness, Denies palpitations, Denies dyspnea and Denies dyspnea on exertion Resp Denies cough, Denies dyspnea and Denies dyspnea on exertion GI Denies hematochezia Musc Denies abnormal gait, Denies muscle weakness, Denies numbness, Denies radiating pain into limb and Denies tingling Neuro Denies abnormal gait, Denies dizziness, Denies frequent falls, Denies numbness, Denies tingling and Denies weakness Endo Denies fatigue and Denies palpitations Physical Exam Vital Signs: Last Vital Signs Pulse 50 03/29/25 12:59 BP 110/60 03/29/25 12:59 BMI result Body Mass Index 35.0 GENERAL APPEARANCE: in no acute distress, pleasant. NECK: no carotid bruit, no jugular venous distention. SKIN: no suspicious lesions, warm and dry. HEART: no murmurs, regular rate and rhythm. LUNGS: clear to auscultation bilaterally. ABDOMEN: soft, nontender. EXTREMITIES: 1+ edema. PERIPHERAL PULSES: equal. NEUROLOGIC: No gross deficits, AAO X 3 Assessment & Plan Assessment & Plan (1) Essential hypertension: Code(s): I10 - Essential (primary) hypertension Category: Medical (2) Paroxysmal atrial fibrillation: Code(s): I48.0 - Paroxysmal atrial fibrillation Category: Medical Plan 79-year-old gentleman presenting for paroxysmal atrial fibrillation. He was asymptomatic when he developed atrial fibrillation in the past. Echocardiography has shown preserved LV function. No atrial fibrillation on monitoring but he did have some PACs and PVCs. He is on metoprolol 25 mg daily. He is bradycardic and we may not be able to titrate the beta-una. If he had recurrent episodes then we may have to change him to Multaq and stopped the metoprolol. I have discussed with him that if he has recurrent atrial fibrillation then considering ablation would be a good option for him. He will think about that. He is denying any anginal symptoms. No shortness of breath. He will see us back in few months. Coding Level of Care Code Est Pt Level 4 (43195) Diagnoses Essential hypertension I10 Paroxysmal atrial fibrillation I48.0
[2025-03-29 12:59] VITALS: BP 110/60; PULSE 50; BMI 35.0
--- OUTSIDE RECORDS SUMMARY | 2025-03-29 14:58 | XMS_ITS | Encounter Summary ---
Author Organization [facility] Address [address] [place] [address] Care Team Providers Care Railroad Maintenance Clerk Name Role Phone Physician, Pcp Unknown Primary Care Provider Monica vailable Encounter Details Date Type Department Care Team (Late st Contact Info) Description 07/15/2024 Lab Requisition [facility] - Main Lab [address] [facility] [place] [address] Chuck Trammell MD [address] [facility] [address] [place] [address] Personal history of malignant neoplasm of bladder [...] evaluation and interpretation. 07/28/2024 10:52 AM EDT [facility] ([facility]) [facility] Addendum electronically signed by Josr Burgos MD on 07/28/2024 at 10:52 AM Final Diagnosis A. Urine, cystoscopic ([id number]): Atypical urothelial cells. Note: Based upon the cytologic findings, UroVysion testing will be performed, the result to follow in an addendum. 07/28/2024 10:52 AM [facility] Clinical Information History of bladder neoplasm (malignant) Z85.51 Urine cytology with reflex UroVysion (AUC/SHGUC) 07/28/2024 10:52 AM [facility] Gross Description A. Cystoscopic, ([id number]) Urine: Received one ThinPrep slide for cytology. 07/28/2024 10:52 AM [facility] Disclaimer Unless otherwise specified, all tissue is 10% NB formalin fixed and paraffin embedded. 07/28/2024 10:52 AM [facility] Tissue Cystoscope / Unknown 07/15/2024 1:45 PM EST us Chuck Trammell MD LAB PATHOLOGY ORDERABLES Ed ited Result - Final [facility] [address] [place] [address], documented in this encounter Visit Diagnoses Diagnosis Personal history of malignant neoplasm of bladder documented in this encounter Care Teams Railroad Maintenance Clerk Relationship Specialty Start Date End Date Physician, Pcp Unknown PCP - General 12/03/24 documented as of this encounter
--- OUTSIDE RECORDS SUMMARY | 2025-03-29 14:58 | XMS_ITS | Encounter Summary ---
Author Organization [facility] Address [address] [place] [address] Care Team Providers Care Children'S Service Worker Name Role Phone Physician, Pcp Unknown Primary Care Provider Monica vailable Encounter Details Date Type Department Care Team (Late st Contact Info) Description 07/15/2024 Lab Requisition [facility] - Main Lab [address] [facility] [place] [address] Chuck Trammell MD [address] [place] [address] 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 [...] situ: Not identified 07/15/2024 4:39 PM EST [facility] Clinical Information C67.3 [id number] 07/15/2024 4:39 PM EST [facility] Gross Description A. Urinary Bladder, : Labeled Bladder tumor. Received in formalin is a 0.3x0.3x0.2cm soft, combs-red tissue fragment, which is wrapped in paper and submitted in toto in one cassette, one piece, multiple levels. /al 07/15/2024 4:39 PM EST [facility] Disclaimer Unless otherwise specified, all tissue is 10% NB formalin fixed and paraffin embedded. 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
--- OUTSIDE RECORDS SUMMARY | 2025-03-29 14:58 | XMS_ITS | Clinical Summary ---
Author Organization [address] [facility] Address [address] [place] [address] Phone Care Team Providers Care Injection Maintenance Technician Name Role Phone Physician, Pcp Unknown Primary Care Provider Monica vailable Encounters Date Type Department Care Team Description 03/18/2025 Lab Requisition [facility] - Main Lab [address] [facility] [place] [address] Chuck Trammell MD Personal history [...] nts (1 - 1-dose 75+ series) 2022 Depression Screening 05/20/2024 Cholesterol Screening (Lipid Panel) 07/05/2024 Falls Risk Assessment 07/05/2024 Hepatitis C Screening 07/05/2024 Medicare Annual Wellness Visit 07/05/2024 Social Influencers of Health Screening 07/05/2024 COVID-19 Vaccine (1 - 2023-2 5 season) 2025 Influenza Vaccine (#1) 2025 HIB Vaccines Aged [...] Procedure Name Priority Date/Time Associated Diagnosis Comments NON-GYNECOLOGIC CYTOLOGY Routine 03/03/2025 12:00 AM EDT Personal history of malignant neoplasm of bladder from Last 3 Months Results * Non-gynecologic cytology (03/03/2025 12:00 AM EDT) Final Diagnosis Urine, Voided, [id number]: Negative for high grade urothelial carcinoma. Acute inflammation present. Results of UroVysion fluorescence in situ hybridization (FISH) testing: CEP3: Normal CEP7: Normal CEP17: Normal LSI 9p21: Normal Interpretation: Normal profile Controls stained appropriately. Note: The results are intended as a screening device and should be interpreted in association with other clinical and pathological findings. 03/24/2025 11:48 AM [facility] at 1148 EST Specimen A Adequacy Satisfactory for evaluation 03/24/2025 11:48 AM [facility] Clinical Information History of bladder neoplasm (malignant) Z85.51 Urine Cytology/FISH (now) 03/24/2025 11:48 AM [facility] Gross Description A. Urine, Voided, [id number]: Received one ThinPrep slide for cytology and one ThinPrep slide for UroVysion FISH 03/24/2025 11:48 AM [facility] Disclaimer Unless otherwise specified, all tissue is 10% NB formalin fixed and paraffin embedded. Technical pathology services provided by [facility] at [address], [place] [address] (CLIA #[id number]/Su Steele MD, Pourer Buggy Ladle) 03/24/2025 11:48 AM EST [facility] ([facility]) [facility] Urine Urine specimen from urethra / Unknown 03/03/2025 03/18/2025 12:01 PM EDT us Chuck Trammell MD LAB CYTOLOGY ORDERABLES Fin al Result [facility] ([facility]) [facility] [address] [place] [address], [place] [phone] from Last 3 Months Insurance [employer] - [place] MEDICARE ADVANTAGE Care Teams Injection Maintenance Technician Relationship Specialty Start Date End Date Physician, Pcp Unknown PCP - General 12/03/24
--- OUTSIDE RECORDS SUMMARY | 2025-03-29 14:58 | XMS_ITS | Encounter Summary ---
Author Organization [facility] Address [address] [place] [address] Care Team Providers Care Template Checker Name Role Phone Physician, Pcp Unknown Primary Care Provider Monica vailable Encounter Details Date Type Department Care Team (Late st Contact Info) Description 07/28/2024 Lab Requisition [facility] - Main Lab [address] [facility] [place] [address] Chuck Trammell MD [address] [place] [address] Urinary tract infection, site not specified; Acute [...] Urine No growth 07/29/2024 1:19 PM EDT [facility] [place] ([facility]) [facility] Urine Urine specimen obtained by clean catch procedure / Unknown 07/28/2024 9:15 AM EDT 07/28/2024 7:07 PM EDT Chuck Trammell MD LAB MICROBIOLOGY - GENERAL ORDERABLES Final Result [facility] ([facility]) [facility] [address] [place] [address], documented in this encounter Visit Diagnoses Diagnosis Urinary tract infection, site not specified Acute cystitis without hematuria documented in this encounter Care Teams Template Checker Relationship Specialty Start Date End Date Physician, Pcp Unknown PCP - General 12/03/24 documented as of this encounter
--- OUTSIDE RECORDS SUMMARY | 2025-03-29 14:58 | XMS_ITS | Encounter Summary ---
Author Organization [facility] Address [address] [place] [address] Care Team Providers Care Psychologist Clinical Name Role Phone Physician, Pcp Unknown Primary Care Provider Monica vailable Encounter Details Date Type Department Care Team (Late st Contact Info) Description 03/18/2025 Lab Requisition [facility] - Main Lab [address] [facility] [place] [address] Chuck Trammell MD [address] [facility] [address] [place] [address] Personal history of malignant neoplasm of bladder [...] bladder documented in this encounter Results * Non-gynecologic cytology (03/03/2025 12:00 AM EDT) Final Diagnosis Urine, Voided, [id number]: Negative for high grade urothelial carcinoma. Acute inflammation present. Results of UroVysion fluorescence in situ hybridization (FISH) testing: CEP3: Normal CEP7: Normal CEP17: Normal LSI 9p21: Normal Interpretation: Normal profile Controls stained appropriately. Note: The results are intended as a screening device and should be interpreted in association with other clinical and pathological findings. 03/24/2025 11:48 AM EST [facility] ([facility]) HOSPITAL LAB at 1148 EST Specimen A Adequacy Satisfactory for evaluation 03/24/2025 11:48 AM [facility] Clinical Information History of bladder neoplasm (malignant) Z85.51 Urine Cytology/FISH (now) 03/24/2025 11:48 AM [facility] Gross Description A. Urine, Voided, [id number]: Received one ThinPrep slide for cytology and one ThinPrep slide for UroVysion FISH 03/24/2025 11:48 AM [facility] Disclaimer Unless otherwise specified, all tissue is 10% NB formalin fixed and paraffin embedded. Technical pathology services provided by [facility] at [address] [place] [address] [address], [place] [address] (CLIA #[id number]/Su Steele MD, Field Services Manager) 03/24/2025 11:48 AM [facility] Urine Urine specimen from urethra / Unknown 03/03/2025 03/18/2025 12:01 PM EDT us Chuck Trammell MD LAB CYTOLOGY ORDERABLES Fin al Result [facility] [address] [place] [address], documented in this encounter Visit Diagnoses Diagnosis Personal history of malignant neoplasm of bladder documented in this encounter Care Teams Psychologist Clinical Relationship Specialty Start Date End Date Physician, Pcp Unknown PCP - General 12/03/24 documented as of this encounter
--- OUTSIDE RECORDS SUMMARY | 2025-03-29 14:58 | XMS_ITS | Encounter Summary ---
Author Organization [facility] Address [address] [place] [address] Care Team Providers Care Half Section Ironer Name Role Phone Physician, Pcp Unknown Primary Care Provider Monica vailable Encounter Details Date Type Department Care Team (Late st Contact Info) Description 06/03/[address] [facility] - Main Lab [address] [facility] [place] [address] Chuck Trammell MD [address] [facility] [address] [place] [address] Personal history of malignant neoplasm of bladder [...] for urothelial carcinoma. 06/12/2024 5:21 PM EST [facility] ([facility] HOSPITAL LAB Clinical Information History of bladder neoplasm (malignant) Z85.51 Urine Cytology/FISH (now) 06/12/2024 5:21 PM EST [facility] Gross Description A. Urine, Voided, ([id number]): Received is one ThinPrep slide for cytology screen and one ThinPrep slide for UroVysion FISH 06/12/2024 5:21 PM [facility] Disclaimer Unless otherwise specified, all tissue is 10% NB formalin fixed and paraffin embedded. Technical pathology services provided by [facility] [address] [facility] [address] [place] [address] (CLIA #[id number]/Su Steele MD, Professional Architect) 06/12/2024 5:21 PM [facility] Tissue Urine specimen from urethra / Unknown 05/27/2024 06/03/2024 11:08 AM EST us Chuck Trammell MD LAB PATHOLOGY ORDERABLES Fi nal Result [facility] [address] [place] [address], documented in this encounter Visit Diagnoses Diagnosis Personal history of malignant neoplasm of bladder documented in this encounter Care Teams Half Section Ironer Relationship Specialty Start Date End Date Physician, Pcp Unknown PCP - General 12/03/24 documented as of this encounter
--- OUTSIDE RECORDS SUMMARY | 2025-03-29 14:58 | XMS_ITS | Encounter Summary ---
Author Organization [facility] Address [address] [place] [address] Care Team Providers Care Oncology Pharmacist Name Role Phone Physician, Pcp Unknown Primary Care Provider Monica vailable Encounter Details Date Type Department Care Team (Late st Contact Info) Description 12/03/2024 Lab Requisition [facility] - Main Lab [address] [facility] [place] [address] Chuck Trammell MD [address] [facility] [address] [place] [address] Personal history of malignant neoplasm of bladder [...] AM EDT) Final Diagnosis A. Urine, Voided, [id number]: Negative for high grade urothelial carcinoma. Results of UroVysion fluorescence in situ hybridization (FISH) testing: Although FISH was performed, insufficient non-obscured hybridization signals are present for evaluation and interpretation. 12/14/2024 4:51 PM EDT [facility] ([facility]) [facility] Clinical Information History of bladder neoplasm (malignant) Z85.51 Urine Cytology/FISH (now) 12/14/2024 4:51 PM EDT [facility] Gross Description A. Urine, Voided, [id number]: Received one ThinPrep slide for cytology and one ThinPrep slide for UroVysion FISH 12/14/2024 4:51 PM EDT [facility] Disclaimer Unless otherwise specified, all tissue is 10% NB formalin fixed and paraffin embedded. Technical pathology services provided by [facility] at [address] [place] [address] [address], [place] [address] (CLIA #[id number]/Su Steele MD, Electronic News Gathering Camera Person) 12/14/2024 4:51 PM EDT [facility] Tissue Urine specimen from urethra / Unknown 11/25/2024 12/03/2024 2:06 PM EDT us Chuck Trammell MD LAB PATHOLOGY ORDERABLES Fi nal Result [facility] [address] [place] [address], documented in this encounter Visit Diagnoses Diagnosis Personal history of malignant neoplasm of bladder documented in this encounter Care Teams Oncology Pharmacist Relationship Specialty Start Date End Date Physician, Pcp Unknown PCP - General 12/03/24 documented as of this encounter
== END 2025-03-29 13:30 | disposition home or self-care (01) ==
LOC: HO.HCS 12:54
PROVIDERS: PCP Internal Medicine; Visit Provider Internal Medicine Cardiovascular Disease
DX: I10 Essential (primary) hypertension (principal); I48.0 Paroxysmal atrial fibrillation
CPT/HCPCS: 99214

== ENCOUNTER → 2025-03-29 12:53 | Outpatient (BNVA) | payer MEDICARE, SELFPAY | PROVIDERS: PCP Internal Medicine; Visit Provider Internal Medicine Cardiovascular Disease | DX: Z71.2 Person consulting for explanation of examination or test findings (principal); I10 Essential (primary) hypertension; I48.0 Paroxysmal atrial fibrillation | CPT/HCPCS: 99212 ==